=== PATIENT | female | born 1945 | race Caucasian/White ===

== ENCOUNTER → 2020-06-09 09:13 | Outpatient (BNVA) | payer MEDICARE, SELFPAY | PROVIDERS: PCP Internal Medicine; Visit Provider Surgery Vascular Surgery | DX: I83.893 Varicose veins of bilateral lower extremities with other complications (principal); I83.12 Varicose veins of left lower extremity with inflammation | CPT/HCPCS: 99213 ==

== ENCOUNTER 2020-06-22 10:55 | Outpatient (REF) | payer MEDICARE, SELFPAY | END 2020-06-22 10:56 | disposition home or self-care (01) | LOC: HO.LAB 10:55 | PROVIDERS: Visit Provider Nurse Practitioner Family | DX: N39.0 Urinary tract infection, site not specified (principal); R31.9 Hematuria, unspecified | CPT/HCPCS: 87086; 87088; 87186 ==

== ENCOUNTER → 2020-06-24 08:38 | Outpatient (BNVA) | payer MEDICARE, SELFPAY | PROVIDERS: PCP Internal Medicine; Referring Provider Internal Medicine; Visit Provider Surgery Vascular Surgery | DX: I83.12 Varicose veins of left lower extremity with inflammation (principal) | CPT/HCPCS: 36482 ==

== ENCOUNTER 2020-06-27 15:32 | Outpatient (REF) | payer MEDICARE, SELFPAY ==
--- NOTE | 2020-06-27 | US_ITS ---
EXAMINATION: TRIPLEX SCANNING OF LEFT LOWER EXTREMITY; SUPERFICIAL ULTRASOUND WITH DOPPLER OF LEFT LOWER EXTREMITY CLINICAL INFORMATION: Status post venous seal ablation of the left great saphenous vein. COMPARISON: 10/16/2019. TECHNIQUE: Color flow triplex imaging and compression Doppler were performed as well as superficial ultrasound with Doppler. FINDINGS: TRIPLEX SCANNING OF LEFT LOWER EXTREMITY: Respiratory variation, normal compression and augmented flow are noted throughout the lower extremity. The visualized common femoral vein, femoral vein, profunda femoral vein, popliteal vein and the calf veins show no evidence of deep venous thrombosis. There is no evidence of Bender's cyst. SUPERFICIAL ULTRASOUND WITH DOPPLER OF LEFT LOWER EXTREMITY: The left great saphenous vein is occluded with thrombus or occlusion extending in through the saphenofemoral junction for a length of 0.8 cm. There is no evidence of thrombus extending to the wall of the great saphenous vein and there is no impediment to flow. The deep venous system otherwise appears normal. US/US venous duplex LE IMPRESSION: Left great saphenous vein is occluded 0.8 cm with a small nubbin of thrombus/glue extending into the left common femoral vein.
== END 2020-06-27 15:33 | disposition home or self-care (01) ==
LOC: HO.US 15:32
PROVIDERS: PCP Internal Medicine; Visit Provider Surgery Vascular Surgery
DX: M79.605 Pain in left leg (principal)
CPT/HCPCS: 93971

== ENCOUNTER → 2020-07-07 09:04 | Outpatient (BNVA) | payer MEDICARE, SELFPAY | PROVIDERS: PCP Internal Medicine; Visit Provider Surgery Vascular Surgery | DX: I83.12 Varicose veins of left lower extremity with inflammation (principal); I83.11 Varicose veins of right lower extremity with inflammation; Z96.653 Presence of artificial knee joint, bilateral; Z88.8 Allergy status to other drugs, medicaments and biological substances; Z88.0 Allergy status to penicillin; Z91.013 Allergy to seafood | CPT/HCPCS: 99212 ==

== ENCOUNTER 2020-08-03 12:14 | Outpatient (REF) | payer MEDICARE, SELFPAY | END 2020-08-03 12:15 | disposition home or self-care (01) | LOC: HO.LAB 12:14 | PROVIDERS: Visit Provider Nurse Practitioner Family | DX: Z13.9 Encounter for screening, unspecified (principal) | CPT/HCPCS: 87086 ==

== ENCOUNTER → 2020-08-12 09:00 | Outpatient (BNVA) | payer MEDICARE, SELFPAY | PROVIDERS: PCP Internal Medicine; Referring Provider Internal Medicine; Visit Provider Surgery Vascular Surgery | DX: I83.11 Varicose veins of right lower extremity with inflammation (principal) | CPT/HCPCS: 36482 ==

== ENCOUNTER 2020-08-15 11:20 | Outpatient (REF) | payer MEDICARE, SELFPAY ==
--- NOTE | 2020-08-15 | US_ITS ---
EXAMINATION: US VENOUS ULTRASOUND WITH DOPPLER LOWER EXTREMITY, RIGHT CLINICAL INFORMATION: Status post right venaSeal COMPARISON: None TECHNIQUE: Ultrasound of the deep veins is performed from the hip to the calf with compression sonography and color and pulse Doppler assessment. Spectral analysis with color-flow imaging is performed. FINDINGS: There is normal venous compression and respiratory variation and augmented flow. The visualized common femoral vein, superficial femoral vein, profunda femoral vein, popliteal vein, and the trifurcation region shows no evidence of deep venous thrombosis. There is no significant popliteal fossa cyst. There is greater saphenous venous clot approximately 5 cm from common femoral venous junction. US/US venous duplex LE RT IMPRESSION: No DVT demonstrated in the right lower extremity. There is a clot in the greater saphenous vein approximate 5 cm from common femoral venous junction.
== END 2020-08-15 11:21 | disposition home or self-care (01) ==
LOC: HO.HMGCX 11:20
PROVIDERS: PCP Internal Medicine; Visit Provider Surgery Vascular Surgery
DX: M79.604 Pain in right leg (principal)
CPT/HCPCS: 93971

== ENCOUNTER → 2020-08-23 08:49 | Outpatient (BNVA) | payer MEDICARE, SELFPAY | PROVIDERS: PCP Internal Medicine; Visit Provider Surgery Vascular Surgery | DX: I83.11 Varicose veins of right lower extremity with inflammation (principal); I73.00 Raynaud's syndrome without gangrene | CPT/HCPCS: 99212 ==

== ENCOUNTER 2020-08-24 11:29 | Outpatient (REF) | payer MEDICARE, SELFPAY ==
[2020-08-24 14:06] LABS: MANUAL DIFF FLAG NO
[2020-08-24 14:17] LABS: Basophils Percent Auto 0.4 % (0-2); Eosinophils Absolute Auto 0.1 X10*3/uL (0.0-0.4); Eosinophils Percent Auto 1.7 % (0-4); Hematocrit 41.6 % (37-47); Hemoglobin 13.5 g/dl (12.0-16.0); Imm Gran Abs Auto 0.01 X10*3/uL (0.00-0.03); Imm Gran Pct Auto 0.1 % (0.0-0.4); Lymphocytes Absolute Auto 2.4 X10*3/uL (1.2-4.9); Lymphocytes Percent Auto 32.9 % (20-40); Mean Corpuscular HGB Conc 32.5 g/dl (31.0-35.0); Mean Corpuscular Hemoglobin 31.3 pg (27.0-33.0); Mean Corpuscular Volume 96.5 fL (80-98); Mean Platelet Volume 10.3 fL (9.4-12.3); Monocytes Absolute Auto 0.7 X10*3/uL (0.1-1.2); Monocytes Percent Auto 9.8 % (2-11); Neutrophils Percent Auto 55.1 % (45-73); Platelet Count 246 X10*3/uL (160-400); Red Blood Count 4.31 X10*6/uL (4.20-5.50); Red Cell Distribution Width 12.5 % (11.0-16.0); White Blood Count 7.2 X10*3/uL (4.8-10.8)
[2020-08-24 14:46] LABS: Alanine Aminotransferase 27 U/L (0-31); Albumin Level 4.5 g/dL (3.5-5.0); Alkaline Phosphatase 76 U/L (39-117); Anion Gap 13 (12-20); Aspartate Amino Transferase 23 U/L (5-31); Bilirubin Direct < 0.2 mg/dL (0.0-0.5); Bilirubin Total 0.3 mg/dL (0.0-1.0); Blood Urea Nitrogen 20 mg/dL (9-16); Calcium 9.4 mg/dL (8.4-10.2); Carbon Dioxide 30 mmol/L (22-29); Chloride 103 mmol/L (96-108); Estimated Glomerular Filt Rate > 60; Glucose Random 92 mg/dL (60-115); Potassium 4.6 mmol/l (3.3-5.1); Sodium 141 mmol/L (135-145); Total Protein 7.3 g/dL (6.5-8.0)
[2020-08-24 14:56] LABS: TSH reflex Free T4 2.35 mIU/mL (0.32-4.0)
[2020-08-25 08:57] LABS: LDL Cholesterol Direct 108 mg/dL (<100)
[2020-08-28 11:37] LABS: Vitamin D 25-OH, D2 <4 ng/mL; Vitamin D 25-OH, D3 22 ng/mL; Vitamin D 25-OH, Total 22 ng/mL (30-100)
== END 2020-08-24 11:30 | disposition home or self-care (01) ==
LOC: HO.HMGCLDS 11:29
PROVIDERS: PCP Internal Medicine; Visit Provider Internal Medicine
DX: R03.0 Elevated blood-pressure reading, without diagnosis of hypertension (principal); Z00.01 Encounter for general adult medical examination with abnormal findings; E66.9 Obesity, unspecified; M19.90 Unspecified osteoarthritis, unspecified site
CPT/HCPCS: 36415; 80048; 80076; 82306; 83721; 84443; 85025

== ENCOUNTER 2020-12-22 07:58 | Outpatient (REF) | payer MEDICARE, SELFPAY ==
[2020-12-22 11:39] LABS: Hemoglobin 13.3 g/dl (12.0-16.0)
[2020-12-22 11:51] LABS: Alanine Aminotransferase 24 U/L (0-31); Albumin Level 4.4 g/dL (3.5-5.0); Alkaline Phosphatase 73 U/L (39-117); Anion Gap 13 (12-20); Aspartate Amino Transferase 20 U/L (5-31); Bilirubin Direct 0.2 mg/dL (0.0-0.5); Bilirubin Total 0.4 mg/dL (0.0-1.0); Blood Urea Nitrogen 19 mg/dL (9-16); Calcium 9.3 mg/dL (8.4-10.2); Carbon Dioxide 29 mmol/L (22-29); Chloride 104 mmol/L (96-108); Estimated Glomerular Filt Rate > 60; Glucose Fasting 101 mg/dL (60-99); Potassium 4.7 mmol/L (3.3-5.1); Sodium 141 mmol/L (135-145)
== END 2020-12-22 07:59 | disposition home or self-care (01) ==
LOC: HO.HMGCLDS 07:58
PROVIDERS: PCP Internal Medicine; Visit Provider Internal Medicine
DX: I10 Essential (primary) hypertension (principal); E66.9 Obesity, unspecified; I83.12 Varicose veins of left lower extremity with inflammation; H57.9 Unspecified disorder of eye and adnexa
CPT/HCPCS: 36415; 80053; 80076; 82248; 85014; 85018

== ENCOUNTER → 2021-03-16 09:50 | Outpatient (BNVA) | payer MEDICARE, SELFPAY | PROVIDERS: PCP Internal Medicine; Visit Provider Surgery Vascular Surgery | DX: I83.12 Varicose veins of left lower extremity with inflammation (principal) | CPT/HCPCS: 99212 ==

== ENCOUNTER 2021-05-27 11:52 | Emergency (ER) | payer MEDICARE, SELFPAY ==
[2021-05-27 11:54] VITALS: BP 157/79; PULSE 73; RESP 18; TEMP 36.8; O2SAT 97; BMI 36.3
--- NOTE | 2021-05-27 13:32 | ECG_ITS ---
Test Reason : HYPERTENSSION Blood Pressure : / mmHG Vent. Rate : 061 BPM Atrial Rate : 061 BPM P-R Int : 246 ms QRS Dur : 094 ms QT Int : 416 ms P-R-T Axes : -11 -29 -01 degrees QTc Int : 418 ms Sinus rhythm with 1st degree A-V block Cannot rule out Anterior infarct , age undetermined Abnormal ECG When compared with ECG of 17-AUG-2019 20:28, SD interval has increased Referred By: Janey Camacho Electronically Signed By:ALPA MARTINEZ
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
[2021-05-27] MEDS: Acetaminophen 325 MG TABLET 650 MG PO (14:14)
[2021-05-27 14:15] VITALS: BP 133/79; PULSE 61; RESP 18; O2SAT 98
[2021-05-27 14:17] LABS: MANUAL DIFF FLAG NO
[2021-05-27 14:22] LABS: Basophils Percent Auto 0.3 % (0-2); Eosinophils Absolute Auto 0.1 X10*3/uL (0.0-0.4); Eosinophils Percent Auto 1.6 % (0-4); Hematocrit 41.7 % (37-47); Hemoglobin 13.7 g/dl (12.0-16.0); Imm Gran Abs Auto 0.03 X10*3/uL (0.00-0.03); Imm Gran Pct Auto 0.3 % (0.0-0.4); Lymphocytes Absolute Auto 1.8 X10*3/uL (1.2-4.9); Lymphocytes Percent Auto 19.8 % (20-40); Mean Corpuscular HGB Conc 32.9 g/dl (31.0-35.0); Mean Corpuscular Hemoglobin 31.1 pg (27.0-33.0); Mean Corpuscular Volume 94.8 fL (80-98); Mean Platelet Volume 10.5 fL (9.4-12.3); Monocytes Absolute Auto 0.7 X10*3/uL (0.1-1.2); Neutrophils Absolute Auto 6.3 X10*3/uL (2.0-8.3); Platelet Count 205 X10*3/uL (160-400); Red Cell Distribution Width 12.2 % (11.0-16.0)
[2021-05-27 14:29] LABS: Anion Gap 13 (12-20); Blood Urea Nitrogen 12 mg/dL (9-16); Calcium 9.3 mg/dL (8.4-10.2); Carbon Dioxide 26 mmol/L (22-29); Chloride 107 mmol/L (96-108); Creatinine Clr Calc Pharmacy 76.2; Estimated Glomerular Filt Rate > 60; Glucose Random 96 mg/dL (60-115); Potassium 4.9 mmol/L (3.3-5.1); Sodium 141 mmol/L (135-145)
== END 2021-05-27 16:08 | disposition home or self-care (01) ==
PROVIDERS: Nurse Practitioner Family; Emergency Provider Emergency Medicine Emergency Medical Services; PCP Internal Medicine
DX: R03.0 Elevated blood-pressure reading, without diagnosis of hypertension (principal); I10 Essential (primary) hypertension; R51.9 Headache, unspecified; I73.00 Raynaud's syndrome without gangrene; F41.9 Anxiety disorder, unspecified; Z79.82 Long term (current) use of aspirin; Z79.899 Other long term (current) drug therapy
CPT/HCPCS: 36415; 80048; 85025; 93005; 99283; 99284

== ENCOUNTER → 2021-06-07 09:35 | Outpatient (BNVA) | payer MEDICARE, SELFPAY | PROVIDERS: PCP Internal Medicine; Referring Provider Internal Medicine; Visit Provider Nurse Practitioner Family | DX: I10 Essential (primary) hypertension (principal) | CPT/HCPCS: 99202 ==

== ENCOUNTER 2021-06-12 08:00 | Outpatient (REF) | payer MEDICARE, SELFPAY ==
[2021-06-12 11:54] LABS: MANUAL DIFF FLAG NO
[2021-06-12 12:14] LABS: Basophils Percent Auto 0.5 % (0-2); Eosinophils Absolute Auto 0.2 X10*3/uL (0.0-0.4); Eosinophils Percent Auto 1.8 % (0-4); Hematocrit 41.2 % (37-47); Hemoglobin 13.4 g/dl (12.0-16.0); Imm Gran Abs Auto 0.03 X10*3/uL (0.00-0.03); Imm Gran Pct Auto 0.4 % (0.0-0.4); Lymphocytes Percent Auto 23.7 % (20-40); Mean Corpuscular HGB Conc 32.5 g/dl (31.0-35.0); Mean Corpuscular Volume 95.4 fL (80-98); Mean Platelet Volume 11.4 fL (9.4-12.3); Monocytes Absolute Auto 0.8 X10*3/uL (0.1-1.2); Monocytes Percent Auto 9.3 % (2-11); Neutrophils Absolute Auto 5.3 X10*3/uL (2.0-8.3); Neutrophils Percent Auto 64.3 % (45-73); Platelet Count 261 X10*3/uL (160-400); Red Blood Count 4.32 X10*6/uL (4.20-5.50); Red Cell Distribution Width 12.4 % (11.0-16.0); White Blood Count 8.3 X10*3/uL (4.8-10.8)
[2021-06-12 12:20] LABS: Alanine Aminotransferase 25 U/L (0-31); Albumin Level 4.4 g/dL (3.5-5.0); Alkaline Phosphatase 71 U/L (39-117); Anion Gap 12 (12-20); Aspartate Amino Transferase 20 U/L (5-31); Bilirubin Total 0.6 mg/dL (0.0-1.0); Blood Urea Nitrogen 20 mg/dL (9-16); Calcium 9.6 mg/dL (8.4-10.2); Carbon Dioxide 28 mmol/L (22-29); Chloride 106 mmol/L (96-108); Cholesterol 155 mg/dL; Estimated Glomerular Filt Rate > 60; Glucose Fasting 107 mg/dL (60-99); HDL Cholesterol 55 mg/dL; LDL Cholesterol Calculated 87 mg/dl; Potassium 5.4 mmol/L (3.3-5.1); Sodium 141 mmol/L (135-145); Total Protein 7.2 g/dL (6.5-8.0); Triglycerides 68 mg/dL
== END 2021-06-12 08:01 | disposition home or self-care (01) ==
LOC: HO.HMGCLDS 08:00
PROVIDERS: PCP Internal Medicine; Visit Provider Internal Medicine
DX: E66.9 Obesity, unspecified (principal); E78.9 Disorder of lipoprotein metabolism, unspecified; I10 Essential (primary) hypertension
CPT/HCPCS: 36415; 80053; 80061; 85025

== ENCOUNTER 2021-06-14 07:34 | Outpatient (REF) | payer MEDICARE, SELFPAY ==
--- NOTE | ~2021-06-14 | US_ITS ---
EXAMINATION: US VENOUS DOPPLER LOWER EXTREMITY, BILATERAL CLINICAL INDICATION: Lower extremity varicose veins. COMPARISON: 08/15/2020 and 06/27/2020. TECHNIQUE: Color-flow triplex imaging and compression Doppler were performed to evaluate both the deep and the superficial systems bilaterally. To evaluate the superficial system, the examination was performed in the upright position. Color-flow Doppler ultrasound and compression ultrasound were utilized. In addition, maneuvers were utilized to demonstrate reflux. FINDINGS: 1. DEEP VENOUS ULTRASOUND OF THE RIGHT LOWER EXTREMITY: Common Femoral Vein: Compressible, normal respiratory variation and augmented flow. Femoral Vein: Compressible, normal color flow and augmentation. Popliteal Vein: Compressible, normal augmentation. Deep Reflux: There is no evidence of reflux in the deep system in either the common femoral vein or the popliteal vein. There is no evidence of a Bender's cyst. 2. SUPERFICIAL ULTRASOUND WITH DOPPLER OF RIGHT LOWER EXTREMITY GREAT SAPHENOUS VEIN: Saphenofemoral Junction: 1.0 cm. Reflux: No evidence of reflux. Maximum diameter: 1.0 Minimum diameter: 0.3 Reflux: The great saphenous vein is occluded at the proximal thigh. There is venous insufficiency throughout the remaining great saphenous vein from the mid thigh to the ankle measuring up to 3.2 seconds. DUPLICATED MEDIAL GREAT SAPHENOUS VEIN: Maximum Diameter: 0.5 cm Reflux: No reflux. DUPLICATED LATERAL GREAT SAPHENOUS VEIN: Diameter: None imaged. Reflux: N/A SMALL SAPHENOUS VEIN: Saphenopopliteal Junction: 0.2 cm. Reflux: No evidence of reflux. Minimum Diameter: 0.2 Reflux: No evidence of reflux. VEIN OF GIACOMINI: None imaged. PERFORATORS: Location: None imaged. Reflux: N/A VARICOSITIES: Location: Mid thigh, distal thigh, at knee and proximal calf. All varicosities measure 3 mm in diameter. Reflux: Reflux is demonstrated in all varicosities measuring up to 2.3 seconds. 3. DEEP VENOUS ULTRASOUND OF THE LEFT LOWER EXTREMITY: Common Femoral Vein: Compressible, normal respiratory variation and augmented flow. Femoral Vein: Compressible, normal color flow and augmentation. Popliteal Vein: Compressible, normal augmentation. Deep Reflux: Popliteal vein, greater than 3.1 seconds. There is no evidence of a Bender's cyst. 4. SUPERFICIAL ULTRASOUND WITH DOPPLER OF LEFT LOWER EXTREMITY GREAT SAPHENOUS VEIN: Saphenopopliteal Junction: 0.6 cm. Reflux: No evidence of reflux. Maximum Diameter: 0.6 Minimum Diameter: 0.2 Reflux: There is 1.5 seconds of reflux at the proximal thigh. The saphenous vein is closed from the mid thigh to below the knee. The saphenous vein is patent at the mid calf and ankle demonstrating gross reflux up to 3.4 seconds. DUPLICATED MEDIAL GREAT SAPHENOUS VEIN: Maximum Diameter: None imaged. Reflux: N/A DUPLICATED LATERAL GREAT SAPHENOUS VEIN: Diameter: 0.3 cm Reflux: No reflux. SMALL SAPHENOUS VEIN: Saphenofemoral Junction: 0.2 cm. Reflux: No evidence of reflux. Minimum Diameter: 0.1 Reflux: No evidence of reflux. VEIN OF GIACOMINI: None imaged. PERFORATORS: Location: None imaged. Reflux: N/A VARICOSITIES: Location: Proximal calf, 0.3 cm. Reflux: Greater than 0.9 seconds of reflux. US/US venous duplex LE BI IMPRESSION: 1. The right great saphenous vein is occluded at the proximal thigh, however there is gross venous insufficiency from the mid thigh to the ankle below the site of occlusion. 2. The left great saphenous vein is occluded from the mid thigh to below the knee. There is reflux within the left great saphenous vein at the mid calf and ankle. 3. There are bilateral refluxing varicosities. 4. Deep venous insufficiency involving the left popliteal vein. 5. No evidence of DVT.
== END 2021-06-14 07:35 | disposition home or self-care (01) ==
LOC: HO.US 07:34
PROVIDERS: PCP Internal Medicine; Visit Provider Surgery Vascular Surgery
DX: I83.12 Varicose veins of left lower extremity with inflammation (principal)
CPT/HCPCS: 93970

== ENCOUNTER 2021-06-19 08:01 | Outpatient (REF) | payer MEDICARE, SELFPAY ==
[2021-06-19 12:07] LABS: Anion Gap 12 (12-20); Carbon Dioxide 25 mmol/L (22-29); Chloride 109 mmol/L (96-108); Potassium 4.9 mmol/L (3.3-5.1); Sodium 141 mmol/L (135-145)
== END 2021-06-19 08:02 | disposition home or self-care (01) ==
LOC: HO.HMGCLDS 08:01
PROVIDERS: PCP Internal Medicine; Visit Provider Internal Medicine
DX: E87.5 Hyperkalemia (principal)
CPT/HCPCS: 36415; 80051

== ENCOUNTER → 2021-06-27 09:01 | Outpatient (BNVA) | payer MEDICARE, SELFPAY | PROVIDERS: PCP Internal Medicine; Visit Provider Surgery Vascular Surgery | DX: I83.11 Varicose veins of right lower extremity with inflammation (principal); I10 Essential (primary) hypertension; E78.5 Hyperlipidemia, unspecified; Z87.891 Personal history of nicotine dependence; Z96.653 Presence of artificial knee joint, bilateral | CPT/HCPCS: 99212 ==

== ENCOUNTER → 2021-07-24 08:10 | Outpatient (REF) | payer MEDICARE, SELFPAY ==
--- NOTE | 2021-07-24 08:13 | CA_ITS ---
Transthoracic Echocardiogram Patient (Last, First, Middle): Eufemia Jimenez P Gender: Female Date of : 1945 Age: 75 Procedure Date: 07/24/2021 Procedure Type: Transthoracic Echocardiogram Location: OP Height: 160.02 cm Weight: 95.26 kg BSA: 1.97 m2 Heart Rate: bpm BP: 138 / 80 mmHg Railroad Surveyor: MINDY Izquierdo MD: Rachael Shah NP-[facility] Specialist: Delfin Porras MD Symptoms: I10 - Essential (primary) hypertension Study Quality: Fair ECG Rhythm: Sinus Conclusions: - 1. Normal LV systolic function with impaired relaxation filling pattern 2. Mild aortic stenosis 3. Normal RV systolic pressure 4. No gross pericardial effusion Findings Left Ventricle Normal left ventricular size, thickness, and systolic function. The visually estimated ejection fraction is between 55-60%. Spectral Doppler is indicative of an impaired relaxation filling pattern. E/E prime ratio is between 8 and 15 consistent with indeterminate filling pressures. Right Ventricle Normal right ventricular cavity size and systolic function. Atria The left atrium is likely dilated. Interatrial shunt cannot be excluded. The right atrium is normal in size. Aortic Valve There is mild calcification of the aortic valve. There is mild thickening of the aortic valve. There is mild aortic valve stenosis. The peak aortic gradient is 18 mmHg.The mean gradient is 9 mmHg. The aortic valve area is 1.72 cm2. There is no aortic valve regurgitation. Mitral Valve There is mild anterior and posterior mitral leaflet thickening. There is mild mitral annular calcification. There is trace mitral valve regurgitation. There is no mitral valve stenosis. Pulmonic Valve The pulmonic valve was not well visualized. Tricuspid Valve Likely normal tricuspid valve structure and function. There is mild tricuspid valve regurgitation. The right ventricular systolic pressure is normal. The right ventricular systolic pressure is 35 mmHg. Normal right atrial pressure. There is no evidence of pulmonary hypertension. Great Vessels All visible segments of the aorta are normal in size. The pulmonary artery was not well visualized. Venous The inferior vena cava is normal in size and collapses greater than 50% with inspiration. Pericardium/Pleural There is no evidence of pericardial effusion. Prior Study Comparison no previous study in the last 5 years for comparison Measurements 2D Linear Measurements IVSd: 0.96 0.6-0.9/0.6-1.0 cm LVIDd: 4.13 3.9-5.3/4.2-5.9 cm LVIDd Index: 2.10 2.4-3.2/2.2-3.1 cm/m2 LVIDs: 2.77 2.0-3.6 cm LVPWd: 0.97 0.7-1.1 cm Ao Root: 2.80 2.1-3.5 cm LA Diam: 3.90 2.7-3.8/3.0-4.0 cm LAIDs Index: 1.98 1.5-2.3 cm/m2 LV Mass: 158.07 67-162/88-224 g LV Mass Index: 80.24 43-95/49-115 g/m2 LVOT Diam: 2.00 3.0+(-)1.3 cm 2D Systolic Function EF 4C: 55.10 >55% EF 2C: 60.00 >55% EF BiP: 57.40 >55% Mitral Valve MV Pk E: 1.05 MV PK A: 1.09 MV Decel Time: 168.00 E/A: 1.00 E'Lateral: 9.68 E'Medial: 8.16 E/E' Med: 12.90 E/E' Lat: 10.80 PHT: 49.00 MVA PHT: 4.49 Decel Clark: 6.27 Aortic Valve AoV Pk Jose: 2.10 AoV Mn Jose: 1.41 AoV VTI: 0.49 AoV Pk Grad: 18.00 Aov Mn Grad: 9.00 KERI Cont.VTI: 1.72 LVOT LVOT Pk Jose: 1.11 LVOT Mn Jose: 0.71 LVOT VTI: 0.27 LVOT Pk Grad: 5.00 LVOT Mn Grad: 2.00 LVOT Diam: 2.00 LVOT Area: 3.14 Diastolic Function MV Pk E: 1.05 MV Pk A: 1.09 E/A: 1.00 E'Medial: 8.16 E/E' Med: 12.90 E' Laterial: 9.68 E/E' Lat: 10.80 Right Ventricle TAPSE (mm): 2.36 TVS' Jose: 11.40 Tricuspid Valve TR Pk Jose: 2.85 TR Pk Grad: 32.00 RA Press: 3.00 RVSP: 35.00 Great Vessels Aorta Ao Root-2D: 2.80 2.0-3.7 cm Ao Asc: 2.90 2.1-3.4 cm Ao Arch: 2.20 Updated in Other Vendor System with Status of Final Delfin Porras MD electronically signed on 07/24/2021 4:31:18 PM with status of Final
== END ==
LOC: HO.CARD 08:10
PROVIDERS: PCP Internal Medicine; Visit Provider Nurse Practitioner Family
DX: I10 Essential (primary) hypertension (principal)
CPT/HCPCS: 93306

== ENCOUNTER → 2021-08-01 12:48 | Outpatient (BNVA) | payer MEDICARE, SELFPAY | PROVIDERS: PCP Internal Medicine; Referring Provider Internal Medicine; Visit Provider Nurse Practitioner Family | DX: I10 Essential (primary) hypertension (principal); I35.0 Nonrheumatic aortic (valve) stenosis; E78.5 Hyperlipidemia, unspecified; E66.9 Obesity, unspecified; Z68.36 Body mass index [BMI] 36.0-36.9, adult; Z87.891 Personal history of nicotine dependence; Z96.653 Presence of artificial knee joint, bilateral; Z90.410 Acquired total absence of pancreas; Z80.42 Family history of malignant neoplasm of prostate; Z80.0 Family history of malignant neoplasm of digestive organs; Z91.013 Allergy to seafood; Z88.8 Allergy status to other drugs, medicaments and biological substances; Z79.82 Long term (current) use of aspirin; Z79.899 Other long term (current) drug therapy | CPT/HCPCS: 99212 ==

== ENCOUNTER 2021-08-18 07:30 | Outpatient (REF) | payer MEDICARE, SELFPAY ==
--- NOTE | ~2021-08-18 | US_ITS ---
EXAMINATION: ULTRASOUND OF KIDNEYS WITH RENAL ARTERY DOPPLER CLINICAL INFORMATION: Hypertension. COMPARISON: CT abdomen pelvis on 12/21/2017. TECHNIQUE: Ultrasound of the kidneys was performed along with color flow Doppler imaging and velocity measurements in the proximal mid and distal renal arteries. Aortic velocities were measured and renal/aortic ratios were calculated. FINDINGS: The kidneys appeared normal with the right kidney measuring 10.6 cm and the left kidney measuring 11.2 cm. No renal masses, renal stones or hydronephrosis is seen. Renal cortical thickness appears normal. Velocity measurements in the proximal mid and distal renal arteries are normal. Velocity in the aorta is normal and, therefore, the renal aortic ratios are normal.. The bladder appeared unremarkable. US/US renal doppler IMPRESSION: No evidence to suggest renal artery stenosis.
--- NOTE | ~2021-08-18 | US_ITS ---
EXAMINATION: ULTRASOUND OF KIDNEYS WITH RENAL ARTERY DOPPLER CLINICAL INFORMATION: Hypertension. COMPARISON: CT abdomen pelvis on 12/21/2017. TECHNIQUE: Ultrasound of the kidneys was performed along with color flow Doppler imaging and velocity measurements in the proximal mid and distal renal arteries. Aortic velocities were measured and renal/aortic ratios were calculated. FINDINGS: The kidneys appeared normal with the right kidney measuring 10.6 cm and the left kidney measuring 11.2 cm. No renal masses, renal stones or hydronephrosis is seen. Renal cortical thickness appears normal. Velocity measurements in the proximal mid and distal renal arteries are normal. Velocity in the aorta is normal and, therefore, the renal aortic ratios are normal.. The bladder appeared unremarkable. US/US renal BI IMPRESSION: No evidence to suggest renal artery stenosis.
== END 2021-08-18 07:31 | disposition home or self-care (01) ==
LOC: HO.US 07:30
PROVIDERS: PCP Internal Medicine; Visit Provider Nurse Practitioner Family
DX: I10 Essential (primary) hypertension (principal)
CPT/HCPCS: 76775; 93975

== ENCOUNTER → 2021-10-20 07:24 | Outpatient (BNVA) | payer MEDICARE, SELFPAY | PROVIDERS: PCP Internal Medicine; Visit Provider Surgery Vascular Surgery | DX: I83.11 Varicose veins of right lower extremity with inflammation (principal) | CPT/HCPCS: 36482 ==

== ENCOUNTER 2021-10-24 14:37 | Outpatient (REF) | payer MEDICARE, SELFPAY ==
--- NOTE | ~2021-10-24 | US_ITS ---
EXAMINATION: US VENOUS ULTRASOUND WITH DOPPLER LOWER EXTREMITY, RIGHT CLINICAL INFORMATION: Pain. Post vena seal procedure October 20 2021 COMPARISON: Previous exam June 2021 TECHNIQUE: Ultrasound of the deep veins is performed from the hip to the calf with compression sonography and color and pulse Doppler assessment. Spectral analysis with color-flow imaging is performed. FINDINGS: There is normal venous compression and respiratory variation and augmented flow. The visualized common femoral vein, superficial femoral vein, profunda femoral vein, popliteal vein, and the trifurcation region shows no evidence of deep venous thrombosis. There is echogenic material seen in the right greater saphenous vein post vena seal procedure. This is 2.7 cm from the saphenofemoral junction. The right greater saphenous vein appears closed. There is no significant popliteal fossa cyst. US/US venous duplex LE RT IMPRESSION: No DVT demonstrated in the right lower extremity.
== END 2021-10-24 14:38 | disposition home or self-care (01) ==
LOC: HO.US 14:37
PROVIDERS: PCP Internal Medicine; Visit Provider Surgery Vascular Surgery
DX: M79.604 Pain in right leg (principal)
CPT/HCPCS: 93971

== ENCOUNTER → 2021-11-02 08:44 | Outpatient (BNVA) | payer MEDICARE, SELFPAY | PROVIDERS: PCP Internal Medicine; Visit Provider Surgery Vascular Surgery | DX: I83.12 Varicose veins of left lower extremity with inflammation (principal) | CPT/HCPCS: 99212 ==

== ENCOUNTER 2022-01-24 15:36 | Outpatient (REF) | payer MEDICARE, SELFPAY ==
--- NOTE | ~2022-01-24 | XR_ITS ---
EXAMINATION: XR SHOULDER, RIGHT CLINICAL INFORMATION: Right shoulder pain and decreased range of motion. Injury. COMPARISON: None TECHNIQUE: Three views of the right shoulder. FINDINGS: Bone alignment is normal. No fracture or dislocation is seen. The glenohumeral joint is normal. There is arthritis at the acromioclavicular joint. Soft tissues are normal. XR/XR shoulder RT min 2V IMPRESSION: No fracture or dislocation. Arthritis at the acromioclavicular joint.
== END 2022-01-24 15:37 | disposition home or self-care (01) ==
LOC: HO.HMGCX 15:36
PROVIDERS: PCP Internal Medicine; Visit Provider Internal Medicine
DX: M25.511 Pain in right shoulder (principal)
CPT/HCPCS: 73030

== ENCOUNTER 2022-01-31 09:18 | Outpatient (REF) | payer MEDICARE, SELFPAY ==
[2022-01-31 11:11] LABS: MANUAL DIFF FLAG NO
[2022-01-31 11:34] LABS: Basophils Percent Auto 0.5 % (0-2); Eosinophils Absolute Auto 0.1 X10*3/uL (0.0-0.4); Eosinophils Percent Auto 1.5 % (0-4); Hematocrit 40.5 % (37.0-47.0); Hemoglobin 13.1 g/dl (12.0-16.0); Imm Gran Abs Auto 0.01 X10*3/uL (0.00-0.03); Imm Gran Pct Auto 0.1 % (0.0-0.4); Lymphocytes Percent Auto 27.2 % (20-40); Mean Corpuscular HGB Conc 32.3 g/dl (31.0-35.0); Mean Corpuscular Hemoglobin 30.5 pg (27.0-33.0); Mean Corpuscular Volume 94.4 fL (80.0-98.0); Monocytes Absolute Auto 0.7 X10*3/uL (0.1-1.2); Monocytes Percent Auto 9.9 % (2-11); Neutrophils Absolute Auto 4.5 x10*3/uL (2.0-8.3); Neutrophils Percent Auto 60.8 % (45-73); Platelet Count 204 X10*3/uL (160-400); Red Blood Count 4.29 X10*6/uL (4.20-5.50); Red Cell Distribution Width 12.5 % (11.0-16.0); White Blood Count 7.4 X10*3/uL (4.8-10.8)
[2022-01-31 12:16] LABS: Alanine Aminotransferase 22 U/L (0-31); Albumin Level 4.4 g/dL (3.5-5.0); Alkaline Phosphatase 65 U/L (39-117); Anion Gap 13 (12-20); Aspartate Amino Transferase 19 U/L (5-31); Bilirubin Direct 0.2 mg/dL (0.0-0.5); Bilirubin Total 0.4 mg/dL (0.0-1.0); Blood Urea Nitrogen 24 mg/dL (9-16); Carbon Dioxide 29 mmol/L (22-29); Chloride 104 mmol/L (96-108); Cholesterol 164 mg/dL; Estimated Glomerular Filt Rate > 60; Glucose Fasting 100 mg/dL (60-99); HDL Cholesterol 52 mg/dL; LDL Cholesterol Calculated 93 mg/dl; Sodium 141 mmol/L (135-145); Total Protein 7.2 g/dL (6.5-8.0); Triglycerides 95 mg/dL
== END 2022-01-31 09:19 | disposition home or self-care (01) ==
LOC: HO.HMGCLDS 09:18
PROVIDERS: PCP Internal Medicine; Visit Provider Internal Medicine
DX: R53.83 Other fatigue (principal); E78.5 Hyperlipidemia, unspecified
CPT/HCPCS: 36415; 80051; 80061; 80076; 82565; 82947; 84520; 85025

== ENCOUNTER → 2022-02-14 12:54 | Outpatient (BNVA) | payer MEDICARE, SELFPAY | PROVIDERS: PCP Internal Medicine; Referring Provider Internal Medicine; Visit Provider Nurse Practitioner Family | DX: I10 Essential (primary) hypertension (principal); I35.0 Nonrheumatic aortic (valve) stenosis | CPT/HCPCS: 99212 ==

== ENCOUNTER → 2023-01-30 07:37 | Outpatient (REF) | payer MEDICARE, SELFPAY ==
--- NOTE | 2023-01-30 07:39 | CA_ITS ---
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 Normal LV systolic function with impaired relaxation filling pattern 2. Mild aortic stenosis 3. Normal RV systolic pressure 4. Upper limits of normal ascending aortic size 5. No pericardial effusion Findings Left Ventricle Normal left ventricular size, thickness, and systolic function. The visually estimated ejection fraction is between 60-65%. Spectral Doppler is indicative of an impaired relaxation filling pattern. E/E prime ratio is between 8 and 15 consistent with indeterminate filling pressures. Very focal hypertrophy of the basal septum at 1.3 cm thickness. Peak GLS is -21.5%, within normal limits. Right Ventricle Normal right ventricular cavity size and systolic function. Atria The left atrium is normal in size. There is no evidence of interatrial shunt. The right atrium is normal in size. Aortic Valve There is mild calcification of the aortic valve. There is mild thickening of the aortic valve. There is mild aortic valve stenosis. The peak aortic gradient is 18 mmHg.The mean gradient is 8 mmHg. There is no aortic valve regurgitation. Mitral Valve There is mild anterior and posterior mitral leaflet thickening. There is trace mitral valve regurgitation. There is no mitral valve stenosis. Pulmonic Valve The pulmonic valve is likely normal. There is trace pulmonic valve regurgitation. Tricuspid Valve Normal tricuspid valve structure. There is mild tricuspid valve regurgitation. The right ventricular systolic pressure is normal. The right ventricular systolic pressure is 28 mmHg. Normal right atrial pressure. There is no evidence of pulmonary hypertension. Great Vessels The pulmonary artery was not well visualized. Venous The inferior vena cava is normal in size and collapses greater than 50% with inspiration. Pericardium/Pleural There is no evidence of pericardial effusion. Prior Study Comparison No significant change compared to prior study dated: 07/24/2021. Measurements 2D Linear Measurements IVSd: 1.31 0.6-0.9/0.6-1.0 cm LVIDd: 4.72 3.9-5.3/4.2-5.9 cm LVIDd Index: 2.42 2.4-3.2/2.2-3.1 cm/m2 LVIDs: 2.79 2.0-3.6 cm LVPWd: 0.74 0.7-1.1 cm LA Diam: 3.80 2.7-3.8/3.0-4.0 cm LAIDs Index: 1.95 1.5-2.3 cm/m2 LV Mass: 213.63 67-162/88-224 g LV Mass Index: 109.55 43-95/49-115 g/m2 LVOT Diam: 2.00 3.0+(-)1.3 cm 2D Systolic Function EF 4C: 66.70 >55% EF 2C: 64.10 >55% EF BiP: 64.40 >55% Mitral Valve MV VTI: 0.32 MV Pk Jose: 1.00 MV Mn Jose: 0.56 MV Pk Grad: 4.00 MV Mn Grad: 1.00 MV Pk E: 0.74 MV PK A: 0.96 MV Decel Time: 180.00 E/A: 0.80 E'Lateral: 8.59 E'Medial: 4.90 E/E' Med: 15.10 E/E' Lat: 8.60 PHT: 53.00 MVA PHT: 4.15 MVA Continuity: 2.04 Decel [place]: 4.11 Aortic Valve AoV Pk Jose: 2.10 AoV Mn Jose: 1.33 AoV VTI: 0.48 AoV Pk Grad: 18.00 Aov Mn Grad: 8.00 KERI Cont.VTI: 1.34 LVOT LVOT Pk Ojse: 0.80 LVOT Mn Jose: 0.57 LVOT VTI: 0.21 LVOT Pk Grad: 3.00 LVOT Mn Grad: 1.00 LVOT Diam: 2.00 LVOT Area: 3.14 Diastolic Function MV Pk E: 0.74 MV Pk A: 0.96 E/A: 0.80 E'Medial: 4.90 E/E' Med: 15.10 E' Laterial: 8.59 E/E' Lat: 8.60 Right Ventricle TAPSE (mm): 26.50 TVS' Jose: 11.10 Tricuspid Valve TR Pk Jose: 2.50 TR Pk Grad: 25.00 RA Press: 3.00 RVSP: 28.00 Great Vessels Aorta Sinus of Valsalva: 3.11 2.0-3.[address] [place]: 2.03 1.7-3.4 cm Ao Asc: 3.40 2.1-3.4 cm Updated in Other Vendor System with Status of Final Delfin Porras MD electronically signed on 02/01/2023 12:48:13 PM with status of Final
== END ==
LOC: HO.CARD 07:37
PROVIDERS: PCP Internal Medicine; Visit Provider Nurse Practitioner Family
DX: I35.0 Nonrheumatic aortic (valve) stenosis (principal)
CPT/HCPCS: 93306; 93356

== ENCOUNTER 2023-02-19 12:55 | Outpatient (REF) | payer MEDICARE, SELFPAY ==
[2023-02-19 13:52] LABS: MANUAL DIFF FLAG NO
[2023-02-19 14:32] LABS: Basophils Percent Auto 0.3 % (0-2); Eosinophils Absolute Auto 0.1 X10*3/uL (0.0-0.4); Eosinophils Percent Auto 0.8 % (0-4); Hematocrit 38.2 % (37.0-47.0); Hemoglobin 12.3 g/dl (12.0-16.0); Imm Gran Abs Auto 0.03 X10*3/uL (0.00-0.03); Imm Gran Pct Auto 0.3 % (0.0-0.4); Lymphocytes Absolute Auto 2.3 X10*3/uL (1.2-4.9); Lymphocytes Percent Auto 22.2 % (20-40); Mean Corpuscular HGB Conc 32.2 g/dl (31.0-35.0); Mean Corpuscular Hemoglobin 30.4 pg (27.0-33.0); Mean Corpuscular Volume 94.3 fL (80.0-98.0); Mean Platelet Volume 10.5 fL (9.4-12.3); Monocytes Percent Auto 9.5 % (2-11); Neutrophils Percent Auto 66.9 % (45-73); Platelet Count 258 X10*3/uL (160-400); Red Blood Count 4.05 X10*6/uL (4.20-5.50); White Blood Count 10.4 X10*3/uL (4.8-10.8)
[2023-02-19 15:26] LABS: Alanine Aminotransferase 23 U/L (0-31); Albumin Level 4.2 g/dL (3.5-5.0); Alkaline Phosphatase 71 U/L (39-117); Anion Gap 12 (12-20); Aspartate Amino Transferase 23 U/L (5-31); Bilirubin Total 0.4 mg/dL (0.0-1.0); Blood Urea Nitrogen 22 mg/dL (9-16); Calcium 9.7 mg/dL (8.4-10.2); Carbon Dioxide 26 mmol/L (22-29); Chloride 106 mmol/L (96-108); Cholesterol 140 mg/dL; Estimated Glomerular Filt Rate > 60; Glucose Random 117 mg/dL (60-115); HDL Cholesterol 51 mg/dL; LDL Cholesterol Calculated 72 mg/dl; Sodium 140 mmol/L (135-145); Total Protein 7.3 g/dL (6.5-8.0); Triglycerides 87 mg/dL
== END 2023-02-19 12:56 | disposition home or self-care (01) ==
LOC: HO.LAB 12:55
PROVIDERS: PCP Internal Medicine; Referring Provider Internal Medicine; Visit Provider Nurse Practitioner Family
DX: I10 Essential (primary) hypertension (principal); I35.0 Nonrheumatic aortic (valve) stenosis
CPT/HCPCS: 36415; 80053; 80061; 85025; 99212

== ENCOUNTER 2023-05-09 13:54 | Outpatient (AMB) | payer MEDICARE, SELFPAY ==
[2023-05-09 13:56] VITALS: BMI 36.8
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
== END 2023-05-09 14:16 | disposition home or self-care (01) ==
PROVIDERS: PCP Internal Medicine; Visit Provider Surgery Vascular Surgery
DX: I83.12 Varicose veins of left lower extremity with inflammation (principal); I83.11 Varicose veins of right lower extremity with inflammation
CPT/HCPCS: 99214

== ENCOUNTER → 2023-05-09 13:54 | Outpatient (BNVA) | payer MEDICARE, SELFPAY | PROVIDERS: PCP Internal Medicine; Visit Provider Surgery Vascular Surgery | DX: I83.12 Varicose veins of left lower extremity with inflammation (principal); I83.11 Varicose veins of right lower extremity with inflammation | CPT/HCPCS: 99212 ==

== ENCOUNTER 2023-05-22 08:06 | Outpatient (REF) | payer MEDICARE, SELFPAY ==
--- NOTE | ~2023-05-22 | US_ITS ---
EXAMINATION: US LOWER EXTREMITY VENOUS (REFLUX EXAM), BILATERAL CLINICAL INDICATION: Varicose veins, venous feel of the right GSV on 10/20/2021, left-sided ablation COMPARISON: Right lower extremity duplex on 10/24/2021 TECHNIQUE: Color flow triplex imaging and compression Doppler was performed to evaluate both the deep and the superficial systems bilaterally. To evaluate the superficial system, the examination was performed in the upright position. Color-flow Doppler ultrasound and compression ultrasound were utilized. In addition, maneuvers were utilized to demonstrate reflux. FINDINGS: 1. DEEP VENOUS ULTRASOUND OF THE RIGHT LOWER EXTREMITY: Common Femoral Vein: Compressible, normal respiratory variation and augmented flow. Femoral Vein: Compressible, normal color flow and augmentation. Popliteal Vein: Compressible, normal augmentation. Deep Reflux: There is no evidence of reflux in the deep system in either the common femoral vein or the popliteal vein. There is no evidence of a Bender's cyst. 2. SUPERFICIAL ULTRASOUND WITH DOPPLER OF RIGHT LOWER EXTREMITY: GREAT SAPHENOUS VEIN: Saphenofemoral Junction: 0.5 cm; Reflux: 0 ms Proximal Thigh: 0.3 cm; Reflux: 600 ms Mid Thigh: Occluded Above Knee: 0.3 cm; Reflux: 3116 ms At Knee: 0.4 cm; Reflux: 3512 ms Below Knee: 0.5 cm; Reflux: 3492 ms Mid Calf: 0.3 cm; Reflux: 2956 ms Ankle: 0.3 cm; Reflux: 3220 ms DUPLICATED MEDIAL GREAT SAPHENOUS VEIN: Proximal: 0.3 cm; Reflux: 308 ms Distal: 0.3 cm; Reflux: 0 ms DUPLICATED LATERAL GREAT SAPHENOUS VEIN: Diameter: None imaged Reflux: NA SMALL SAPHENOUS VEIN: Proximal: 0.2 cm; Reflux: 0 ms Distal: 0.2 cm; Reflux: 0 ms VEIN OF GIACOMINI: Size: NA Reflux: NA PERFORATORS: Location: GSV mid thigh Size: 0.3 Reflux: 3256 VARICOSITIES: Location: Multiple varicosities throughout the thigh and calf Size: 0.3 cm Reflux: 3168-3460ms 3. DEEP VENOUS ULTRASOUND OF THE LEFT LOWER EXTREMITY: Common Femoral Vein: Compressible, normal respiratory variation and augmented flow. Femoral Vein: Compressible, normal color flow and augmentation. Popliteal Vein: Compressible, normal augmentation. Deep Reflux: There is no evidence of reflux in the deep system in either the common femoral vein or the popliteal vein. There is no evidence of a Bender's cyst. 4. SUPERFICIAL ULTRASOUND WITH DOPPLER OF LEFT LOWER EXTREMITY: GREAT SAPHENOUS VEIN: Saphenofemoral Junction: 0.8 cm; Reflux: 0 ms Proximal Thigh: 0.4 cm; Reflux: 0 ms Mid Thigh: Occluded Above Knee: Occluded At Knee: Occluded Below Knee: 0.2 cm; Reflux: 0 ms Mid Calf: 0.2 cm; Reflux: 2058 ms Ankle: 0.2 cm; Reflux: 1528 ms DUPLICATED MEDIAL GREAT SAPHENOUS VEIN: Diameter: None imaged Reflux: NA DUPLICATED LATERAL GREAT SAPHENOUS VEIN: Diameter: None imaged Reflux: NA SMALL SAPHENOUS VEIN: Proximal: 0.2 cm; Reflux: 0 ms Distal: 0.1 cm; Reflux: 0 ms VEIN OF GIACOMINI: Size: NA Reflux: NA PERFORATORS: Location: None imaged Size: NA Reflux: NA VARICOSITIES: Location: None Imaged Size: NA Reflux: NA US/US venous duplex LE BI IMPRESSION: 1. Bilateral great saphenous venous insufficiency. There are portions of the GSV bilaterally that are occluded from prior treatment. 2. Multiple refluxing varicosities in the right leg. 3. No DVT or deep venous insufficiency bilaterally.
== END 2023-05-22 08:07 | disposition home or self-care (01) ==
LOC: HO.US 08:06
PROVIDERS: PCP Internal Medicine; Visit Provider Surgery Vascular Surgery
DX: I83.11 Varicose veins of right lower extremity with inflammation (principal)
CPT/HCPCS: 93970

== ENCOUNTER 2023-06-18 12:58 | Outpatient (AMB) | payer MEDICARE, SELFPAY ==
[2023-06-18 13:03] VITALS: BMI 36.8
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
== END 2023-06-18 13:33 | disposition home or self-care (01) ==
PROVIDERS: PCP Internal Medicine; Visit Provider Surgery Vascular Surgery
DX: I83.11 Varicose veins of right lower extremity with inflammation (principal); I83.12 Varicose veins of left lower extremity with inflammation
CPT/HCPCS: 99214

== ENCOUNTER → 2023-06-18 12:58 | Outpatient (BNVA) | payer MEDICARE, SELFPAY | PROVIDERS: PCP Internal Medicine; Visit Provider Surgery Vascular Surgery | DX: I83.11 Varicose veins of right lower extremity with inflammation (principal); I83.12 Varicose veins of left lower extremity with inflammation | CPT/HCPCS: 99212 ==

== ENCOUNTER 2023-08-02 07:24 | Outpatient (AMB) | payer MEDICARE, SELFPAY ==
[2023-08-02 07:40] VITALS: BMI 36.8
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
== END 2023-08-02 09:06 | disposition home or self-care (01) ==
PROVIDERS: PCP Internal Medicine; Visit Provider Surgery Vascular Surgery
DX: I83.11 Varicose veins of right lower extremity with inflammation (principal)
CPT/HCPCS: 36482

== ENCOUNTER → 2023-08-02 07:24 | Outpatient (BNVA) | payer MEDICARE, SELFPAY | PROVIDERS: PCP Internal Medicine; Visit Provider Surgery Vascular Surgery | DX: I83.11 Varicose veins of right lower extremity with inflammation (principal) | CPT/HCPCS: 36482 ==

== ENCOUNTER 2023-08-05 11:55 | Outpatient (REF) | payer MEDICARE, SELFPAY ==
--- NOTE | ~2023-08-05 | US_ITS ---
EXAMINATION: US VENOUS ULTRASOUND WITH DOPPLER LOWER EXTREMITY, RIGHT CLINICAL INFORMATION: Pain in right leg. COMPARISON: None available. TECHNIQUE: Ultrasound of the deep veins is performed from the hip to the calf with compression sonography and color and pulse Doppler assessment. Spectral analysis with color-flow imaging is performed. FINDINGS: There is a acute clot seen in the greater saphenous vein approximately 12 cm from the SFV DJ junction following venous the procedure. There is normal venous compression and respiratory variation and augmented flow. The visualized common femoral vein, superficial femoral vein, profunda femoral vein, popliteal vein, and the trifurcation region shows no evidence of deep venous thrombosis. There is no significant popliteal fossa cyst. US/US venous duplex LE RT IMPRESSION: There is clot visualized within the superficial greater saphenous vein approximately 12 cm from the SFV junction. Rest of the deep veins of right lower extremity are patent.
== END 2023-08-05 11:56 | disposition home or self-care (01) ==
LOC: HO.US 11:55
PROVIDERS: PCP Internal Medicine; Visit Provider Surgery Vascular Surgery
DX: M79.604 Pain in right leg (principal)
CPT/HCPCS: 93971

== ENCOUNTER 2023-08-15 08:40 | Outpatient (AMB) | payer MEDICARE, SELFPAY ==
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
[2023-08-15 08:50] VITALS: BMI 36.8
== END 2023-08-15 09:43 | disposition home or self-care (01) ==
PROVIDERS: PCP Internal Medicine; Visit Provider Surgery Vascular Surgery
DX: I83.12 Varicose veins of left lower extremity with inflammation (principal); I83.11 Varicose veins of right lower extremity with inflammation
CPT/HCPCS: 99213

== ENCOUNTER → 2023-08-15 08:40 | Outpatient (BNVA) | payer MEDICARE, SELFPAY | PROVIDERS: PCP Internal Medicine; Visit Provider Surgery Vascular Surgery | DX: I83.12 Varicose veins of left lower extremity with inflammation (principal); I83.11 Varicose veins of right lower extremity with inflammation | CPT/HCPCS: 99212 ==

== ENCOUNTER 2023-09-13 07:19 | Outpatient (AMB) | payer MEDICARE, SELFPAY ==
[2023-09-13 07:55] VITALS: BMI 36.8
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
== END 2023-09-13 11:20 | disposition home or self-care (01) ==
PROVIDERS: PCP Internal Medicine; Visit Provider Surgery Vascular Surgery
DX: I83.12 Varicose veins of left lower extremity with inflammation (principal)
CPT/HCPCS: 36482

== ENCOUNTER → 2023-09-13 07:19 | Outpatient (BNVA) | payer MEDICARE, SELFPAY | PROVIDERS: PCP Internal Medicine; Visit Provider Surgery Vascular Surgery | DX: I83.12 Varicose veins of left lower extremity with inflammation (principal) | CPT/HCPCS: 36482 ==

== ENCOUNTER 2023-09-16 15:06 | Outpatient (REF) | payer MEDICARE, SELFPAY ==
--- NOTE | ~2023-09-16 | US_ITS ---
EXAMINATION: US VENOUS ULTRASOUND WITH DOPPLER LOWER EXTREMITY, LEFT CLINICAL INFORMATION: Pain left leg. COMPARISON: Ultrasound 08/05/2023. TECHNIQUE: Ultrasound of the deep veins is performed from the hip to the calf with compression sonography and color and pulse Doppler assessment. Spectral analysis with color-flow imaging is performed. FINDINGS: There is normal venous compression and respiratory variation and augmented flow. The visualized common femoral vein, superficial femoral vein, profunda femoral vein, popliteal vein, and the trifurcation region shows no evidence of deep venous thrombosis. There is thrombus visualized in the superficial greater saphenous vein approximately 2.5 cm from the SVC junction. Previously it was [address] junction. However the today's measurement is not optimal due to suboptimal scan and the location. There is no significant popliteal fossa cyst. If the patient's symptoms persist, followup ultrasound in 5 days 7 days might be of value to exclude proximal propagation from a non-visualized calf vein. US/US venous duplex LE LT IMPRESSION: No DVT demonstrated in the left lower extremity. Thrombus within superficial great saphenous vein about 2.5 cm from the junction. Previously it was 12 cm from the junction.
== END 2023-09-16 15:07 | disposition home or self-care (01) ==
LOC: HO.US 15:06
PROVIDERS: PCP Internal Medicine; Visit Provider Surgery Vascular Surgery
DX: M79.605 Pain in left leg (principal)
CPT/HCPCS: 93971

== ENCOUNTER 2023-09-26 09:40 | Outpatient (AMB) | payer MEDICARE, SELFPAY ==
[2023-09-26 09:40] VITALS: BP 132/78; PULSE 70; O2SAT 96; BMI 36.8
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
== END 2023-09-26 10:11 | disposition home or self-care (01) ==
PROVIDERS: PCP Internal Medicine; Visit Provider Surgery Vascular Surgery
DX: I83.11 Varicose veins of right lower extremity with inflammation (principal); I83.12 Varicose veins of left lower extremity with inflammation
CPT/HCPCS: 99213

== ENCOUNTER → 2023-09-26 09:40 | Outpatient (BNVA) | payer MEDICARE, SELFPAY | PROVIDERS: PCP Internal Medicine; Visit Provider Surgery Vascular Surgery | DX: I83.11 Varicose veins of right lower extremity with inflammation (principal); I83.12 Varicose veins of left lower extremity with inflammation | CPT/HCPCS: 99212 ==

== ENCOUNTER 2024-12-07 08:59 | Outpatient (AMB) | payer MEDICARE, SELFPAY ==
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
[2024-12-07 09:10] VITALS: BP 130/82; PULSE 68; RESP 14; TEMP 36.2; O2SAT 98; BMI 37.2
--- OUTSIDE RECORDS SUMMARY | 2024-12-07 09:51 | XMS_ITS | Encounter Summary ---
Author Organization [facility], Address [address] [place] [address] Phone Care Team Providers Care Customs And Immigration Officer Name Role Phone Etta Sauer MD Primary Care Provider [phone] Encounter Details Date Type Department Care Team (Late st Contact Info) Description 10/11/2021 Documentation Only [facility], [address] [place] [address] Irene Dos Santos [address] [place] [id number] Social History Tobacco Use Types Packs/Day Years Used Date Smoking Tobacco: Never Comments Unknown Sex and Gender Information Value Date Recorded Sex Assigned at Not on file Legal Sex Female 1:56 PM EST Gender Identity Not on file Sexual Orientation Not on file documented as of this encounter Plan of Treatment Not on file documented as of this encounter Visit Diagnoses Not on filedocumented in this encounter Care Teams Customs And Immigration Officer Relationship Specialty Start Date End Date Etta Sauer MD [facility] [place] [address] PCP - General Internal Medicine 10/28/20 documented as of this encounter
--- OUTSIDE RECORDS SUMMARY | 2024-12-07 09:51 | XMS_ITS ---
Author Organization [facility] Address [address] [facility] [address] [place] [address] Care Team Providers Care Screening Technician Name Role Phone QUOC Lucero, KHLOE Primary Care Provider Unavail Janel Pina Unavailable [phone] REASON FOR VISIT INTERVAL LR [facility] Encounters Encounter Location Date Provider Diagnosis [facility] [address] [place] [address] 06/12/2024 Janel Bryant Plan Of Treatment Next Appt Details Provider Name:Janel maurice, 07/01/2025 11:00:00 AM, [address] [place] [address], [facility] [address], [place], [address], Progress Notes * FALLON COLÓNOB:1945 (7 0 yo F)Acc No.[id number]:06/12/2024 PROGRESS NOTES Patient:?MANDY COLÓN Appointment Provider:?Janel maurice M.D. :1945???Age:78 Y???Sex:Female D ate:06/12/2024 Address:[address] [place] [address] Pcp:KHLOE KUMARI M.D. Subjective: * Chief Complaints: * ???1. INTERVAL LR [facility]. * Medical History:? Objective: * Vitals:? Assessment: Plan: * Treatment: * Images: Billing Information: * Visit Code:? * Procedure Codes:? * Electronic signature of Binta Bryant MD on 12/07/2024 at 09:51 AM EDT Sign off status: Pending * Appointment Provider:?Janel Bryant M.D. Date:?06/12/2024 Generated for Pat high/Bora/Bonnie on:?12/07/2024 09:51 AM EDT
--- OUTSIDE RECORDS SUMMARY | 2024-12-07 09:52 | XMS_ITS | Clinical Summary ---
Author Organization [facility], Address [address] [place] [address] [place] [address] Phone Care Team Providers Care Storm Sash Maker Name Role Phone Etta Sauer MD Primary Care Provider [phone] Allergies Active Allergy Reactions Criticality Noted Date Comments Hydrochlorothiazide 11/23/2020 Penicillins 11/23/2020 Shellfish-Derived Products Medications aspirin (ST CHANTELLE) 81 MG EC tablet Take 81 mg by mouth 1 (one) time each day Active atenolol (TENORMIN) 50 MG tablet Take 50 mg by mouth 1 (one) time each day Active calcitriol (ROCALTROL) 0.25 MCG capsule Take 0.25 mcg by mouth 1 (one) time each day Active furosemide (LASIX) 40 MG tablet Take 40 mg by mouth 1 (one) time each day Active losartan (COZAAR) 100 MG tablet Take 100 mg by mouth 1 (one) time each day Active Multiple Vitamin (multivitamin) tablet Take 1 tablet by mouth 1 (one) time each day Active rosuvastatin (CRESTOR) 5 MG tablet Take 5 mg by mouth 1 (one) time each day Active Active Problems Problem Noted Date Diagnosed Date Arthritis Edema of lower extremity Hyperlipidemia Essential (primary) hypertension Family History Medical History Relation Comments Prostate cancer Father Pancreatic cancer Mother Breast cancer Sister Relation Status Comments Brother Father Mother Sister Social History Tobacco Use Types Packs/Day Years Used Date Smoking Tobacco: Never Comments Unknown Sex and Gender Information Value Date Recorded Sex Assigned at Not on file Legal Sex Female 1:56 PM EST Gender Identity Not on file Sexual Orientation Not on file Plan of Treatment Health Maintenance Due Date Last Done Comments Pneumococcal Vaccine: 65+ Ye ars (1 of 1 - PCV) 2009 Influenza Vaccine (Season Ended) 2025 Hepatitis B Vaccine Aged Out No longe r eligible based on patient's age to complete this topic Insurance MEDICARE [facility] Care Teams Storm Sash Maker Relationship Specialty Start Date End Date Etta Sauer MD [address] [place] [id number] PCP - General Internal Medicine 10/28/20
--- OUTSIDE RECORDS SUMMARY | 2024-12-07 09:52 | XMS_ITS | Patient Health Record ---
[facility] Organization [facility] Address [address] [facility] [place] [address] Care Team Providers Care Lockstitch Collar Setter Name Role Phone KHLOE KUMARI M.D. Primary Care Provider Unavail able Janel Bryant Unavailable [phone] Allergies Allergen (clinical drug ingredient) Drug/Non Drug Allergy documented on EMR Reaction Allergy Type Onset Date Status hydrochlorothiazide Hydrochlorothiazide Skin Rash D rug Allergy Active Penicillin Unknown Drug Allergy Active Shellfish (FN) Shellfish-derived Products Throat Swelling Drug Allergy Active Reason For Referral No Information Medications Medication SIG (Take, Route, Frequency, Duration) Notes Start Date End Date Status Atenolol 100 MG Oral for 90 Ac tive Multivitamins 1 tab Orally Daily Active Losartan Potassium 100 MG Oral for 30 Active Aspirin EC 81MG 1 ORAL daily for -3 02/04/2012 Active Rosuvastatin Calcium 5 MG Oral for 90 Active Vitamin D 2000 UNIT 1 tablet Orally Once a day Active Furosemide 40 MG 1 tablet Orally PRN Active Social History Tobacco Use: Social History Observation Description Date Details (start date - stop date) Former Smoker NA - NA AUDIT-C (Standard) Question Answer Notes Did you have a drink contain ing alcohol in the past year? Yes How often did you have six o r more drinks on one occasion in the past year? Never (0 point) How many drinks did you have on a typical day when you were drinking in the past year? 1 or 2 drinks (0 point) How often did you have a dri nk containing alcohol in the past year? Monthly or less (1 point) Points 1 Interpretation Negative Tobacco Control (Standard) Question Answer Notes Tobacco use: Former smoker How long has it been since you last smoked? Grea ter than 10 years Problems Problem Type SNOMED Code ICD Code Onset Dates Problem Status W/U Status Risk Notes Problem Frequency of micturition (646039506) Frequency of micturition (R35.0) Active confirmed Problem Postmenopausal atrophic vaginitis (38723890) Postmenopausal atrophic vaginitis (N95.2) Active confirmed Problem Incomplete uterovaginal prolapse (577285605) Incomplete uterovaginal prolapse (N81.2) Active confirmed Problem Herniation of rectum into vagina (275403848) Rectocele (N81.6) Active confirmed Problem Cystocele (758216597) Cystocele, unspecified (N81.10) Active confirmed Problem Screening for malignant neoplasm of breast (391178409) Encounter for screening mammogram for malignant neoplasm of breast (Z12.31) Active confirmed Problem SI - Stress incontinence (48341069) Stress incontinence (female) (male) (N39.3) Active confirmed Problem Malignant neoplasm of [place] (300020731) 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) Active confirmed Major Problem Hyperlipidemia (41338746) Other and unspecified hyperlipidemia (272.4) Active confirmed Major Problem Nonsenile cataract (245769096) Unspecified nonsenile cataract (366.00) Active confirmed Major Problem Benign essential hypertension (8172310) Essential hypertension, benign (401.1) Active confirmed Major Problem Menopausal symptom (55698576) Symptomatic menopausal or female climacteric states (627.2) Active confirmed Major Problem Osteoarthritis (977576263) Osteoarthrosis, unspecified whether generalized or localized, unspecified site (715.90) Active confirmed Major Problem Gynecological examination normal (343204010992773) Routine gynecological examination (V72.31) Active confirmed Problem Exercises teaching, guidance, and counseling (876800496) Exercise counseling (V65.41) Active confirmed Diag Problem Screening for malignant neoplasm of colon (989244082) Special screening for malignant neoplasms, colon (V76.51) Active confirmed Major Vital Signs Temperature 97.4 degrees Fahrenheit 06/26/2024 Blood pressure diastolic 86 mm Hg 06/26/2024 Height 62.5 in 06/26/2024 Blood pressure systolic 122 mm Hg 06/26/2024 Weight 213 lbs 06/26/2024 BMI 38.33 kg/m2 06/26/2024 Encounters Encounter Location Date Provider Diagnosis Total [address] [address] 06/26/2024 Janel Bryant Encounter for gynecological examination (general) (routine) with abnormal findings Z01.411 ; Encounter for screening mammogram for malignant neoplasm of breast Z12.31 and Postmenopausal atrophic vaginitis N95.2 Assessments Encounter Date Diagnosis (ICD Code) Assessment Notes Treatment Notes Treatment Clinical Notes Section Notes 06/26/2024 Encounter for gynecological examination (general) (routine) with abnormal findings (ICD-10 - Z01.411) NO MORE PAP TESTS. 06/26/2024 Encounter for screening mammogram for malignant neoplasm of breast (ICD-10 - Z12.31) REGULAR MAMMOGRAMS AND SBE'S WERE RECOMMENDED. 06/26/2024 Postmenopausal atrophic vaginitis (ICD-10 - N95.2) DISCUSSED FINDINGS, DX AND TX OPTIONS. PAT IS ASYMPTOMATIC. Plan Of Treatment Pending Test Test Name Order Date MAMMOGRAM, SCREENING 05/31/2021 MAMMOGRAM, SCREENING 06/01/2022 MAMMOGRAM, SCREENING 06/11/2023 Urinalysis 04/21/2018 THIN PREP,HPV,RENETTA IF HPV+ (>29YR)(DIAG) 04/27/2019 BONE DENSITY 04/06/2015 BONE DENSITY 06/01/2022 MM Digital Mammo Screening 06/01/2022 MM Digital Mammo Screening 04/29/2020 MM Digital Mammo Screening 05/31/2021 MM Digital Mammo Screening 06/26/2024 MM Digital Mammo Screening 06/11/2023 Next Appt Details Provider Name:Janel maurice, 07/01/2025 11:00:00 AM, [address] [facility] [facility], [address], [place], [address], Insurance Providers Payer Name Payer Address Payer Phone Subscriber Number Group Number Insured Name Patient Relationship to Insured Coverage Start Date Coverage End Date MEDICARE [address] [place] [id number] MANDY COLÓN Self - patient is the insured MEDEX [address] [place] [address] [id number] MANDY COLÓN Self - patient is the insured Medical (General) History Medical History History ICD Code Unspecified osteoarthritis, unspecified site M19.90 Hyperlipidemia, unspecified E78.5 Essential (primary) hypertension I10 Malignant neoplasm of endocrine pancreas C25.4 Menopausal and female climacteric states N95.1 Unspecified infantile and juvenile catar act, 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 3 Postmenopausal atrophic vaginitis N95.2 Incomplete uterovaginal prolapse N81.2 Cystocele, unspecified N81.10 Rectocele N81.6 Mammographic calcification found on diag nostic imaging of breast R92.1 Surgical History Surgery Date(Month/Year) [place] Tonsillectomy Whipple Surgery Left Knee Replacement Right Knee & Ankle Surgery Colonoscopy Right Cataracts Surgery Vascular Surgery Left Leg, Vein Strippin g Hospitalization History Reason Date(Month/Year) See Surgical Hx 2 Vaginal Deliveries
--- OUTSIDE RECORDS SUMMARY | 2024-12-07 09:52 | XMS_ITS | Patient Health Record ---
Author [facility] [place] Address [address] [place] [address] Care Team Providers Care Wind Turbine Erector Name Role Phone Camacho BELL, [facility] Primary Care Provider Anita Damon Unavailable [phone] Allergies Allergen (clinical drug ingredient) Drug/Non Drug Allergy documented on EMR Reaction Allergy Type Onset Date Status shrimp allergenic extract Shrimp (Diagnostic) swollen throat/itchy puffy eyes + ears Drug Allergy Active hydrochlorothiazide Hydrochlorothiazide itchy al l over Drug Allergy Active Penicillin rash Drug Allergy Active Shellfish (FN) Shellfish-derived Products swollen throat/itchy puffy eyes + ears Drug Allergy Active Reason For Referral No Information Medications Medication SIG (Take, Route, Frequency, Duration) Notes Start Date End Date Status Daily Vitamin - tablet Orally Once a day Active Clindamycin HCl 300 MG 2 capsules Orally PRN Dental apts Active Atenolol 100 MG 1 tablet Orally Once a day Active Aspirin 81 MG as directed Orally Once a day Active Rosuvastatin Calcium 5 MG 1 tablet Orally Once a day for 30 day(s) Active Losartan Potassium 100 MG 1 tablet Orally Once a day Active Furosemide PRN Active Vitamin D 50 MCG (1999 UT) as directed Orally Once a day Active Social History Tobacco Use: Social History Observation Description Date Details (start date - stop date) Former Smoker NA - NA Tobacco Use/Smoking Question Answer Notes Are you a: former smoker Additional Findings: Tobacco Non-User Current no n-smoker Alcohol Screen Question Answer Notes Did you have a drink containing alcohol in the p ast year? No Points 0 Interpretation Negative Tobacco use other than smoking: Question Answer Notes Are you an other tobacco user? No Plan Of Treatment No Information Insurance Providers Payer Name Payer Address Payer Phone Subscriber Number Group Number Insured Name Patient Relationship to Insured Coverage Start Date Coverage End Date Medicare National Govt [employer] [address] [place] [address] [id number] Eufemia Jimenez Self - patient is the insured [employer] Blue [employer] [address] [place] [address] [phone] [id number] Eufemia Jimenez Self - patient is the insured Medical (General) History Medical History History ICD Code Anxiety Arthritis Cataracts High blood pressure Poor circulation raynauds disease Measles Mumps Chicken pox Joint implants/screws Bone implants/screws Surgical History Surgery Date(Month/Year) whipple Surgery 09/05/2004 knee replacement 06/2014 vein surgery both legs 06/2020,08/2020
--- OUTSIDE RECORDS SUMMARY | 2024-12-07 09:52 | XMS_ITS ---
Author Organization [facility] Address [address] [address] Care Team Providers Care Victim Witness Administrator Name Role Phone KHLOE KUMARI M.D. Primary Care Provider Unavail able Janel Bryant Unavailable [phone] Allergies Allergen (clinical drug ingredient) Drug/Non Drug Allergy documented on EMR Reaction Allergy Type Onset Date Status hydrochlorothiazide Hydrochlorothiazide Skin Rash D rug Allergy Active Penicillin Unknown Drug Allergy Active Shellfish (FN) Shellfish-derived Products Throat Swelling Drug Allergy Active REASON FOR VISIT INTERVAL BREAST & PELVIC Medications Medication SIG (Take, Route, Frequency, Duration) [...] has it been since you last smoked? Grace ter than 10 years Vital Signs Height 62.5 in 06/26/2024 Weight 213 lbs 06/26/2024 BMI 38.33 kg/m2 06/26/2024 Blood pressure systolic 122 mm Hg 06/26/20 Blood pressure diastolic 86 mm Hg 024 Temperature 97.4 degrees Fahrenheit 06/26/20 Encounters Encounter Location Date Provider Diagnosis [facility] [address] [place] [address] 06/26/2024 Janel Bryant Encounter for gynecological examination [...] OPTIONS. PAT IS ASYMPTOMATIC. Plan Of Treatment Treatment Notes Assessment Notes Encounter for gynecological examination (general) (routine) with abnormal findings NO MORE PAP TESTS. Encounter for screening mamm ogram for malignant neoplasm of breast REGULAR MAMMOGRAMS AND SBE'S WERE RECOMMENDED. Postmenopausal atrophic vaginitis DISCUSSED FINDINGS, DX AND TX OPTIONS. PAT IS ASYMPTOMATIC. Pending Test Test Name Order Date MM Digital Mammo Screening 06/26/2024 Next Appt Details Follow Up: 1 Year, Reason: Provider Name:Janel maurice, 07/01/2025 11:00:00 AM, [address], [address], [place], [address], Progress Notes * FALLON COLÓNOB:1945 ([age] yo F)Acc No.[id number]:06/26/2024 PROGRESS NOTES Patient:?MANDY COLÓN Appointment Provider:?Janel maurice M.D. :1945???Age:78 Y???Sex:Female D ate:06/26/2024 [id number] Pcp:KHLOE KUMARI M.D. Subjective: * Chief Complaints: * ???INTERVAL BREAST & PELVIC * HPI: ???New/Follow-up Patient Consult:? PAT ENTERED MENOPAUSE IN 1995.? SHE IS , SELDOM SEXUALLY ACTIVE.?? 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 SHE HAD LEFT KNEE REPLACEMENT YEARS AGO AND HAD A BENIGN PANCREATIC TUMOR EXCISE IN 2004. HER LAST MAMMOGRAM DONE IN APR 2024 SHOWED BREASTS ARE NOT DENSE AND WAS NORMAL. HER LAST PAP TEST IN 2018 WAS NEGATIVE AND HPV NEGATIVE. HER LAST BMD IN 2022 WAS NORMAL. SHE HAD A COLONOSCOPY DONE IN 2013. PFIZER X 3. * ROS:?general:?no?chest pain.?no?palpitations.?no?headache.?no?cough.?no?shortness of breath.?no?fever.?no?unexplained weight loss.?no?nausea/vomiting.?no?change in bowel movements.?no blood in stool.?no?genitourinary complaints.?no?skin complaints.? * Medical History:? * Vinyl Hanger History:?/ Para?2/2.?Sexual activity?currently sexually active.?Last Pap Smear:?04/27/19 NIL neg, NEG HRHPV, 04/05/14, neg.?Mammogram:?05/02/24 < 50% density, 05/01/23 < 50% density, 04/30/22 < 50% density, 04/28/21 < 50% density, 11/17/20 Unilat Right Breast, 05/02/20 Diagnostic Right - 6 month f/u needed (order already faxed) 04/27/20 < 50% density, , 04/17/19 < 50% density, 04/16/2017 normal, 04/15/17 < 50% density, 04/13/16 < 50% density, 04/09/14, < 25% Glandular, Appointment on 04/11/15.?LMP and menses?1996, [place].? Control:?None.?Menopause: ?Began at age: ?52 ???Colonoscopy?2013.?Bone Density:?05/01/23, 04/16/2018.? * OB History:?Total pregnancies?2.?Total living children?2.?NVD?2.? * Surgical History:?[place] [facility] Tonsillectomy Whipple Surgery Left Knee Replacement Right Knee & Ankle Surgery Colonoscopy Right Cataracts Surgery Vascular Surgery Left Leg, Vein Stripping * Hospitalization/Major Diagno stic Procedure:?2 Vaginal Deliveries See Surgical Hx * Family History:?Mother: dece ased 43 yrs, pancreatic cancer.?Father: 79 yrs, lung cancer, smoker.? Sister: Breast Cancer. * Social History:?Tobacco Use:?Tobacco Control (Standard)?Tobacco use:?Former smoker ?How long has it been since you last smoked??Greater than 10 years ???Sexual History:?Sexual History?Had sex in the past 12 months (vaginal, oral, or anal)?: Yes, with: Men only, Prevention strategies discussed:: Other.?Details of Sexual History?Are you sexually active??Yes ???Drugs/Alcohol:?Drugs?Have you used drugs other than those for medical reasons in the past 12 months??No ???Miscellaneous:?Children: yes, 2. ?Domestic violence: no. ?Exercise: no. ?Home smoke detector use: yes. ?Living with: spouse. ?Marital status: . ?Natural support system: yes. ?Occupation: Retired. ?Sexual abuse: no. ?Sexually active: yes, monogamous relationship. ?Verbal abuse: no. ???Drug/Alcohol:?AUDIT-C (Standard)?Did you have a drink containing alcohol in the past year??Yes ?How often did you have six or more drinks on one occasion in the past year??Never (0 point) ?How many drinks did you have on a typical day when you were drinking in the past year??1 or 2 drinks (0 point) ?How often did you have a drink containing alcohol in the past year??Monthly or less (1 point) ?Points?1 ?Interpretation?Negative * Medications:?TakingAtenolol 100 MG Tablet Oral Losartan Potassium 100 MG Tablet Oral Multivitamins 1 tab Orally Daily Rosuvastatin Calcium 5 MG Tablet Oral Aspirin EC 81MG 30 1 ORAL daily Vitamin D 2000 UNIT Tablet 1 tablet Orally Once a day Furosemide 40 MG Tablet 1 tablet Orally PRN Medication List reviewed and reconciled with the patientTaking Atenolol 100 MG Tablet Oral Taking Losartan Potassium 100 MG Tablet Oral Taking Multivitamins 1 tab Orally Daily Taking Rosuvastatin Calcium 5 MG Tablet Oral Taking Aspirin EC 81MG 30 1 ORAL daily Taking Vitamin D 2000 UNIT Tablet 1 tablet Orally Once a day Taking Furosemide 40 MG Tablet 1 tablet Orally PRN Medication List reviewed and reconciled with the patient * Allergies:?Hydrochlorothiazi de: Skin Rash - AllergyPenicillin: AllergyShellfish-derived Products: Throat Swelling - Allergyno[Allergies Verified] Objective: * Vitals:?Ht: 62.5 in, Wt: 213 lbs, BMI:38.33Index, BP: 122/86 mm Hg, Temp: 97.4 F. * Examination: ???General Examination: ?GENERAL APPEARANCE:?in no acute distress, well developed, well nourished.?BREASTS:?normal, no dimpling, no discharge, no drainage, nontender.?HAND WOVEN CARPET AND RUG MENDER exam: ?EXTERNAL GENITALIA:?Normal female. No lesions, erythema or discharge.?VAGINA:?atrophic changes.?CERVIX:?No cervical motion tenderness, discharge or lesions.?UTERUS:?normal size, shape and consistency, normal mobility, nontender.?ADNEXA:?no masses or tenderness bilaterally.? Assessment: * Assessment: 1.?Encounter for gynecologic al examination (general) (routine) with abnormal findings - Z01.411???2.?Encounter for screening mammogram for malignant neoplasm of breast - Z12.31???3.?Postmenopausal atrophic vaginitis - N95.2??? Plan: * Treatment: 2.?Encounter for screening m ammogram for malignant neoplasm of breast?Imaging: MM Digital Mammo Screening Notes: REGULAR MAMMOGRAMS AND SBE'S WERE RECOMMENDED.?? 3.?Postmenopausal atrophic v aginitis? Notes: DISCUSSED FINDINGS, DX AND TX OPTIONS. PAT IS ASYMPTOMATIC.?? * Procedure Codes:? * Follow Up:?1 Year * Images: Billing Information: * Visit Code:? * Procedure Codes:? * Sign off status: Completed true * Appointment Provider:?Janel Bryant M.D. Date:?06/26/2024 Generated for Pat high/Bora/Rachaelitting on:?12/07/2024 09:51 AM EDT History and Physical Notes * HPI (History of Present Illness) Category Sub-Category Detail Notes Category Not es New/Follow-up Patient Consult PAT ENTERED MENOPAUSE IN 1995. SHE IS , SELDOM SEXUALLY ACTIVE. SHE IS VERY ACTIVE AND DOES LINE DANCING AND TAICHI. 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 SHE HAD LEFT KNEE REPLACEMENT YEARS AGO AND HAD A BENIGN PANCREATIC TUMOR EXCISE IN 2004. HER LAST MAMMOGRAM DONE IN APR 2024 SHOWED BREASTS ARE NOT DENSE AND WAS NORMAL. HER LAST PAP TEST IN 2018 WAS NEGATIVE AND HPV NEGATIVE. HER LAST BMD IN 2022 WAS NORMAL. SHE HAD A COLONOSCOPY DONE IN 2013. PFIZER X 3. Examination Category Sub-Category Detail Notes Category Not es General Examination GENERAL APPEARANCE: in no ac [place] distress, well developed, well nourished BREASTS: normal, no dimpling, no discharge, no drainage, nontender HAND WOVEN CARPET AND RUG MENDER exam CERVIX: No cervical motion tendernes s, discharge or lesions VAGINA: atrophic changes EXTERNAL GENITALIA: Normal female. No le sions, erythema or discharge UTERUS: normal size, shape a nd consistency, normal mobility, nontender ADNEXA: no masses or tendern ess bilaterally
--- OUTSIDE RECORDS SUMMARY | 2024-12-07 09:52 | XMS_ITS ---
Author Organization [facility] Address [address] [address] Care Team Providers Care Divisional Human Resources Director Name Role Phone KHLOE KUMARI M.D. Primary Care Provider Unavail able Janel Bryant Unavailable [phone] Allergies Allergen (clinical drug ingredient) Drug/Non Drug Allergy documented on EMR Reaction Allergy Type Onset Date Status hydrochlorothiazide Hydrochlorothiazide Skin Rash D rug Allergy Active Penicillin Unknown Drug Allergy Active Shellfish (FN) Shellfish-derived Products Throat Swelling Drug Allergy Active REASON FOR VISIT LR MEDICARE PE, Annual SENIOR LOSS CONTROL SPECIALIST Physical 60-85+ Medications Medication SIG (Take, Route, Frequency, Duration) Notes Start Date End Date Status Multivitamins 1 tab Orally Daily Active Rosuvastatin Calcium 5 MG Oral for 90 Active Aspirin EC 81MG 1 ORAL daily for -3 02/04/2012 Active Vitamin D 2000 UNIT 1 tablet Orally Once a day Active Furosemide 40 MG 1 tablet Orally PRN Active Atenolol 100 MG Oral for 90 Ac tive Losartan Potassium 100 MG Oral for 30 Active Social History Tobacco Use: Social History Observation Description Date Details (start date - stop date) Former Smoker NA - NA Tobacco Use/Smoking Question Answer Notes Are you a former smoker How long has it been since you last smoked? > 10 years Alcohol Screen (Audit-C) Question Answer Notes Did you have a drink contain ing alcohol in the past year? Yes How often did you have a dri nk containing alcohol in the past year? Monthly or less (1 point) How many drinks did you have on a typical day when you were drinking in the past year? 1 or 2 drinks (0 point) Points 1 Interpretation Negative Vital Signs Height 62.5 in 06/11/2023 Weight 219 lbs 06/11/2023 BMI 39.41 kg/m2 06/11/2023 Blood pressure systolic 122 mm Hg 06/11/20 Blood pressure diastolic 86 mm Hg 023 Temperature 97.5 degrees Fahrenheit 06/11/20 23 Encounters Encounter Location Date Provider Diagnosis [facility] [address] [place] [address] 06/11/2023 Janel Bryant Encounter for gynecological examination (general) (routine) without abnormal findings Z01.419 and Encounter for screening mammogram for malignant neoplasm of breast Z12.31 Assessments Encounter Date Diagnosis (ICD Code) Assessment Notes Treatment Notes Treatment Clinical Notes Section Notes 06/11/2023 Encounter for gynecological examination (general) (routine) without abnormal findings (ICD-10 - Z01.419) NO MORE PAP TESTS. RECOMMENDED EITHER ANOTHER COLONOSCOPY NEXT YEAR OR COLOGUARD TESTING. IF SHE CHOOSES COLONOSCOPY, SHE WILL SEE EITHER DR LINK OR DR BRIAN. DISCUSSED HER NORMAL BMD RESULTS AND CONGRATULATED THE PAT FOR HAVING STRONG BONES. SHE SAYS SHE DRINKS A LOT OF LOW FAT MILK DAILY AND REMAINS ACTIVE. 06/11/2023 Encounter for screening mammogram for malignant neoplasm of breast (ICD-10 - Z12.31) REGULAR MAMMOGRAMS AND SBE'S WERE RECOMMENDED. Plan Of Treatment Treatment Notes Assessment Notes Encounter for gynecological examination (general) (routine) without abnormal findings NO MORE PAP TESTS. RECOMMENDED EITHER ANOTHER COLONOSCOPY NEXT YEAR OR COLOGUARD TESTING. IF SHE CHOOSES COLONOSCOPY, SHE WILL SEE EITHER DR LINK OR DR BRIAN. DISCUSSED HER NORMAL BMD RESULTS AND CONGRATULATED THE PAT FOR HAVING STRONG BONES. SHE SAYS SHE DRINKS A LOT OF LOW FAT MILK DAILY AND REMAINS ACTIVE. Encounter for screening mamm ogram for malignant neoplasm of breast REGULAR MAMMOGRAMS AND SBE'S WERE RECOMMENDED. Pending Test Test Name Order Date MAMMOGRAM, SCREENING 06/11/2023 MM Digital Mammo Screening 06/11/2023 Next Appt Details Follow Up: 1 Year, Reason: Provider Name:Janel Ramoskeshawn josafat, 07/01/2025 11:00:00 AM, [address], [place], [address], Progress Notes * FALLON COLÓNOB:1945 ([age] yo F)Acc No.[id number]:06/11/2023 PROGRESS NOTES Patient:?MANDY COLÓN Appointment Provider:?Janel maurice M.D. :1945???Age:77 Y???Sex:Female D ate:06/11/2023 [address] [facility] Pcp:KHLOE KUMARI M.D. Subjective: * Chief Complaints: * ???LR MEDICARE PEAnnual SENIOR LOSS CONTROL SPECIALIST Physical 60-85+ * HPI: ???New/Follow-up Patient Consult:? PAT ENTERED MENOPAUSE IN 1995. HER HAD CANCER OF THE VOCAL CORDS AND CONTINUES TO BE FOLLOWED AT [facility]. THEY ARE NOT SEXUALLY ACTIVE. 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 SHE HAD VEIN STRIPPING DONE IN 2019. ?SHE IS ACTIVE AND DOES LINE DANCING, MACEY-CHI AND BALANCE EXERCISES REGULARLY. ?HER LAST MAMMOGRAM DONE IN APR 2023 SHOWED BREASTS ARE NOT DENSE AND WAS NORMAL. ?HER LAST PAP TEST IN 2018 WAS NEGATIVE AND HPV NEGATIVE. ?HER LAST BMD IN 2022 WAS NORMAL. ?SHE HAD A COLONOSCOPY DONE IN 2013. ?PFIZER X 3. ???Annual:? Patient presents for annual exam, ages 60-85, postmenopausal. ?General Health Maintenance:?Current breast complaints:?no breast pain, mass, discharge, or skin changes ?Urinary problems:?patient reports no urinary health problems or bowel health problems ?Calcium intake:?takes adequate calcium via diet and supplementation ?Significant SENIOR LOSS CONTROL SPECIALIST problems:?no significant catering convention services manager symptoms or problems * ROS:?general:?no?chest pain.?no?palpitations.?no?headache.?no?cough.?no?shortness of breath.?no?fever.?no?unexplained weight loss.?no?nausea/vomiting.?no?change in bowel movements.?no blood in stool.?no?genitourinary complaints.?no?skin complaints.? * Medical History:? 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 Control:?None.?Menopause: ?Began at age: ?52 ???Colonoscopy?2013.?Bone Density:?05/01/23, 04/16/2018.? * OB History:?Total pregnancies?2.?Total living children?2.?NVD?2.? * Surgical History:?[place] Abdiel th Tonsillectomy Whipple Surgery Left Knee Replacement Right Knee & Ankle Surgery Colonoscopy Right Cataracts Surgery Vascular Surgery Left Leg, Vein Stripping * Hospitalization/Major Diagno stic Procedure:?2 Vaginal Deliveries See Surgical Hx * Family History:?Mother: dece ased 43 yrs, pancreatic cancer.?Father: 79 yrs, lung cancer, smoker.? Sister: Breast Cancer. * Social History:?Tobacco Use:?Tobacco Use/Smoking?Are you a?former smoker ?How long has it been since you last smoked??> 10 years ???Sexual History:?Sexual History?Had sex in the past 12 months (vaginal, oral, or anal)?: Yes, with: Men only, Prevention strategies discussed:: Other.?Details of Sexual History?Are you sexually active??Yes ???Drugs/Alcohol:?Drugs?Have you used drugs other than those for medical reasons in the past 12 months??No ?Alcohol Screen (Audit-C)?Did you have a drink containing alcohol in the past year??Yes ?How often did you have a drink containing alcohol in the past year??Monthly or less (1 point) ?How many drinks did you have on a typical day when you were drinking in the past year??1 or 2 drinks (0 point) ?Points?1 ?Interpretation?Negative ???Miscellaneous:?Children: yes, 2. ?no Domestic violence. ?no Exercise. ?Home smoke detector use: yes. ?Living with: spouse. ?Marital status: . ?Natural support system: yes. ?Occupation: Works full-time. ?no Sexual abuse. ?Sexually active: yes, monogamous relationship. ?no Verbal abuse. * Medications:?TakingAtenolol 100 MG Tablet Oral Losartan Potassium 100 MG Tablet Oral Multivitamins 1 tab Orally DailyRosuvastatin Calcium 5 MG Tablet Oral Aspirin EC 81MG 30 1 ORAL dailyVitamin D 2000 UNIT Tablet 1 tablet Orally Once a dayFurosemide 40 MG Tablet 1 tablet Orally PRNMedication List reviewed and reconciled with the patientTaking Atenolol 100 MG Tablet Oral Taking Losartan Potassium 100 MG Tablet Oral Taking Multivitamins 1 tab Orally DailyTaking Rosuvastatin Calcium 5 MG Tablet Oral Taking Aspirin EC 81MG 30 1 ORAL dailyTaking Vitamin D 2000 UNIT Tablet 1 tablet Orally Once a dayTaking Furosemide 40 MG Tablet 1 tablet Orally PRNMedication List reviewed and reconciled with the patient * Allergies:?Hydrochlorothiazi de: Skin Rash - AllergyPenicillin: AllergyShellfish-derived Products: Throat Swelling - Allergyno[Allergies Verified] Objective: * Vitals:?Ht: 62.5 in, Wt:219 lbs, BMI:39.41 Index, BP:122/86 mm Hg, Temp:97.5 F. * Examination: ???General Exam: ?CONSTITUTIONAL:?General Appearance:?alert, in no acute distress, normal, well nourished ?NECK/THYROID:?Inspection/Palpation:?normal ?Thyroid:?normal size and shape ?RESPIRATORY:?Auscultation: clear to auscultation bilaterally, Respiratory Effort: normal.?CARDIOVASCULAR:?Auscultation: regular rate and rhythm.?BREAST, Right:?Inspection/Palpation:?no discharge, no masses present, no nipple retraction, no skin changes, no skin dimpling, no tenderness, no lymphadenopathy, no axillary mass, no axillary tenderness ?BREAST, Left:?Inspection/Palpation:?no discharge, no masses present, no nipple retraction, no skin changes, no skin dimpling, no tenderness, no lymphadenopathy, no axillary mass, no axillary tenderness ?GASTROINTESTINAL:?Abdomen:?no masses, nontender, nondistended ?Liver and Spleen:?normal ?Hernias:?no hernias present, no inguinal adenopathy ?MUSCULOSKELETAL:?Inspection/Palpation:?no clubbing, cyanosis, or edema ?SKIN:?Skin:?normal ?NEURO/PSYCH:?Orientation:?time , place, person ?Mood/Affect:?normal?Genitourinary: ?EXTERNAL GENITALIA:?External Genitalia:?normal, no lesions ?VAGINA:?Vagina:?normal appearance, no abnormal discharge, no lesions ?BLADDER:?Bladder:?no mass, nontender ?URETHRA:?Urethra:?no erythema or lesions present ?CERVIX:?Cervix:?no lesions, nontender ?UTERUS:?Uterus:?nontender, normal contour, normal mobility, normal size ?ADNEXA:?Adnexa:?no masses, no tenderness ?ANUS AND PERINEUM:?Anus/Perineum:?visually normal??? Assessment: * Assessment: 1.?Encounter for gynecologic al examination (general) (routine) without abnormal findings - Z01.419 (Primary)?2.?Encounter for screening mammogram for malignant neoplasm of breast - Z12.31? Plan: * Treatment: 2.?Encounter for screening m ammogram for malignant neoplasm of breast?Imaging: MM Digital Mammo Screening Notes: REGULAR MAMMOGRAMS AND SBE'S WERE RECOMMENDED.?? * Imaging:? * ?Imaging: MAMMOGRAM, SCR EENING * Procedure Codes:? * Preventive Medicine:? ??YOUR PREVENTIVE WELLNESS PLAN:?Osteoporosis prevention?Calcium, D, strength training.?Breast Cancer Screening (Mammogram):?annually.?Cervical Cancer Screening (Pap Smear):?q 3 years with HPV screen.?Colorectal Cancer Screening:?q 10 years.? * Follow Up:?1 Year * Images: Billing Information: * Visit Code:? 00897 Preventive Care Est Pt. Age 65 and over. * Procedure Codes:? * Sign off status: Completed true * Appointment Provider:?Janel Bryant M.D. Date:?06/11/2023 Generated for aPt high/Bora/eTransmitting on:?12/07/2024 09:52 AM EDT History and Physical Notes * HPI (History of Present Illness) Category Sub-Category Detail Notes Category Not es New/Follow-up Patient Consult PAT ENTERED MENOPAUSE IN 1995. HER HAD CANCER OF THE VOCAL CORDS AND CONTINUES TO BE FOLLOWED AT [facility]. THEY ARE NOT SEXUALLY ACTIVE. 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 SHE HAD VEIN STRIPPING DONE IN 2019. SHE IS ACTIVE AND DOES LINE DANCING, MACEY-CHI AND BALANCE EXERCISES REGULARLY. HER LAST MAMMOGRAM DONE IN APR 2023 SHOWED BREASTS ARE NOT DENSE AND WAS NORMAL. HER LAST PAP TEST IN 2018 WAS NEGATIVE AND HPV NEGATIVE. HER LAST BMD IN 2022 WAS NORMAL. SHE HAD A COLONOSCOPY DONE IN 2013. [place] X 3. Annual General Health Maintenance: Current breast complaints:: no breast pain, mass, discharge, or skin changes Urinary problems:: patient r eports no urinary health problems or bowel health problems Calcium intake:: takes adequ ate calcium via diet and supplementation Significant SENIOR LOSS CONTROL SPECIALIST problems:: n o significant catering convention services manager symptoms or problems Examination Category Sub-Category Detail Notes Category Not es General Exam CONSTITUTIONAL: General Appearan ce:: alert, in no acute distress, normal, well nourished NECK/THYROID: Inspection/Palpation:: normal Thyroid:: normal size and shape RESPIRATORY: Auscultation: clear to auscultation bilaterally, Respiratory Effort: normal CARDIOVASCULAR: Auscultation: regula r rate and rhythm GASTROINTESTINAL: Abdomen:: no masses, nontender , nondistended Liver and Spleen:: normal Hernias:: no hernias present, no inguina l adenopathy MUSCULOSKELETAL: Inspection/Palpation:: no clubb ing, cyanosis, or edema SKIN: Skin:: normal NEURO/PSYCH: Orientation:: time , place, pers on Mood/Affect:: normal BREAST, Right: Inspection/Palpation :: no discharge, no masses present, no nipple retraction, no skin changes, no skin dimpling, no tenderness, no lymphadenopathy, no axillary mass, no axillary tenderness BREAST, Left: Inspection/Palpation :: no discharge, no masses present, no nipple retraction, no skin changes, no skin dimpling, no tenderness, no lymphadenopathy, no axillary mass, no axillary tenderness Genitourinary EXTERNAL GENITALIA: External Genitalia:: nor mal, no lesions VAGINA: Vagina:: normal appearance, no a bnormal discharge, no lesions BLADDER: Bladder:: no mass, nontender URETHRA: Urethra:: no erythema or lesions present CERVIX: Cervix:: no lesions, nontender UTERUS: Uterus:: nontender, normal conto ur, normal mobility, normal size ADNEXA: Adnexa:: no masses, no tendernes s ANUS AND PERINEUM: Anus/Perineum:: visually norm al
== END 2024-12-07 09:39 | disposition home or self-care (01) ==
LOC: HO.HMCSH 08:59
PROVIDERS: PCP Internal Medicine; Visit Provider Physician Assistant Medical
DX: I10 Essential (primary) hypertension (principal); E78.5 Hyperlipidemia, unspecified; I87.2 Venous insufficiency (chronic) (peripheral)

== ENCOUNTER → 2024-12-07 08:59 | Outpatient (BNVA) | payer MEDICARE, SELFPAY | PROVIDERS: PCP Internal Medicine; Visit Provider Physician Assistant Medical | DX: I10 Essential (primary) hypertension (principal); E78.5 Hyperlipidemia, unspecified; I87.2 Venous insufficiency (chronic) (peripheral); R60.0 Localized edema | CPT/HCPCS: 96127; 99212 ==

== ENCOUNTER 2024-12-14 07:59 | Outpatient (REF) | payer MEDICARE, SELFPAY ==
--- OUTSIDE RECORDS SUMMARY | 2024-12-14 08:05 | XMS_ITS | Clinical Summary ---
Author Organization [facility], Address [address] [place] [address] [place] [address] Phone Care Team Providers Care Pharmacy Consultant Name Role Phone Etta Sauer MD Primary Care Provider [phone] Allergies Active Allergy Reactions Criticality Noted Date [...] Due Date Last Done Comments Pneumococcal Vaccine: 50+ Ye ars (1 of 1 - PCV) 1994 Influenza Vaccine (Season Ended) 2025 Hepatitis B Vaccine Aged Out No longe r eligible based on patient's age to complete this topic Insurance Medicare [facility] Care Teams Pharmacy Consultant Relationship Specialty Start Date End Date Etta Sauer MD [address] [place] [id number] PCP - General Internal Medicine 10/28/20
--- OUTSIDE RECORDS SUMMARY | 2024-12-14 08:05 | XMS_ITS | Encounter Summary ---
Author Organization [facility], Address [address] [place] [address] Phone Care Team Providers Care Grain Elevator Clerk Name Role Phone Etta Sauer MD Primary Care Provider Encounter Details Date Type Department Care Team (Late st Contact Info) Description 10/11/2021 Documentation Only [facility], [address] [place] [address] Irene Dos Santos [address] [place] [phone] Social History Tobacco Use Types Packs/Day Years [...] on filedocumented in this encounter Care Teams Grain Elevator Clerk Relationship Specialty Start Date End Date Etta Sauer MD [facility] [place] [address] PCP - General Internal Medicine 10/28/20 documented as of this encounter
--- OUTSIDE RECORDS SUMMARY | 2024-12-14 08:05 | XMS_ITS | Patient Health Record ---
Author Organization [facility] [place] Address [address] [facility] [place] [address] Care Team Providers Care Press Officer Name Role Phone Camacho BELL, [facility] Primary Care Provider Anita Damon Unavailable [phone] Allergies Allergen (clinical drug ingredient) Drug/Non Drug [...] Date Coverage End Date Medicare National Govt [employer] [address] [place] [address] [id number] Eufemia Jimenez Self - patient is the insured [employer] [address] [place] [address] [id number] Eufemia Jimenez Self - patient is the insured Medical (General) History Medical History History ICD Code Anxiety Arthritis Cataracts High blood pressure Poor circulation raynauds disease Measles Mumps Chicken pox Joint implants/screws Bone implants/screws Surgical History Surgery Date(Month/Year) whipple Surgery 09/05/2004 knee replacement 06/2014 vein surgery both legs 06/2020,08/2020
--- OUTSIDE RECORDS SUMMARY | 2024-12-14 08:05 | XMS_ITS ---
Author Organization [facility] Address [address] [facility] [address] [place] [address] Care Team Providers Care Pairer Inspector Name Role Phone QUOC [place], KHLOE Primary Care Provider Unavail Janel Pina Unavailable [phone] REASON FOR VISIT INTERVAL LR MC Encounters Encounter Location Date Provider Diagnosis [facility] [address] [place] [address] 06/12/2024 Janel Bryant Plan Of Treatment Next Appt Details Provider Name:Janel maurice, 07/01/2025 11:00:00 AM, [address] [place] [address], [facility] [address], [place], [address], Progress Notes * FALLON COLÓNOB:1945 (7 0 yo F)Acc No.[id number]:06/12/2024 PROGRESS NOTES Patient:?MANDY COLÓN Appointment Provider:?Janel maurice M.D. :1945???Age:78 Y???Sex:Female D ate:06/12/2024 Address:[address] [place] [address] Pcp:KHLOE KUMARI M.D. Subjective: * Chief Complaints: * ???1. INTERVAL LR MC. * Medical History:? Objective: * Vitals:? Assessment: Plan: * Treatment: * Images: Billing Information: * Visit Code:? * Procedure Codes:? * Electronic signature of Binta Bryant MD on 12/14/2024 at 08:04 AM EDT Sign off status: Pending * Appointment Provider:?Janel Bryant M.D. Date:?06/12/2024 Generated for Pat high/Bora/Bonnie on:?12/14/2024 08:04 AM EDT
--- OUTSIDE RECORDS SUMMARY | 2024-12-14 08:05 | XMS_ITS ---
Author Organization [facility] Address [address] [address] Care Team Providers Care Development Expert Name Role Phone KHLOE KUMARI M.D. Primary Care Provider Unavail able Janel Bryant Unavailable [phone] Allergies Allergen (clinical drug ingredient) Drug/Non Drug [...] Grace ter than 10 years Vital Signs Temperature 97.4 degrees Fahrenheit 10/25/20 24 Blood pressure systolic 122 mm Hg 06/26/20 24 Blood pressure diastolic 86 mm Hg 024 Height 62.5 in 06/26/2024 Weight 213 lbs 06/26/2024 BMI 38.33 kg/m2 06/26/2024 Encounters Encounter Location Date Provider Diagnosis [facility] [address] [place] [address] 06/26/2024 Janel Bryant Encounter for gynecological examination [...] Provider Name:Janel maurice, 07/01/2025 11:00:00 AM, [address], [place], [address], Progress Notes * FALLON COLÓNOB:1945 ([age] yo F)Acc No.[id number]:06/26/2024 PROGRESS NOTES Patient:?MANDY COLÓN Appointment Provider:?Janel maurice M.D. :1945???Age:78 Y???Sex:Female D ate:06/26/2024 [address] [facility] Pcp:KHLOE KUMARI M.D. Subjective: * Chief Complaints: [...] stool.?no?genitourinary complaints.?no?skin complaints.? * Medical History:? * Him Clerk History:?/ Para?2/2.?Sexual activity?currently sexually active.?Last Pap Smear:?04/27/19 [...] 25% Glandular, Appointment on 04/11/15.?LMP and menses?1996, [place].? Control:?None.?Menopause: ?Began at age: ?52 ???Colonoscopy?2013.?Bone Density:?05/01/23, 04/16/2018.? * OB History:?Total pregnancies?2.?Total living children?2.?NVD?2.? * Surgical History:?[place] Abdiel th Tonsillectomy Whipple Surgery Left Knee [...] nourished.?BREASTS:?normal, no dimpling, no discharge, no drainage, nontender.?DATA CAPTURE CLERK exam: ?EXTERNAL GENITALIA:?Normal female. No lesions, erythema [...] Bryant M.D. Date:?06/26/2024 Generated for Pat high/Bora/Rachaelitting on:?12/14/2024 08:04 AM EDT History and Physical Notes * [...] General Examination GENERAL APPEARANCE: in no ac louie distress, well developed, well nourished BREASTS: normal, no dimpling, no discharge, no drainage, nontender DATA CAPTURE CLERK exam CERVIX: No cervical motion tendernes s, discharge or lesions VAGINA: atrophic changes EXTERNAL GENITALIA: Normal female. No le sions, erythema or discharge UTERUS: normal size, shape a nd consistency, normal mobility, nontender ADNEXA: no masses or tendern ess bilaterally
--- OUTSIDE RECORDS SUMMARY | 2024-12-14 08:05 | XMS_ITS | Patient Health Record ---
Author Organization [facility] Address [address] [place] [address] Care Team Providers Care Insurance Job Titles Name Role Phone KHLOE KUMARI M.D. Primary Care Provider Unavail able Janel Bryant Unavailable [phone] Allergies Allergen (clinical drug ingredient) Drug/Non Drug [...] Status Risk Notes Problem Frequency of micturition (975460461) Frequency of micturition (R35.0) Active confirmed Problem Postmenopausal atrophic vaginitis (82268628) Postmenopausal atrophic vaginitis (N95.2) Active confirmed Problem Incomplete uterovaginal prolapse (995956981) Incomplete uterovaginal prolapse (N81.2) Active confirmed Problem Herniation of rectum into vagina (120352650) Rectocele (N81.6) Active confirmed Problem Cystocele (600662683) Cystocele, unspecified (N81.10) Active confirmed Problem Screening for malignant neoplasm of breast (482043704) Encounter for screening mammogram for malignant neoplasm of breast (Z12.31) Active confirmed Problem SI - Stress incontinence (31385686) Stress incontinence (female) (male) (N39.3) Active confirmed Problem Malignant neoplasm of [place] (113464084) 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) Active confirmed Major Problem Hyperlipidemia (74863909) Other and unspecified hyperlipidemia (272.4) Active confirmed Major Problem Nonsenile cataract (618893783) Unspecified nonsenile cataract (366.00) Active confirmed Major Problem Benign essential hypertension (1930024) Essential hypertension, benign (401.1) Active confirmed Major Problem Menopausal symptom (15958741) Symptomatic menopausal or female climacteric states (627.2) Active confirmed Major Problem Osteoarthritis (806192724) Osteoarthrosis, unspecified whether generalized or localized, unspecified site (715.90) Active confirmed Major Problem Gynecological examination normal (137148930086396) Routine gynecological examination (V72.31) Active confirmed Problem Exercises teaching, guidance, and counseling (324099183) Exercise counseling (V65.41) Active confirmed Diag Problem Screening for malignant neoplasm of colon (970297834) Special screening for malignant neoplasms, colon (V76.51) Active confirmed Major Vital Signs Temperature 97.4 degrees Fahrenheit 06/26/2024 Blood pressure diastolic 86 mm Hg 06/26/2024 Height 62.5 in 06/26/2024 Blood pressure systolic 122 mm Hg 06/26/2024 Weight 213 lbs 06/26/2024 BMI 38.33 kg/m2 06/26/2024 Encounters Encounter Location Date Provider Diagnosis Total [address] [address] 06/26/2024 Janel Bryant Encounter for gynecological examination [...] Provider Name:Janel maurice, 07/01/2025 11:00:00 AM, [address], [address], [place], [address], Insurance Providers Payer Name Payer Address Payer Phone Subscriber Number Group Number Insured Name Patient Relationship to Insured Coverage Start Date Coverage End Date MEDICARE [address] [place] [id number] MANDY COLÓN Self - patient is the insured MEDEX [address] [place] [address] [id number] MANDY COLÓN Self - patient [...] of breast R92.1 Surgical History Surgery Date(Month/Year) Kiln Teeth Tonsillectomy Whipple Surgery Left Knee Replacement Right Knee & Ankle Surgery Colonoscopy Right Cataracts Surgery Vascular Surgery Left Leg, Vein Strippin g Hospitalization History Reason Date(Month/Year) See Surgical Hx 2 Vaginal Deliveries
[2024-12-14 10:50] LABS: MANUAL DIFF FLAG NO
[2024-12-14 10:54] LABS: Basophils Percent Auto 0.4 % (0-2); Eosinophils Absolute Auto 0.1 X10*3/uL (0.0-0.4); Eosinophils Percent Auto 1.3 % (0-4); Imm Gran Abs Auto 0.02 X10*3/uL (0.00-0.03); Imm Gran Pct Auto 0.3 % (0.0-0.4); Lymphocytes Absolute Auto 1.8 X10*3/uL (1.2-4.9); Lymphocytes Percent Auto 26.8 % (20-40); Mean Corpuscular HGB Conc 32.5 g/dl (31.0-35.0); Mean Corpuscular Volume 95.2 fL (80.0-98.0); Mean Platelet Volume 11.3 fL (9.4-12.3); Monocytes Absolute Auto 0.6 X10*3/uL (0.1-1.2); Monocytes Percent Auto 9.6 % (2-11); NRBC Pct Auto 0.3 /100WBC (0.0-0.2); Neutrophils Absolute Auto 4.1 x10*3/uL (2.0-8.3); Neutrophils Percent Auto 61.6 % (45-73); Platelet Count 196 X10*3/uL (160-400); Red Cell Distribution Width 12.7 % (11.0-16.0); White Blood Count 6.7 X10*3/uL (4.8-10.8)
[2024-12-14 11:04] LABS: Estimated Average Glucose 114 mg/dL; Hemoglobin A1C 131.6253 umol/L; Hemoglobin A1c % 5.6 % (<6.0); Total Hemoglobin (HGBA1C) 3448.9375 umol/L
[2024-12-14 11:33] LABS: Erythrocyte Sedimentation Rate 34 MM/HR (0-20)
[2024-12-14 11:47] LABS: Alanine Aminotransferase 37 U/L (0-31); Albumin Level 4.2 g/dL (3.5-5.0); Alkaline Phosphatase 82 U/L (39-117); Anion Gap 11 (12-20); Aspartate Amino Transferase 29 U/L (5-31); Bilirubin Direct 0.1 mg/dL (0.0-0.5); Bilirubin Total 0.3 mg/dL (0.0-1.0); Blood Urea Nitrogen 14 mg/dL (9-16); C Reactive Protein 0.16 mg/dL (< or = 0.50); Calcium 9.5 mg/dL (8.4-10.2); Carbon Dioxide 28 mmol/L (22-29); Chloride 108 mmol/L (96-108); Cholesterol 138 mg/dL (<200); Estimated Glomerular Filt Rate > 60; Glucose Fasting 104 mg/dL (60-99); HDL Cholesterol 48 mg/dL (>40); LDL Cholesterol Calculated 71 mg/dL (<100); Magnesium 2.1 mg/dL (1.6-2.6); Potassium 4.8 mmol/L (3.3-5.1); Sodium 142 mmol/L (135-145); Total Protein 7.1 g/dL (6.5-8.0); Triglycerides 99 mg/dL (<150)
[2024-12-14 11:50] LABS: TSH reflex Free T4 5.06 uIU/mL (0.32-4.0); Vitamin D 25-OH Total 16.1 ng/mL (>30)
[2024-12-14 11:56] LABS: Folate 15.9 ng/mL (> or = 4.0); Vitamin B12 391 pg/mL (200-900)
[2024-12-14 12:46] LABS: Free T4 (Free Thyroxine) 0.86 ng/dL (0.71-1.85)
== END 2024-12-14 08:00 | disposition home or self-care (01) ==
LOC: HO.HMGCLDS 07:59
PROVIDERS: Visit Provider Physician Assistant Medical
DX: Z00.00 Encounter for general adult medical examination without abnormal findings (principal); Z13.1 Encounter for screening for diabetes mellitus; Z13.0 Encounter for screening for diseases of the blood and blood-forming organs and certain disorders involving the immune mechanism; Z13.29 Encounter for screening for other suspected endocrine disorder; Z13.220 Encounter for screening for lipoid disorders
CPT/HCPCS: 36415; 80053; 80061; 80076; 82248; 82306; 82607; 82746; 83036; 83735; 84439; 84443; 85025; 85652; 86140

== ENCOUNTER 2024-12-21 09:53 | Outpatient (AMB) | payer MEDICARE, SELFPAY ==
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
[2024-12-21 10:05] VITALS: BP 130/76; PULSE 60; RESP 14; TEMP 36.6; O2SAT 98; BMI 36.7
== END 2024-12-21 10:58 | disposition home or self-care (01) ==
LOC: HO.HMCSH 09:53
PROVIDERS: PCP Internal Medicine; Visit Provider Physician Assistant Medical
DX: E03.9 Hypothyroidism, unspecified (principal); R73.03 Prediabetes; E55.9 Vitamin D deficiency, unspecified; R74.01 Elevation of levels of liver transaminase levels; E73.9 Lactose intolerance, unspecified; R70.0 Elevated erythrocyte sedimentation rate

== ENCOUNTER → 2024-12-21 09:53 | Outpatient (BNVA) | payer MEDICARE, SELFPAY | PROVIDERS: PCP Internal Medicine; Visit Provider Physician Assistant Medical | DX: E03.9 Hypothyroidism, unspecified (principal); R73.03 Prediabetes; E55.9 Vitamin D deficiency, unspecified; R74.01 Elevation of levels of liver transaminase levels; E73.9 Lactose intolerance, unspecified | CPT/HCPCS: 96127; 99212 ==

== ENCOUNTER 2025-01-28 07:03 | Outpatient (REF) | payer MEDICARE, SELFPAY ==
[2025-01-28 11:26] LABS: TSH reflex Free T4 6.68 uIU/mL (0.32-4.0)
[2025-01-28 12:04] LABS: Free T4 (Free Thyroxine) 0.85 ng/dL (0.71-1.85)
== END 2025-01-28 07:04 | disposition home or self-care (01) ==
LOC: HO.HMGCLDS 07:03
PROVIDERS: Visit Provider Physician Assistant Medical
DX: E03.9 Hypothyroidism, unspecified (principal)
CPT/HCPCS: 36415; 84439; 84443

== ENCOUNTER 2025-02-03 09:33 | Outpatient (AMB) | payer MEDICARE, SELFPAY ==
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
[2025-02-03 09:47] VITALS: BP 148/61; PULSE 60; RESP 16; TEMP 36.4; O2SAT 99; BMI 37.0
--- OUTSIDE RECORDS SUMMARY | 2025-02-03 09:57 | XMS_ITS ---
Author Organization [employer] [facility] Address [address] [place] [address] Care Team Providers Care Lead Web Developer Name Role Phone QUOC Lucero, KHLOE Primary Care Provider Unavail Janel Pina Unavailable [phone] REASON FOR VISIT INTERVAL LR [facility] Encounters Encounter Location Date Provider Diagnosis [facility] [employer] [address] [place] [address] 06/12/2024 Janel Bryant Plan Of Treatment Next Appt Details Provider Name:Janel maurice, 07/01/2025 11:00:00 AM, [address] [place] [address], [facility] [address], [place], [address], Progress Notes * FALLON COLÓNOB:1945 ([age] yo F)Acc No.[id number]:06/12/2024 PROGRESS NOTES Patient:?MANDY COLÓN Appointment Provider:?Janel maurice M.D. :1945???Age:78 Y???Sex:Female D ate:06/12/2024 Address:[address] [place] [address] Pcp:KHLOE KUMARI M.D. Subjective: * Chief Complaints: * ???1. INTERVAL [facility]. * Medical History:? Objective: * Vitals:? Assessment: Plan: * Treatment: * Images: Billing Information: * Visit Code:? * Procedure Codes:? * Electronic signature of Binta Bryant MD on 02/03/2025 at 09:57 AM EDT Sign off status: Pending * Appointment Provider:?Janel Bryant M.D. Date:?06/12/2024 Generated for Pat high/Bora/Bonnie on:?02/03/2025 09:57 AM EDT
== END 2025-02-03 10:18 | disposition home or self-care (01) ==
LOC: HO.HMCSH 09:33
PROVIDERS: PCP Internal Medicine; Visit Provider Physician Assistant Medical
DX: I10 Essential (primary) hypertension (principal); I87.2 Venous insufficiency (chronic) (peripheral); E03.9 Hypothyroidism, unspecified; I25.10 Atherosclerotic heart disease of native coronary artery without angina pectoris; I83.11 Varicose veins of right lower extremity with inflammation; R73.03 Prediabetes; E55.9 Vitamin D deficiency, unspecified

== ENCOUNTER → 2025-02-03 09:33 | Outpatient (BNVA) | payer MEDICARE, SELFPAY | PROVIDERS: PCP Internal Medicine; Visit Provider Physician Assistant Medical | DX: I10 Essential (primary) hypertension (principal); E03.8 Other specified hypothyroidism; F41.9 Anxiety disorder, unspecified; L65.9 Nonscarring hair loss, unspecified; I25.10 Atherosclerotic heart disease of native coronary artery without angina pectoris; I83.11 Varicose veins of right lower extremity with inflammation; R73.03 Prediabetes; E55.9 Vitamin D deficiency, unspecified; I65.29 Occlusion and stenosis of unspecified carotid artery; I71.40 Abdominal aortic aneurysm, without rupture, unspecified | CPT/HCPCS: 96127; 99212 ==

== ENCOUNTER 2025-02-19 07:48 | Outpatient (AMB) | payer MEDICARE, SELFPAY ==
--- OUTSIDE RECORDS SUMMARY | 2024-06-12 05:10 | XMS_ITS ---
Author Organization Total [email or web address] Address [address] [facility] [address] [place] [address] Care Team Providers Care Automobile Rental Clerk Name Role Phone QUOC Lucero, KHLOE Primary Care Provider Unavail Janel Pina Unavailable [phone] REASON FOR VISIT INTERVAL LR MC Encounters Encounter Location Date Provider Diagnosis [email or web address] [address] [address] 06/12/2024 Janel Bryant Plan Of Treatment Next Appt Details Provider Name:Janel maurice, 07/01/2025 11:00:00 AM, [address] [place] [address], [facility] [address], [place], [address], Progress Notes * FALLON COLÓNOB:1945 ([age] yo F)Acc No.[id number]:06/12/2024 PROGRESS NOTES Patient: MANDY LAROSE Appointment Provider: Omkar Bryant M.D. :1945 A ge:78 Y S ex:Female Date:06/12/2024 Address:[address] [place], [place] [phone] Pcp:KHLOE KUMARI M.D. Subjective: * Chief Complaints: * 1 . INTERVAL LR MC. * Medical History: Objective: * Vitals: Assessment: Plan: * Treatment: * Images: Billing Information: * Visit Code: * Procedure Codes: * Electronic signature of Binta Bryant MD on 02/19/2025 at 07:51 AM EDT Sign off status: Pending * Appointment Provider: Omkar MarionD. Date: 1 Generated for Pat high/Bora/Bonnie on: 0 02/19/2025 07:51 AM EDT
[2025-02-19 08:15] VITALS: BP 120/76; PULSE 59; BMI 36.3
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
== END 2025-02-19 09:04 | disposition home or self-care (01) ==
LOC: HO.HCS 07:49
PROVIDERS: PCP Internal Medicine; Visit Provider Nurse Practitioner Family
DX: I35.0 Nonrheumatic aortic (valve) stenosis (principal); I10 Essential (primary) hypertension; I44.0 Atrioventricular block, first degree
CPT/HCPCS: 93010; 99214; G2211

== ENCOUNTER → 2025-02-19 07:48 | Outpatient (BNVA) | payer MEDICARE, SELFPAY | PROVIDERS: PCP Internal Medicine; Visit Provider Nurse Practitioner Family | DX: I35.0 Nonrheumatic aortic (valve) stenosis (principal); I10 Essential (primary) hypertension; I44.0 Atrioventricular block, first degree; R00.1 Bradycardia, unspecified | CPT/HCPCS: 93005; 99212 ==

== ENCOUNTER 2025-03-04 09:21 | Outpatient (REF) | payer MEDICARE, SELFPAY ==
--- OUTSIDE RECORDS SUMMARY | 2024-06-12 05:10 | XMS_ITS ---
Author Organization [facility] [employer] [facility] Address [address] [place] [address] Care Team Providers Care Trial Mgr Name Role Phone QUOC Lucero, KHLOE Primary Care Provider Unavail Janel Pina Unavailable [phone] REASON FOR VISIT INTERVAL LR MC Encounters Encounter Location Date Provider Diagnosis [facility] [employer] [address] [address] 06/12/2024 Janel Bryant Plan Of Treatment Next Appt Details Provider Name:Janel maurice, 07/01/2025 11:00:00 AM, [address] [place] [address], [facility] [address], [place], [address], Progress Notes * FALLON COLÓNOB:1945 ([age] yo F)Acc No.[id number]:06/12/2024 PROGRESS NOTES Patient: MANDY LAROSE Appointment Provider: Omkar Bryant M.D. :1945 A ge:78 Y S ex:Female Date:06/12/2024 Address:[address] [place], [place] [id number] Pcp:KHLOE KUMARI M.D. Subjective: * Chief Complaints: * 1 . INTERVAL LR MC. * Medical History: Objective: * Vitals: Assessment: Plan: * Treatment: * Images: Billing Information: * Visit Code: * Procedure Codes: * Electronic signature of Binta Bryant MD on 03/04/2025 at 09:37 AM EDT Sign off status: Pending * Appointment Provider: Omkar MarionD. Date: 1 Generated for Pat high/Bora/Bonnie on: 0 03/04/2025 09:37 AM EDT
--- NOTE | ~2025-03-04 | US_ITS ---
EXAMINATION: US EXTRACRANIAL CAROTID DUPLEX, BILATERAL CLINICAL INFORMATION: Diabetes. Hypertension. Hyperlipidemia. COMPARISON: None available. TECHNIQUE: Real-time ultrasound and Doppler techniques (integrating B-mode 2-D vascular images, Doppler spectral analysis and color-flow Doppler imaging) were utilized to interrogate the extracranial carotid arteries, the vertebral arteries and proximal subclavian arteries bilaterally. The degree of stenosis is determined by criteria similar to NASCET. FINDINGS: Arrhythmia episodes. Right Side: 1. There is small calcified atherosclerotic plaque seen in the bifurcation/proximal ICA region. 2. The common carotid artery PSV proximally is 150 cm/s and distally 74 cm/s. 3. The proximal internal carotid artery velocities are 100 cm/s systolic and 20 cm/s diastolic. 4. The proximal external carotid artery PSV is 83 cm/s. 5. The vertebral artery shows antegrade flow. 6. The subclavian artery waveforms are triphasic.. Left Side: 1. There is small calcified atherosclerotic plaque seen in the bifurcation/proximal ICA region. 2. The common carotid artery PSV proximally is 138 cm/s and distally 84 cm/s. 3. The proximal internal carotid artery velocities are 80 cm/s systolic and 24 cm/s diastolic. 4. The proximal external carotid artery PSV is 85 cm/s. 5. The vertebral artery shows antegrade flow. 6. The subclavian artery waveforms are triphasic.. Incidentally, 2.6 cm heterogeneous dominant nodule, lower pole left thyroid lobe and prominent 1.5 cm lymph node. US/US carotid duplex BI IMPRESSION: 1. RIGHT: 0-49% stenosis by ultrasound criteria. 2. LEFT: 0-49% stenosis by ultrasound criteria. 2.6 cm heterogeneous dominant nodule left thyroid lobe with associated 1.5 cm lymph node. Electronically signed by: Dharmesh Silveira MD 03/04/2025 10:51 AM EDT
--- OUTSIDE RECORDS SUMMARY | 2025-03-04 09:37 | XMS_ITS | Patient Health Record ---
[facility] [place] Address [address] [place] [address] Care Team Providers Care Buyer Assistant Name Role Phone Camacho [facility]LL, [facility] Primary Care Provider Anita Damon Unavailable [phone] Allergies Allergen (clinical drug ingredient) Drug/Non Drug Allergy documented on EMR Reaction Allergy Type Onset Date Status Shrimp (Diagnostic) swollen throat/itchy puffy eyes + [...] 5 MG 1 tablet Orally Once a day; Duration: 30 day(s) Active Losartan Potassium 100 MG [...] Date Coverage End Date Medicare National Govt Svcs Inc [address] [place] [address] [id number] Eufemia Jimenez Self - patient is the insured [employer] [address] [place] [address] [id number] Eufemia Jimenez Self - patient is the insured Medical (General) History Medical History History ICD Code Anxiety Arthritis Cataracts High blood pressure Poor circulation raynauds disease Measles Mumps Chicken pox Joint implants/screws Bone implants/screws Surgical History Surgery Date(Month/Year) whipple Surgery 09/05/2004 knee replacement 06/2014 vein surgery both legs 06/2020,08/2020
--- OUTSIDE RECORDS SUMMARY | 2025-03-04 09:37 | XMS_ITS | Encounter Summary ---
Author Organization [facility], Address [address] [place] [address] Phone Care Team Providers Care Pigment Furnace Tender Name Role Phone Etta Sauer MD Primary Care Provider [phone] Encounter Details Date Type Department Care Team (Late st Contact Info) Description 10/11/2021 Documentation Only [facility], [address] [place] [address] Irene Dos Santos [address] [place] [phone] Social History Tobacco Use Types Packs/Day Years [...] on filedocumented in this encounter Care Teams Pigment Furnace Tender Relationship Specialty Start Date End Date Etta Sauer MD [place] [address] PCP - General Internal Medicine 10/28/20 documented as of this encounter
--- OUTSIDE RECORDS SUMMARY | 2025-03-04 09:37 | XMS_ITS | Patient Health Record ---
Author Organization [facility] Address [address] [place] [address] Care Team Providers Care Import Specialist Name Role Phone Princess (RETIRED) Moncho LAGUERRE Primary Care Provid er Unavailable Kevin Francis Jr Unavailable Allergies Allergen (clinical drug ingredient) Drug/Non Drug Allergy documented on EMR Reaction Allergy Type Onset Date Status Penicillin Unknown Drug Allergy Active hydrochlorothiazide Hydrochlorothiazide Unknown Drug Aller gy Active Shellfish (FN) SHELLFISH (uncoded) Unknown Allergy Active Reason For Referral No Information Medications Medication SIG (Take, Route, Fr equency, Duration) Notes Start Date End Date Status Daily Vitamin Active Aspirin Active Vitamin D Active Furosemide Active MoviPrep 100 GM as directed before c olonoscopy Orally for 1 dose 06/17/2013 09/02/2024 Active Problems Problem Type SNOMED Code ICD Code Onset Dates Problem Status W/U Status Risk Notes Problem Colon cancer screening (906367416) Colon cancer screening (V76.51) Active confirmed Problem Already on aspirin (249563420) roasterman current use of aspirin (V58.66) Active confirmed Plan Of Treatment Future Test Test Name Order Date COLONOSCOPY 06/17/2013 Insurance Providers Payer Name Payer Address Payer Phone Subscriber Number Group Number Insured Name Patient Relationship to Insured Coverage Start Date Coverage End Date [facility] [place] [employer] [address] [place] [address] [id number] MANDY COLÓN Self - patient is the insured Medical (General) History Medical History History ICD Code hypertension Denies [place],DM,CVA,Lung disease,renal dise ase Surgical History Surgery Date(Month/Year) whipple surgery knee repalcement x2
== END 2025-03-04 09:22 | disposition home or self-care (01) ==
LOC: HO.HMGCX 09:21
PROVIDERS: Absent Provider Surgery Vascular Surgery; PCP Physician Assistant Medical; Visit Provider Physician Assistant Medical
DX: I65.23 Occlusion and stenosis of bilateral carotid arteries (principal); I10 Essential (primary) hypertension; I71.40 Abdominal aortic aneurysm, without rupture, unspecified
CPT/HCPCS: 93880

== ENCOUNTER → 2025-03-04 09:47 | Outpatient (BNV) | payer MEDICARE, SELFPAY | PROVIDERS: Absent Provider Surgery Vascular Surgery; PCP Physician Assistant Medical; Visit Provider Radiology Diagnostic Radiology | DX: E04.1 Nontoxic single thyroid nodule (principal) | CPT/HCPCS: 93880 ==

== ENCOUNTER 2025-03-11 07:17 | Outpatient (REF) | payer MEDICARE, SELFPAY ==
--- OUTSIDE RECORDS SUMMARY | 2024-06-12 05:10 | XMS_ITS ---
Author Organization Total [employer] [facility] Address [address] [facility] [address] [place] [address] Care Team Providers Care Rotary Driller Prospecting Name Role Phone QUOC Lucero, KHLOE Primary Care Provider Unavail Janel Pina Unavailable [phone] REASON FOR VISIT INTERVAL LR MC Encounters Encounter Location Date Provider Diagnosis [facility] [employer] [address] [place] [address] 06/12/2024 Janel Bryant Plan Of Treatment Next Appt Details Provider Name:Janel maurice, 07/01/2025 11:00:00 AM, [address] [place] [address], [facility] [address], [place], [address], Progress Notes * FALLON COLÓNOB:1945 ([age] yo F)Acc No.[id number]:06/12/2024 PROGRESS NOTES Patient: MANDY LAROSE Appointment Provider: Omkar Bryant M.D. :1945 A ge:78 Y S ex:Female Date:06/12/2024 Address:[address] [place], [place] [phone] Pcp:KHLOE KUMARI M.D. Subjective: * Chief Complaints: * 1 . INTERVAL LR MC. * Medical History: Objective: * Vitals: Assessment: Plan: * Treatment: * Images: Billing Information: * Visit Code: * Procedure Codes: * Electronic signature of Binta Bryant MD on 03/11/2025 at 07:20 AM EDT Sign off status: Pending * Appointment Provider: Omkar MarionD. Date: 1 Generated for Pat high/Bora/Bonnie on: 0 03/11/2025 07:20 AM EDT
--- OUTSIDE RECORDS SUMMARY | 2025-03-11 07:20 | XMS_ITS | Encounter Summary ---
Author Organization [facility], Address [address] [place] [address] Phone Care Team Providers Care Staple Laster Name Role Phone Etta Sauer MD Primary Care Provider [phone] Encounter Details Date Type Department Care Team (Late st Contact Info) Description 10/11/2021 Documentation Only [facility], [address] [place] [address] Irene Dos Santos [address] [place] [phone] Social History Tobacco Use Types Packs/Day Years [...] on filedocumented in this encounter Care Teams Staple Laster Relationship Specialty Start Date End Date Etta Sauer MD [facility] [place] [address] PCP - General Internal Medicine 10/28/20 documented as of this encounter
--- OUTSIDE RECORDS SUMMARY | 2025-03-11 07:21 | XMS_ITS | Patient Health Record ---
Author [facility] Address [address] [address] Care Team Providers Care Maternity Floor Supervisor Name Role Phone Camacho BELL, [facility] Primary Care Provider Anita Damon Unavailable [phone] Allergies Allergen (clinical drug ingredient) Drug/Non Drug [...] Medicare National Govt Svcs Inc [address] [place] [address] [id number] Eufemia Jimenez Self - patient is the insured [employer] [address] [place] [address] [id number] Eufemia Jimenez Self - patient is the insured Medical (General) History Medical History History ICD Code Anxiety Arthritis Cataracts High blood pressure Poor circulation raynauds disease Measles Mumps Chicken pox Joint implants/screws Bone implants/screws Surgical History Surgery Date(Month/Year) whipple Surgery 09/05/2004 knee replacement 06/2014 vein surgery both legs 06/2020,08/2020
--- OUTSIDE RECORDS SUMMARY | 2025-03-11 07:21 | XMS_ITS | Patient Health Record ---
Author Organization [facility] Address [address] [place] [address] Care Team Providers Care Slide Attendant Name Role Phone Princess (RETIRED) Moncho LAGUERRE [...] Status Risk Notes Problem Colon cancer screening (096709619) Colon cancer screening (V76.51) Active confirmed Problem Already on aspirin (795409093) skilled nursing current use of aspirin (V58.66) Active confirmed Plan Of Treatment Future Test Test Name Order Date COLONOSCOPY 06/17/2013 Insurance Providers Payer Name Payer Address Payer Phone Subscriber Number Group Number Insured Name Patient Relationship to Insured Coverage Start Date Coverage End Date [facility] [place] [employer] [place] [address] [place] [address] [id number] MANDY COLÓN Self - patient is the insured Medical (General) History Medical History History ICD Code hypertension Denies [place],DM,CVA,Lung disease,renal dise ase Surgical History Surgery Date(Month/Year) whipple surgery knee repalcement x2
== END 2025-03-11 07:18 | disposition home or self-care (01) ==
LOC: HO.LAB 07:17
PROVIDERS: PCP Physician Assistant Medical; Visit Provider Physician Assistant Medical
DX: E03.9 Hypothyroidism, unspecified (principal)
CPT/HCPCS: 36415; 84443

== ENCOUNTER 2025-03-17 09:11 | Outpatient (AMB) | payer MEDICARE, SELFPAY ==
--- OUTSIDE RECORDS SUMMARY | 2024-06-12 05:10 | XMS_ITS ---
Author Organization [facility] Address [address] [place] [address] Care Team Providers Care Network Control Supervisor Name Role Phone QUOC Lucero, KHLOE Primary Care Provider Unavail Janel Pina Unavailable [phone] REASON FOR VISIT INTERVAL LR MC Encounters Encounter Location Date Provider Diagnosis [facility] [address] [address] 06/12/2024 Janel Bryant Plan Of Treatment Next Appt Details Provider Name:Janel maurice, 07/01/2025 11:00:00 AM, [address] [place] [address], [facility] [address], [place], [address], Progress Notes * FALLON COLÓNOB:1945 ([age] yo F)Acc No.[id number]:06/12/2024 PROGRESS NOTES Patient: MANDY LAROSE Appointment Provider: Omkar Bryant M.D. :1945 A ge:78 Y S ex:Female Date:06/12/2024 Address:[address] [place], [place] [id number] Pcp:KHLOE KUMARI M.D. Subjective: * Chief Complaints: * 1 . INTERVAL LR MC. * Medical History: Objective: * Vitals: Assessment: Plan: * Treatment: * Images: Billing Information: * Visit Code: * Procedure Codes: * Electronic signature of Binta Bryant MD on 03/17/2025 at 09:28 AM EDT Sign off status: Pending * Appointment Provider: Omkar MarionD. Date: 1 Generated for Pat high/Bora/Bonnie on: 0 03/17/2025 09:28 AM EDT
[2025-03-17 09:16] VITALS: BP 140/72; PULSE 65; RESP 20; TEMP 37; O2SAT 99; BMI 35.8
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
--- OUTSIDE RECORDS SUMMARY | 2025-03-17 09:28 | XMS_ITS | Patient Health Record ---
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 current use of aspirin (V58.66) Active confirmed Plan Of Treatment Future Test Test Name Order Date COLONOSCOPY 06/17/2013 Insurance Providers Payer Name Payer Address Payer Phone Subscriber Number Group Number Insured Name Patient Relationship to Insured Coverage Start Date Coverage End Date [facility] [employer] PROFESSIONAL CLAIMS [address] [place] [address] [phone] [id number] MANDY COLÓN Self - patient is the insured Medical (General) History Medical History History ICD Code hypertension Denies [place],DM,CVA,Lung disease,renal dise ase Surgical History Surgery Date(Month/Year) whipple surgery knee repalcement x2
--- OUTSIDE RECORDS SUMMARY | 2025-03-17 09:28 | XMS_ITS | Encounter Summary ---
Author Organization [facility], Address [address] [place] [address] Phone Care Team Providers Care Lead Sewage Plant Operator Name Role Phone Etta Sauer MD Primary Care Provider [phone] Encounter Details Date Type Department Care Team (Late st Contact Info) Description 10/11/2021 Documentation Only [facility], [address] [place] [address] Irene Dos Santos [address] [place] [phone] Social History Tobacco Use Types Packs/Day Years [...] on filedocumented in this encounter Care Teams Lead Sewage Plant Operator Relationship Specialty Start Date End Date Etta Sauer MD [facility] [place] [address] PCP - General Internal Medicine 10/28/20 documented as of this encounter
--- OUTSIDE RECORDS SUMMARY | 2025-03-17 09:28 | XMS_ITS | Patient Health Record ---
Author [facility] Address [address] [place] [address] Care Team Providers Care Consolidation Accountant Name Role Phone [facility], [facility] Primary Care Provider Anita Damon Unavailable [phone] Allergies Allergen (clinical drug ingredient) Drug/Non Drug [...] Inc [address] [place] [address] [id number] Eufemia Jimenez Self - patient is the insured [employer] [address] [place] [address] [id number] Eufemia Jimenez Self - patient is the insured Medical (General) History Medical History History ICD Code Anxiety Arthritis Cataracts High blood pressure Poor circulation raynauds disease Measles Mumps Chicken pox Joint implants/screws Bone implants/screws Surgical History Surgery Date(Month/Year) whipple Surgery 09/05/2004 knee replacement 06/2014 vein surgery both legs 06/2020,08/2020
== END 2025-03-17 09:55 | disposition home or self-care (01) ==
LOC: HO.HMCSH 09:11
PROVIDERS: PCP Physician Assistant Medical; Visit Provider Physician Assistant Medical
DX: E04.1 Nontoxic single thyroid nodule (principal); I65.29 Occlusion and stenosis of unspecified carotid artery; Z00.00 Encounter for general adult medical examination without abnormal findings

== ENCOUNTER → 2025-03-17 09:11 | Outpatient (BNVA) | payer MEDICARE, SELFPAY | PROVIDERS: PCP Physician Assistant Medical; Visit Provider Physician Assistant Medical | DX: Z00.00 Encounter for general adult medical examination without abnormal findings (principal); E04.1 Nontoxic single thyroid nodule; I65.29 Occlusion and stenosis of unspecified carotid artery; E03.9 Hypothyroidism, unspecified | CPT/HCPCS: 96127; 99212 ==

== ENCOUNTER 2025-03-25 08:35 | Outpatient (AMB) | payer MEDICARE, SELFPAY ==
--- OUTSIDE RECORDS SUMMARY | 2024-06-12 05:10 | XMS_ITS ---
Author Organization Total [facility] Address [address] [facility] [address] [place] [address] Care Team Providers Care Utility Teller Name Role Phone QUOC Lucero, KHLOE Primary Care Provider Unavail Janel Pina Unavailable [phone] REASON FOR VISIT INTERVAL LR MC Encounters Encounter Location Date Provider Diagnosis [facility] [employer] [address] [address] 06/12/2024 Janel Bryant Plan Of Treatment Next Appt Details Provider Name:Janel maurice, 07/01/2025 11:00:00 AM, [address] [place] [address], [facility] [address], [place], [address], Progress Notes * FALLON COLÓNOB:1945 ([age] yo F)Acc No.[id number]:06/12/2024 PROGRESS NOTES Patient: MANDY LAROSE Appointment Provider: Omkar Bryant M.D. :1945 A ge:78 Y S ex:Female Date:06/12/2024 Address:[address] [place], [place] [phone] Pcp:KHLOE KUMARI M.D. Subjective: * Chief Complaints: * 1 . INTERVAL LR MC. * Medical History: Objective: * Vitals: Assessment: Plan: * Treatment: * Images: Billing Information: * Visit Code: * Procedure Codes: * Electronic signature of Binta Bryant MD on 03/25/2025 at 08:55 AM EDT Sign off status: Pending * Appointment Provider: Omkar MarionD. Date: 1 Generated for Pat high/Bora/Bonnie on: 0 03/25/2025 08:55 AM EDT
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
--- OUTSIDE RECORDS SUMMARY | 2025-03-25 08:55 | XMS_ITS | Encounter Summary ---
Author Organization [facility], Address [address] [place] [address] Phone Care Team Providers Care Collection Team Lead Name Role Phone Etta Sauer MD Primary Care Provider [phone] Encounter Details Date Type Department Care Team (Late st Contact Info) Description 10/11/2021 Documentation Only [facility], [address] [place] [address] Irene Dos Santos [address] [place] [phone] Social History Tobacco Use Types Packs/Day Years [...] on filedocumented in this encounter Care Teams Collection Team Lead Relationship Specialty Start Date End Date Etta Sauer MD [facility] [place] [address] PCP - General Internal Medicine 10/28/20 documented as of this encounter
--- OUTSIDE RECORDS SUMMARY | 2025-03-25 08:56 | XMS_ITS | Patient Health Record ---
Author Organization [facility] Address [address] [place] [address] Care Team Providers Care Gage Maker Name Role Phone Princess (RETIRED) Moncho LAGUERRE Primary Care Provid er Unavailable Kevin Francis Jr Unavailable [phone] Allergies Allergen (clinical drug ingredient) Drug/Non Drug [...] Status Risk Notes Problem Colon cancer screening (588958374) Colon cancer screening (V76.51) Active confirmed Problem Already on aspirin ([id number]) shelter current use of aspirin (V58.66) Active confirmed Plan Of Treatment Future Test Test Name Order Date COLONOSCOPY 06/17/2013 Insurance Providers Payer Name Payer Address Payer Phone Subscriber Number Group Number Insured Name Patient Relationship to Insured Coverage Start Date Coverage End Date [facility] [employer] PROFESSIONAL CLAIMS [address] [place] [address] [id number] MANDY COLÓN Self - patient is the insured Medical (General) History Medical History History ICD Code hypertension Denies [place],DM,CVA,Lung disease,renal dise ase Surgical History Surgery Date(Month/Year) whipple surgery knee repalcement x2
--- OUTSIDE RECORDS SUMMARY | 2025-03-25 08:56 | XMS_ITS | Patient Health Record ---
Author Organization [facility] lud[place]ina [place] Address [address] [facility] [place] [address] Care Team Providers Care Captain Waiter/Waitress Name Role Phone Camacho BELL, [facility] Primary Care Provider Anita Damon Unavailable [phone] Allergies Allergen (clinical drug ingredient) Drug/Non Drug [...] Inc [address] [place] [address] [id number] Eufemia Jimenez Self - patient is the insured [employer] [address] [place] [address] [phone] [id number] Eufemia Jimenez Self - patient is the insured Medical (General) History Medical History History ICD Code Anxiety Arthritis Cataracts High blood pressure Poor circulation raynauds disease Measles Mumps Chicken pox Joint implants/screws Bone implants/screws Surgical History Surgery Date(Month/Year) whipple Surgery 09/05/2004 knee replacement 06/2014 vein surgery both legs 06/2020,08/2020
== END 2025-03-25 09:12 | disposition home or self-care (01) ==
LOC: HO.HVS 08:35
PROVIDERS: PCP Physician Assistant Medical; Visit Provider Surgery Vascular Surgery
DX: I83.12 Varicose veins of left lower extremity with inflammation (principal); I83.11 Varicose veins of right lower extremity with inflammation; I89.0 Lymphedema, not elsewhere classified
CPT/HCPCS: 99214

== ENCOUNTER → 2025-03-25 08:35 | Outpatient (BNVA) | payer MEDICARE, SELFPAY | PROVIDERS: PCP Physician Assistant Medical; Visit Provider Surgery Vascular Surgery | DX: I83.12 Varicose veins of left lower extremity with inflammation (principal); I83.11 Varicose veins of right lower extremity with inflammation; I89.0 Lymphedema, not elsewhere classified | CPT/HCPCS: 99212 ==

== ENCOUNTER → 2025-03-30 07:38 | Outpatient (REF) | payer MEDICARE, SELFPAY ==
--- OUTSIDE RECORDS SUMMARY | 2024-06-12 05:10 | XMS_ITS ---
Author Organization Total [facility] Address [address] [facility] [address] [place] [address] Care Team Providers Care Maintenance Department Technician Name Role Phone QUOC Lucero, KHLOE Primary Care Provider Unavail Janel Pina Unavailable [phone] REASON FOR VISIT INTERVAL LR MC Encounters Encounter Location Date Provider Diagnosis [facility] [address] [address] 06/12/2024 Janel Bryant Plan Of Treatment Next Appt Details Provider Name:Janel maurice, 07/01/2025 11:00:00 AM, [address] [place] [address], [facility] [address], [place], [address], Progress Notes * FALLON COLÓNOB:1945 ([age] yo F)Acc No.[id number]:06/12/2024 PROGRESS NOTES Patient: MANDY LAROSE Appointment Provider: Omkar Bryant M.D. :1945 A ge:78 Y S ex:Female Date:06/12/2024 Address:[address] [place], [place] [id number] Pcp:KHLOE KUMARI M.D. Subjective: * Chief Complaints: * 1 . INTERVAL LR MC. * Medical History: Objective: * Vitals: Assessment: Plan: * Treatment: * Images: Billing Information: * Visit Code: * Procedure Codes: * Electronic signature of Binta Bryant MD on 03/30/2025 at 07:41 AM EDT Sign off status: Pending * Appointment Provider: Omkar MarionD. Date: 1 Generated for Pat high/Bora/Bonnie on: 0 03/30/2025 07:41 AM EDT
--- NOTE | 2025-03-30 07:40 | CA_ITS ---
Transthoracic Echocardiogram Patient (Last, First, Middle): Eufemia Jimenez P Gender: Female Date of : 1945 Age: 79 Procedure Date: 03/30/2025 Procedure Type: Transthoracic Echocardiogram Location: OP Height: 160. cm Weight: 86.18 kg BSA: 1.89 m2 Heart Rate: 62 bpm BP: 146 / 70 mmHg Grill Associate: SERENITY Referring MD: Rachael Shah VENEER REDRIER-C Symptoms: I35.0 - Nonrheumatic aortic (valve) stenosis Study Quality: Adequate ECG Rhythm: Sinus Conclusions: - 1. Normal LV ejection fraction of 60 65% with impaired relaxation filling pattern 2. Mild aortic stenosis 3. Normal measured RV systolic pressure 4. No gross pericardial effusion Findings Left Ventricle Normal left ventricular size, thickness, and systolic function. The visually estimated ejection fraction is between 60-65%. Spectral Doppler is indicative of an impaired relaxation filling pattern. E/E prime ratio is between 8 and 15 consistent with indeterminate filling pressures. Right Ventricle Normal right ventricular cavity size and systolic function. Atria The left atrium is likely dilated. There is no evidence of interatrial shunt. The right atrium is normal in size. Aortic Valve There is mild calcification of the aortic valve. There is mild thickening of the aortic valve. There is mild aortic valve stenosis. The peak aortic gradient is 21 mmHg.The mean gradient is 11 mmHg. There is no aortic valve regurgitation. Mitral Valve There is mild posterior mitral leaflet thickening. There is mild mitral annular calcification. There is trace mitral valve regurgitation. There is no mitral valve stenosis. Pulmonic Valve The pulmonic valve was not well visualized. Tricuspid Valve Likely normal tricuspid valve structure and function. There is mild tricuspid valve regurgitation. The right ventricular systolic pressure is normal. The right ventricular systolic pressure is 27 mmHg. Normal right atrial pressure. There is no evidence of pulmonary hypertension. Great Vessels The pulmonary artery was not well visualized. There is no dilatation of the ascending aorta measuring 3.40 cm. Small plaque is seen in the sino tubular ridge. Venous The inferior vena cava is normal in size and collapses greater than 50% with inspiration. Pericardium/Pleural There is no evidence of pericardial effusion. Prior Study Comparison No significant change compared to prior study dated: 01/30/2023. Measurements 2D Linear Measurements IVSd: 1.05 0.6-0.9/0.6-1.0 cm LVIDd: 4.41 3.9-5.3/4.2-5.9 cm LVIDd Index: 2.33 2.4-3.2/2.2-3.1 cm/m2 LVIDs: 2.83 2.0-3.6 cm LVPWd: 0.93 0.7-1.1 cm LA Diam: 4.20 2.7-3.8/3.0-4.0 cm LAIDs Index: 2.22 1.5-2.3 cm/m2 LV Mass: 181.90 67-162/88-224 g LV Mass Index: 96.24 43-95/49-115 g/m2 LVOT Diam: 2.00 3.0+(-)1.3 cm 2D Systolic Function EF 4C: 63.20 >55% EF 2C: 65.30 >55% EF BiP: 64.10 >55% Mitral Valve MV Pk E: 0.95 MV PK A: 1.02 MV Decel Time: 215.00 E/A: 0.90 E'Lateral: 11.60 E'Medial: 6.53 E/E' Med: 14.50 E/E' Lat: 8.20 PHT: 63.00 MVA PHT: 3.49 Decel Rapides: 4.41 Aortic Valve AoV Pk Jose: 2.28 AoV Mn Jose: 1.54 AoV VTI: 0.57 AoV Pk Grad: 21.00 Aov Mn Grad: 11.00 KERI Cont.VTI: 1.48 LVOT LVOT Pk Jose: 0.97 LVOT Mn Jose: 0.74 LVOT VTI: 0.27 LVOT Pk Grad: 4.00 LVOT Mn Grad: 2.00 LVOT Diam: 2.00 LVOT Area: 3.14 Diastolic Function MV Pk E: 0.95 MV Pk A: 1.02 E/A: 0.90 E'Medial: 6.53 E/E' Med: 14.50 E' Laterial: 11.60 E/E' Lat: 8.20 Right Ventricle TAPSE (mm): 32.30 TVS' Jose: 11.90 Tricuspid Valve TR Pk Jose: 2.46 TR Pk Grad: 24.00 RA Press: 3.00 RVSP: 27.00 Great Vessels Aorta Sinus of Valsalva: 3.00 2.0-3.5 cm Ao Asc: 3.40 2.1-3.4 cm Ao Arch: 3.20 Pulmonary Valve PV Pk Jose: 1.17 Peak PV Grad: 5.00 Updated in Other Vendor System with Status of Final Delfin Porras MD electronically signed on 03/30/2025 12:00:26 PM with status of Final
--- OUTSIDE RECORDS SUMMARY | 2025-03-30 07:42 | XMS_ITS | Patient Health Record ---
Author Organization [facility] ludivina [place] Address [address] [facility] [address] Care Team Providers Care Special Distribution Clerk Name Role Phone Camacho BELL, [facility] Primary Care Provider Anita Damon Unavailable [phone] Allergies Allergen (clinical drug ingredient) Drug/Non Drug [...] Inc [address] [place] [address] [id number] Eufemia Jimenez Self - patient is the insured [employer] [address] [place] [address] [id number] Eufemia Jimenez Self - patient is the insured Medical (General) History Medical History History ICD Code Anxiety Arthritis Cataracts High blood pressure Poor circulation raynauds disease Measles Mumps Chicken pox Joint implants/screws Bone implants/screws Surgical History Surgery Date(Month/Year) whipple Surgery 09/05/2004 knee replacement 06/2014 vein surgery both legs 06/2020,08/2020
--- OUTSIDE RECORDS SUMMARY | 2025-03-30 07:42 | XMS_ITS | Patient Health Record ---
Author Organization [facility] Address [address] [place] [address] Care Team Providers Care Talent Specialist Name Role Phone Princess (RETIRED) Moncho [...] Status Risk Notes Problem Colon cancer screening (392826652) Colon cancer screening (V76.51) Active confirmed Problem Already on aspirin (644370512) retirement current use of aspirin (V58.66) Active confirmed Plan Of Treatment Future Test Test Name Order Date COLONOSCOPY 06/17/2013 Insurance Providers Payer Name Payer Address Payer Phone Subscriber Number Group Number Insured Name Patient Relationship to Insured Coverage Start Date Coverage End Date [facility] [employer] [address] [place] [address] [id number] MANDY COLÓN Self - patient is the insured Medical (General) History Medical History History ICD Code hypertension Denies [place],DM,CVA,Lung disease,renal dise ase Surgical History Surgery Date(Month/Year) whipple surgery knee repalcement x2
--- OUTSIDE RECORDS SUMMARY | 2025-03-30 07:42 | XMS_ITS | Encounter Summary ---
Author Organization [facility], Address [address] [place] [address] Phone Care Team Providers Care Childhood Teacher Name Role Phone Etta Sauer MD Primary Care Provider [phone] Encounter Details Date Type Department Care Team (Late st Contact Info) Description 10/11/2021 Documentation Only [facility], [address] [place] [address] Irene Dos [address] [place] [phone] Social History Tobacco Use Types Packs/Day Years [...] on filedocumented in this encounter Care Teams Childhood Teacher Relationship Specialty Start Date End Date Etta Sauer MD [facility] [place] [address] PCP - General Internal Medicine 10/28/20 documented as of this encounter
== END ==
LOC: HO.CARD 07:38
PROVIDERS: PCP Physician Assistant Medical; Visit Provider Nurse Practitioner Family
DX: I35.0 Nonrheumatic aortic (valve) stenosis (principal); I10 Essential (primary) hypertension
CPT/HCPCS: 93306

== ENCOUNTER → 2025-03-30 07:40 | Outpatient (BNV) | payer MEDICARE, SELFPAY | PROVIDERS: PCP Physician Assistant Medical; Visit Provider Internal Medicine Cardiovascular Disease | DX: I35.0 Nonrheumatic aortic (valve) stenosis (principal) | CPT/HCPCS: 93306 ==

== ENCOUNTER 2025-04-06 08:53 | Outpatient (AMB) | payer MEDICARE, SELFPAY ==
--- OUTSIDE RECORDS SUMMARY | 2024-06-12 05:10 | XMS_ITS ---
Author Organization Total [employer] [facility] Address [address] [facility] [address] [place] [address] Care Team Providers Care Medical Concierge Name Role Phone QUOC Lucero, KHLOE Primary Care Provider Unavail Janel Pina Unavailable [phone] REASON FOR VISIT INTERVAL LR MC Encounters Encounter Location Date Provider Diagnosis [facility] [employer] [address] [place] [address] 06/12/2024 Janel Bryatn Plan Of Treatment Next Appt Details Provider Name:Janel maurice, 07/01/2025 11:00:00 AM, [address] [place] [address], [address], [place], [address], Progress Notes * FALL[place] COLÓNOB:1945 (7 0 yo F)Acc No.[id number]:06/12/2024 PROGRESS NOTES Patient: MANDY LAROSE Appointment Provider: Omkar Bryant M.D. :1945 A ge:78 Y S ex:Female Date:06/12/2024 Address:[address] [place], [place] [phone] Pcp:KHLOE KUMARI M.D. Subjective: * Chief Complaints: * 1 . INTERVAL LR MC. * Medical History: Objective: * Vitals: Assessment: Plan: * Treatment: * Images: Billing Information: * Visit Code: * Procedure Codes: * Electronic signature of Binta Bryant MD on 04/06/2025 at 09:10 AM EDT Sign off status: Pending * Appointment Provider: Omkar MarionD. Date: 1 Generated for Pat high/Bora/Bonnie on: 0 04/06/2025 09:10 AM EDT
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
[2025-04-06 08:56] VITALS: BP 134/80; PULSE 70; RESP 16; TEMP 36.4; O2SAT 97; BMI 35.2
--- OUTSIDE RECORDS SUMMARY | 2025-04-06 09:10 | XMS_ITS | Patient Health Record ---
Author Organization [facility] ludivina [place] Address [address] [facility] [place] [address] Care Team Providers Care Cart Driver Name Role Phone Camacho BELL, [facility] Primary Care Provider Anita Damon Unavailable [phone] Allergies Allergen (clinical drug ingredient) Drug/Non Drug [...] Inc [address] [place] [address] [id number] Eufemia Jimenez Self - patient is the insured [employer] [address] [place] [address] [id number] Eufemia Jimenez Self - patient is the insured Medical (General) History Medical History History ICD Code Anxiety Arthritis Cataracts High blood pressure Poor circulation raynauds disease Measles Mumps Chicken pox Joint implants/screws Bone implants/screws Surgical History Surgery Date(Month/Year) whipple Surgery 09/05/2004 knee replacement 06/2014 vein surgery both legs 06/2020,08/2020
--- OUTSIDE RECORDS SUMMARY | 2025-04-06 09:10 | XMS_ITS | Encounter Summary ---
Author Organization [facility], Address [address] [place] [address] Phone Care Team Providers Care Aluminum Sheet Cutter Name Role Phone Etta Sauer MD Primary Care Provider [phone] Encounter Details Date Type Department Care Team (Late st Contact Info) Description 10/11/2021 Documentation Only [facility], [address] [place] [address] Irene Dos Santos [address] [place] [phone] Social History Tobacco Use Types Packs/Day Years [...] on filedocumented in this encounter Care Teams Aluminum Sheet Cutter Relationship Specialty Start Date End Date Etta Sauer MD [place] [address] PCP - General Internal Medicine 10/28/20 documented as of this encounter
--- OUTSIDE RECORDS SUMMARY | 2025-04-06 09:11 | XMS_ITS | Patient Health Record ---
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 current use of aspirin (V58.66) Active confirmed Plan Of Treatment Future Test Test Name Order Date COLONOSCOPY 06/17/2013 Insurance Providers Payer Name Payer Address Payer Phone Subscriber Number Group Number Insured Name Patient Relationship to Insured Coverage Start Date Coverage End Date [facility] [employer] [address] [place] [address] [id number] MANDY COLÓN Self - patient is the insured Medical (General) History Medical History History ICD Code hypertension Denies [place],DM,CVA,Lung disease,renal dise ase Surgical History Surgery Date(Month/Year) whipple surgery knee repalcement x2
== END 2025-04-06 09:34 | disposition home or self-care (01) ==
LOC: HO.HMCSH 08:53
PROVIDERS: PCP Physician Assistant Medical; Visit Provider Physician Assistant Medical
DX: Z00.00 Encounter for general adult medical examination without abnormal findings (principal); I10 Essential (primary) hypertension; I35.0 Nonrheumatic aortic (valve) stenosis; E04.1 Nontoxic single thyroid nodule; E73.9 Lactose intolerance, unspecified; L65.9 Nonscarring hair loss, unspecified; R60.0 Localized edema; E66.9 Obesity, unspecified

== ENCOUNTER → 2025-04-06 08:53 | Outpatient (BNVA) | payer MEDICARE, SELFPAY | PROVIDERS: PCP Physician Assistant Medical; Visit Provider Physician Assistant Medical | DX: Z00.00 Encounter for general adult medical examination without abnormal findings (principal); I10 Essential (primary) hypertension; I35.0 Nonrheumatic aortic (valve) stenosis; E04.1 Nontoxic single thyroid nodule; E73.9 Lactose intolerance, unspecified; L65.9 Nonscarring hair loss, unspecified; R60.0 Localized edema; E66.9 Obesity, unspecified; Z68.35 Body mass index [BMI] 35.0-35.9, adult; Z79.899 Other long term (current) drug therapy | CPT/HCPCS: 96127; 99397 ==

== ENCOUNTER 2025-04-08 09:25 | Outpatient (REF) | payer MEDICARE, SELFPAY ==
--- OUTSIDE RECORDS SUMMARY | 2024-06-12 05:10 | XMS_ITS ---
Author Organization [facility] [employer] [facility] Address [address] [facility] [address] [place] [address] Care Team Providers Care Hot Braider Name Role Phone QUOC Lucero, KHLOE Primary Care Provider Unavail Janel Pina Unavailable [phone] REASON FOR VISIT INTERVAL LR MC Encounters Encounter Location Date Provider Diagnosis [facility] [address] [place] [address] 06/12/2024 Janel Bryant Plan Of Treatment Next Appt Details Provider Name:Janel maurice, 07/01/2025 11:00:00 AM, [address] [place] [address], [facility] [address], [place], [address], Progress Notes * FALLON COLÓNOB:1945 ([age] yo F)Acc No.[id number]:06/12/2024 PROGRESS NOTES Patient: MANDY LAROSE Appointment Provider: Omkar Bryant M.D. :1945 A ge:78 Y S ex:Female Date:06/12/2024 Address:[address] [place], [place] [id number] Pcp:KHLOE KUMARI M.D. Subjective: * Chief Complaints: * 1 . INTERVAL LR MC. * Medical History: Objective: * Vitals: Assessment: Plan: * Treatment: * Images: Billing Information: * Visit Code: * Procedure Codes: * Electronic signature of Binta Bryant MD on 04/08/2025 at 09:49 AM EDT Sign off status: Pending * Appointment Provider: Omkar MarionD. Date: 1 Generated for Pat high/Bora/Bonnie on: 0 04/08/2025 09:49 AM EDT
--- NOTE | ~2025-04-08 | US_ITS ---
EXAMINATION: US THYROID HISTORY: E04.1 - Nontoxic single thyroid nodule TECHNIQUE: Real-time grayscale ultrasound imaging was performed and images were reviewed. COMPARISON: Correlation is made with a carotid ultrasound dated 03/04/2025. FINDINGS: SIZE: The right thyroid lobe measures 3.5 x 1.1 x 1.3 cm. The left thyroid lobe measures 4.5 x 2.5 x 1.3 cm. The isthmus measures 7 mm. FLOW: Flow to the gland is increased. ECHOGENICITY: The echotexture of the gland is heterogeneous on the left. NODULES: Nodules are seen in both thyroid lobes as described below: Nodule #: 1 Location: Upper pole of the right thyroid lobe measuring 9 x 6 x 7 mm. Shape: Wider than tall (0 points) Margins: Smooth (0 points) Echotexture: Isoechoic (1 point) Composition: Solid (2 points) Calcifications: None (0 points) Total points: 3 TIRADS: TR3: Mildly suspicious. Nodule #: 2 Location: Mid to lower pole of the left thyroid lobe measuring 2.6 x 1.8 x 1.9 cm. Shape: Wider than tall (0 points) Margins: Irregular (2 points) Echotexture: Very hypoechoic (3 points) Composition: Solid (2 points) Calcifications: Punctate calcifications (3 points) Total points: 10 TIRADS: TR5: Highly suspicious. Nodule #: 3 Location: Lower pole of the left thyroid lobe measuring 7 x 8 x 7 mm. Shape: Taller than wide (3 points) Margins: Smooth (0 points) Echotexture: Very hypoechoic (3 points) Composition: Solid (2 points) Calcifications: None (0 points) Total points: 8 TIRADS: TR5: Highly suspicious. US/US thyroid IMPRESSION: Two highly suspicious nodules are seen in the left thyroid lobe as described above. According to ACR TI-RADS guidelines below, ultrasound-guided fine-needle aspiration of the larger nodule in the mid to lower pole (nodule #2) is recommended. The smaller left-sided nodule can be followed. ACR TI-RADS Guidelines TR1 (0 points): Benign. No follow-up or biopsy required TR2 (2 points): Not Suspicious. No biopsy or follow up indicated TR3 (3 points): Mildly Suspicious. FNA if >= 2.5 cm, Follow if >= 1.5 cm TR4 (4-6 points): Moderately Suspicious. FNA if >= 1.5 cm, Follow if >= 1.0 cm TR5 (>=7 points): Highly Suspicious. FNA if >= 1.0 cm, Follow if >= 0.5 cm Electronically signed by: Moncho Junior MD 04/08/2025 10:46 AM EDT
--- OUTSIDE RECORDS SUMMARY | 2025-04-08 09:50 | XMS_ITS | Patient Health Record ---
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 (V58.66) Active confirmed Plan Of Treatment Future Test Test Name Order Date COLONOSCOPY 06/17/2013 Insurance Providers Payer Name Payer Address Payer Phone Subscriber Number Group Number Insured Name Patient Relationship to Insured Coverage Start Date Coverage End Date [facility] BLUE BS PROFESSIONAL CLAIMS [address] [place] [address] [id number] MANDY COLÓN Self - patient is the insured Medical (General) History Medical History History ICD Code hypertension Denies [place],DM,CVA,Lung disease,renal dise ase Surgical History Surgery Date(Month/Year) whipple surgery knee repalcement x2
--- OUTSIDE RECORDS SUMMARY | 2025-04-08 09:50 | XMS_ITS | Encounter Summary ---
Author Organization [facility], Address [address] [place] [address] Phone Care Team Providers Care Tailor Men'S Ready To Wear Name Role Phone Etta Sauer MD Primary Care Provider [phone] Encounter Details Date Type Department Care Team (Late st Contact Info) Description 10/11/2021 Documentation Only [facility], [address] [place] [address] Irene Dos Santos [address] [place] [phone] Social History Tobacco Use Types Packs/Day Years [...] on filedocumented in this encounter Care Teams Tailor Men'S Ready To Wear Relationship Specialty Start Date End Date Etta Sauer MD [facility] [place] [address] PCP - General Internal Medicine 10/28/20 documented as of this encounter
--- OUTSIDE RECORDS SUMMARY | 2025-04-08 09:50 | XMS_ITS | Patient Health Record ---
Author Organization [facility] [place] Address [address] [place] [address] Care Team Providers Care Dental Hygiene Teacher Name Role Phone Camacho BELL, [facility] Primary Care Provider Anita Damon Unavailable [phone] Allergies Allergen (clinical drug ingredient) Drug/Non Drug [...] Inc [address] [place] [address] [id number] Eufemia Jimenez Self - patient is the insured [employer] [address] [place] [address] [phone] [id number] Eufemia Jimenez Self - patient is the insured Medical (General) History Medical History History ICD Code Anxiety Arthritis Cataracts High blood pressure Poor circulation raynauds disease Measles Mumps Chicken pox Joint implants/screws Bone implants/screws Surgical History Surgery Date(Month/Year) whipple Surgery 09/05/2004 knee replacement 06/2014 vein surgery both legs 06/2020,08/2020
== END 2025-04-08 09:26 | disposition home or self-care (01) ==
LOC: HO.HMGCX 09:25
PROVIDERS: Visit Provider Physician Assistant Medical
DX: E04.1 Nontoxic single thyroid nodule (principal)
CPT/HCPCS: 76536

== ENCOUNTER → 2025-04-08 09:27 | Outpatient (BNV) | payer MEDICARE, SELFPAY | PROVIDERS: Visit Provider Radiology Diagnostic Radiology | DX: E04.2 Nontoxic multinodular goiter (principal) | CPT/HCPCS: 76536 ==

== ENCOUNTER 2025-04-20 11:21 | Outpatient (REF) | payer MEDICARE, SELFPAY ==
--- OUTSIDE RECORDS SUMMARY | 2024-06-12 05:10 | XMS_ITS ---
Author Organization Total [facility] Address [address] [facility] [address] [place] [address] Care Team Providers Care Fusion Juncture Grinder Name Role Phone QUOC Lucero, KHLOE Primary Care Provider Unavail Janel Pina Unavailable [phone] REASON FOR VISIT INTERVAL LR MC Encounters Encounter Location Date Provider Diagnosis [facility] [address] [place] [address] 06/12/2024 Janel Bryant Plan Of Treatment Next Appt Details Provider Name:Janel maurice, 07/01/2025 11:00:00 AM, [address] [place] [address], [address], [place], [address], Progress Notes * FALLON COLÓNOB:1945 ([age] yo F)Acc No.[id number]:06/12/2024 PROGRESS NOTES Patient: MANDY LAROSE Appointment Provider: Omkar Bryant M.D. :1945 A ge:78 Y S ex:Female Date:06/12/2024 Address:[address] [place], [place] [phone] Pcp:KHLOE KUMARI M.D. Subjective: * Chief Complaints: * 1 . INTERVAL LR MC. * Medical History: Objective: * Vitals: Assessment: Plan: * Treatment: * Images: Billing Information: * Visit Code: * Procedure Codes: * Electronic signature of Binta Bryant MD on 04/20/2025 at 12:53 PM EDT Sign off status: Pending * Appointment Provider: Omkar MarionD. Date: 1 Generated for Pat high/Bora/Bonnie on: 0 04/20/2025 12:53 PM EDT
--- OUTSIDE RECORDS SUMMARY | 2025-04-15 10:55 | XMS_ITS ---
Author Organization [facility] Address [address] [place] [address] Care Team Providers Care Yard Inspector Name Role Phone TESHA TORRES PA-C Primary Care Provider Kevin Matamoros Jr Unavailable [phone] Allergies Allergen (clinical drug ingredient) Drug/Non Drug Allergy documented on EMR Reaction Allergy Type Onset Date Status Penicillin Unknown Drug Allergy Active hydrochlorothiazide Hydrochlorothiazide Unknown Drug Aller gy Active Shellfish (FN) SHELLFISH (uncoded) Unknown Allergy Active REASON FOR VISIT PATIENT PRESENTS TODAY FOR POSITIVE COLOGUARD Medications Medication SIG (Take, Route, Frequency, Duration) Notes Start Date End Date Status Losartan Potassium 100 MG Oral for 90 Days Active Levothyroxine Sodium 25 MCG Oral for 42 Days Active Aspirin Active Clindamycin HCl 300 MG Oral for 6 Days Active Rosuvastatin Calcium 5 MG Oral for 90 Days Active Atenolol 100 MG Oral for 90 Days Active Daily Vitamin Active Furosemide 40 MG 1 tablet Orally Once a day Active Vitamin D Active Enzyme Active Social History Alcohol Screen Question Answer Notes Did you have a drink contain ing alcohol in the past year? Yes Points 1 Interpretation Negative How often did you have 6 or more drinks on one occasion in the past year? Never (0 point) How many drinks did you have on a typical day when you were drinking in the past year? 1 or 2 drinks (0 point) How often did you have a dri nk containing alcohol in the past year? Monthly or less (1 point) AUDIT-C (Standard) Question Answer Notes Did you have a drink containing alcohol in the p ast year? No Points 0 Interpretation Negative Vital Signs Blood pressure systolic 111 mm Hg 04/15/20 25 Blood pressure diastolic 77 mm Hg 025 Height 63 in 04/15/2025 Weight 198 lbs 04/15/2025 BMI 35.07 kg/m2 04/15/2025 Encounters Encounter Location Date Provider Diagnosis [facility] [address] [facility] [address] [place] [address] 04/15/2025 Kevin Francis Jr Abnormal findings in stool R19.5 Assessments Encounter Date Diagnosis (ICD Code) Assessment Notes Treatment Notes Treatment Clinical Notes Section Notes 04/15/2025 Abnormal findings in stool (ICD-10 - R19.5) Plan Of Treatment Future Test Test Name Order Date COLONOSCOPY 04/15/2025 Next Appt Details Provider Name:Kevin Zach stark Jr, 05/14/2025 10:00:00 AM, [address] [place] [address] , [place], [place], [phone], Progress Notes * ELDONMANDY PDOB:1945 (79 yo F)Acc No.[id number]:04/15/2025 Progress Notes Patient: MANDY LAROSE Provider: Ken Francis MD :1945 A ge:79 Y S ex:Female Date:04/15/2025 Address:[address] [place] [id number] Pcp:TESHA TORRES PA-C Subjective: * Chief Complaints: * 1 . PATIENT PRESENTS TODAY FOR POSITIVE COLOGUARD. * Medical History: H ypertension, Denies ID,DM,CVA,Lung disease,renal disease, Thyroid. * Surgical History: w hipple surgery [facility] , knee repalcement x2 . * Family History: F ather: . M other: . denies any history of any colorectal cancer and or polyps. * Social History: T obacco Use: T obacco Use/Smoking A re you a: nonsmoker. D rugs/Alcohol: A lcohol Screen D id you have a drink containing alcohol in the past year? Y es, H ow often did you have 6 or more drinks on one occasion in the past year? N ever (0 point), H ow many drinks did you have on a typical day when you were drinking in the past year? 1 or 2 drinks (0 point), H ow often did you have a drink containing alcohol in the past year? M onthly or less (1 point), P oints 1 , I nterpretation N egative. M iscellaneous: M arital status: . 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 D rug/Alcohol: A EMILY-C (Standard) D id you have a drink containing alcohol in the past year? N o,?Points 0 , I nterpretation N egative. * Medications: T aking Enzyme , Taking Daily Vitamin , Taking Vitamin D , Taking Furosemide 40 MG Tablet 1 tablet Orally Once a day , Taking Atenolol 100 MG Tablet Oral , Taking Rosuvastatin Calcium 5 MG Tablet Oral , Taking Levothyroxine Sodium 25 MCG Tablet Oral , Taking Losartan Potassium 100 MG Tablet Oral , Taking Clindamycin HCl 300 MG Capsule Oral , Taking Aspirin , Discontinued MoviPrep 100 GM Solution Reconstituted as directed before colonoscopy Orally , Medication List reviewed and reconciled with the patient * Allergies: S HELLFISH, Penicillin, Hydrochlorothiazide. Objective: * Vitals: W t:198lbs, Ht: 63 in, BMI: 35.07 Index, BP:111/77mm Hg, Wt-k.81. Assessment: * Assessment: 1. A bnormal findings in stool - R19.5 (Primary) Plan: * Treatment: * Preventive Medicine: Counseling: C are goal follow-up plan: A tj Normal BMI Follow-up G iving encouragement to exercise, B ID management provided Y es. Urinary Incontinence: U rinary Incontinence A ssessment: A bsent, P fatoumata of care documented: N o, reason not specified. Screenings: F all Risk Screening F all Risk Assessment: N o falls in the past year, S creening: N o falls in the past year, A ssessment: N ot performed, no reason specified, P fatoumata of Care: N ot documented, no reason specified. * * The named appointment provid er may or may not be the originator of this progress note, and it is not deemed complete until electronically signed by the appointment provider. Sign off status: Pending * Provider: Ken Francis MD Date: 0 04/15/2025 Generated for Pat high/Bora/Rachaelitting on: 04/20/2025 12:54 PM EDT
--- OUTSIDE RECORDS SUMMARY | 2025-04-20 12:53 | XMS_ITS | Encounter Summary ---
Author Organization [facility], Address [address] [place] [address] Phone Care Team Providers Care Customer Management Specialist Name Role Phone Etta Sauer MD Primary Care Provider [phone] Encounter Details Date Type Department Care Team (Late st Contact Info) Description 10/11/2021 Documentation Only [facility], [address] [place] [address] Irene Dos Santos [address] [place] [phone] Social History Tobacco Use Types Packs/Day Years [...] on filedocumented in this encounter Care Teams Customer Management Specialist Relationship Specialty Start Date End Date Etta Sauer MD [facility] [place] [address] PCP - General Internal Medicine 10/28/20 documented as of this encounter
--- OUTSIDE RECORDS SUMMARY | 2025-04-20 12:54 | XMS_ITS | Patient Health Record ---
Author [facility] [place] Address [address] [place] [address] Care Team Providers Care Care Program Resident Name Role Phone Camacho BELL, [facility] Primary Care Provider Anita Damon Unavailable [phone] Allergies Allergen (clinical drug ingredient) Drug/Non Drug [...] Inc [address] [place] [address] [id number] Eufemia Jimenez Self - patient is the insured [employer] [address] [place] [address] [id number] Eufemia Jimenez Self - patient is the insured Medical (General) History Medical History History ICD Code Anxiety Arthritis Cataracts High blood pressure Poor circulation raynauds disease Measles Mumps Chicken pox Joint implants/screws Bone implants/screws Surgical History Surgery Date(Month/Year) whipple Surgery 09/05/2004 knee replacement 06/2014 vein surgery both legs 06/2020,08/2020
== END 2025-04-20 11:22 | disposition home or self-care (01) ==
LOC: HO.HMGCLDS 11:21
PROVIDERS: PCP Physician Assistant Medical; Visit Provider Physician Assistant Medical
DX: Z00.00 Encounter for general adult medical examination without abnormal findings (principal)
CPT/HCPCS: 36415; 84443

== ENCOUNTER 2025-05-05 15:04 | Outpatient (AMB) | payer MEDICARE, SELFPAY ==
--- OUTSIDE RECORDS SUMMARY | 2024-06-12 05:10 | XMS_ITS ---
Author Organization Total [employer] [facility] Address [address] [facility] [address] [place] [address] Care Team Providers Care Cyber Security Name Role Phone QUOC Lucero, KHLOE Primary Care Provider Unavail Janel Pina Unavailable [phone] REASON FOR VISIT INTERVAL LR MC Encounters Encounter Location Date Provider Diagnosis [facility] [employer] [address] [place] [address] 06/12/2024 Janel Bryant Plan Of Treatment Next Appt Details Provider Name:Janel maurice, 07/01/2025 11:00:00 AM, [address] [place] [address], [address], [place], [address], Progress Notes * FALLON COLÓNOB:1945 (7 0 yo F)Acc No.[id number]:06/12/2024 PROGRESS NOTES Patient: MANDY LAROSE Appointment Provider: Omkar Bryant M.D. :1945 A ge:78 Y S ex:Female Date:06/12/2024 Address:[address] [place], [place] [phone] Pcp:KHLOE KUMARI M.D. Subjective: * Chief Complaints: * 1 . INTERVAL LR MC. * Medical History: Objective: * Vitals: Assessment: Plan: * Treatment: * Images: Billing Information: * Visit Code: * Procedure Codes: * Electronic signature of Binta Bryant MD on 05/05/2025 at 05:11 PM EDT Sign off status: Pending * Appointment Provider: Omkar MarionD. Date: 1 Generated for Pat high/Bora/Bonnie on: 0 05/05/2025 05:11 PM EDT
--- OUTSIDE RECORDS SUMMARY | 2025-04-15 10:55 | XMS_ITS ---
Author Organization [facility] Address [address] [place] [address] Care Team Providers Care A And P Technician Name Role Phone TESHA TORRES PA-C Primary [...] 04/15/2025 Encounters Encounter Location Date Provider Diagnosis [facility] [address] [facility] [address] [place] [address] 04/15/2025 Kevin Francis Jr Abnormal findings in stool R19.5 Assessments Encounter Date Diagnosis (ICD Code) Assessment Notes Treatment Notes Treatment Clinical Notes Section Notes 04/15/2025 Abnormal findings in stool (ICD-10 - R19.5) Plan Of Treatment Future Test Test Name Order Date COLONOSCOPY 04/15/2025 Next Appt Details Provider Name:Kevin Zach stark Jr, 05/14/2025 09:10:00 AM, [address] [place] [address] , [place], [place], [phone], Progress Notes * ELDONMANDY PDOB:1945 (79 yo F)Acc No.[id number]:04/15/2025 Progress Notes Patient: MANDY LAROSE Provider: Ken Francis MD :1945 A ge:79 Y S ex:Female Date:04/15/2025 Address:[address] [place], [place] [id number] Pcp:TESHA TORRES PA-C Subjective: * Chief Complaints: [...] M iscellaneous: M arital status: . 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 D rug/Alcohol: A EMILY-C (Standard) [...] 0 04/15/2025 Generated for Pat high/Bora/Rachaelitting on: 0 05/05/2025 05:12 PM EDT
[2025-05-05 15:05] VITALS: BP 138/74; PULSE 73; O2SAT 96; BMI 35.3
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
--- OUTSIDE RECORDS SUMMARY | 2025-05-05 17:12 | XMS_ITS | Clinical Summary ---
Author Organization [facility], Address [address] [place] [address] [place] [address] Phone Care Team Providers Care Website Programmer Name Role Phone Etta Sauer MD Primary Care Provider [phone] Allergies Active Allergy Reactions Criticality Noted Date [...] of 1 - PCV) 1994 Influenza Vaccine (#1) 2025 Hepatitis B Vaccine Aged Out No longe r eligible based on patient's age to complete this topic Insurance Medicare [facility] Care Teams Website Programmer Relationship Specialty Start Date End Date Etta Sauer MD [facility] [place] [address] PCP - General Internal Medicine 10/28/20
--- OUTSIDE RECORDS SUMMARY | 2025-05-05 17:12 | XMS_ITS | Patient Health Record ---
Author [facility] ludivina [place] Address [address] [address] Care Team Providers Care Compliance Vice President Name Role Phone Camacho BELL, [facility] Primary Care Provider Anita Damon Unavailable [phone] Allergies Allergen (clinical drug ingredient) Drug/Non Drug [...] Inc [address] [place] [address] [id number] Eufemia Jimenez Self - patient is the insured [employer] [address] [place] [address] [id number] Efuemia Jimenez Self - patient is the insured Medical (General) History Medical History History ICD Code Anxiety Arthritis Cataracts High blood pressure Poor circulation raynauds disease Measles Mumps Chicken pox Joint implants/screws Bone implants/screws Surgical History Surgery Date(Month/Year) whipple Surgery 09/05/2004 knee replacement 06/2014 vein surgery both legs 06/2020,08/2020
--- OUTSIDE RECORDS SUMMARY | 2025-05-05 17:12 | XMS_ITS | Patient Health Record ---
Author Organization [facility] Address [address] [place] [address] Care Team Providers Care Tufting Creeler Name Role Phone TESHA TORRES PA-C Primary [...] Duration) Notes Start Date End Date Status Rosuvastatin Calcium 5 MG Oral for 90 Days Active Atenolol 100 MG Oral for 90 Days Active Losartan Potassium 100 MG Oral for 90 Days Active Levothyroxine Sodium 25 MCG Oral for 42 Days Active Aspirin Active Clindamycin HCl 300 MG Oral for 6 Days Active Enzyme Active Daily Vitamin Active Furosemide 40 MG 1 tablet Orally Once a day Active Vitamin D Active Social History AUDIT-C (Standard) Question Answer Notes Did you have a drink containing alcohol in the p ast year? No Points 0 Interpretation Negative Problems Problem Type SNOMED Code ICD Code Onset Dates Problem Status W/U Status Risk Notes Problem Colon cancer screening (800077340) Colon cancer screening (V76.51) Active confirmed Problem Already on aspirin (654298161) senior care current use of aspirin (V58.66) Active confirmed Vital Signs Blood pressure diastolic 77 mm Hg 04/15/2025 Height 63 in 04/15/2025 Blood pressure systolic 111 mm Hg 04/15/2025 Weight 198 lbs 04/15/2025 BMI 35.07 kg/m2 04/15/2025 Encounters Encounter Location Date Provider Diagnosis [facility] [address] [place] [address] 04/15/2025 Kevin Francis Jr Abnormal findings in stool R19.5 Assessments Encounter Date Diagnosis (ICD Code) Assessment Notes Treatment Notes Treatment Clinical Notes Section Notes 04/15/2025 Abnormal findings in stool (ICD-10 - R19.5) Plan Of Treatment Future Test Test Name Order Date COLONOSCOPY 06/17/2013 COLONOSCOPY 04/15/2025 Next Appt Details Provider Name:Kevin stark Jr, 05/14/2025 09:10:00 AM, [address] [place] [address] , [place], [place], [phone], Insurance Providers Payer Name Payer Address Payer Phone Subscriber Number Group Number Insured Name Patient Relationship to Insured Coverage Start Date Coverage End Date [facility] [address] [place] [address] [phone] [id number] MANDY COLÓN Self - patient is the insured Medical (General) History Medical History History ICD Code hypertension Denies IA,DM,CVA,Lung disease,renal dise ase thyroid Surgical History Surgery Date(Month/Year) knee repalcement x2 whipple surgery [facility]
--- OUTSIDE RECORDS SUMMARY | 2025-05-05 17:12 | XMS_ITS | Patient Health Record ---
Author Organization [facility] Address [address] [place] [address] Care Team Providers Care Sales Order Administrator Name Role Phone KHLOE KUMARI M.D. Primary Care Provider Unavail able Janel Bryant Unavailable [phone] Allergies Allergen (clinical drug ingredient) Drug/Non Drug Allergy documented on EMR Reaction Allergy Type Onset Date Status hydrochlorothiazide Hydrochlorothiazide Skin Rash D rug Allergy Active Penicillin Unknown Drug Allergy Active Shellfish (FN) Shellfish-derived Products Throat Swelling Drug Allergy Active Reason For Referral No Information Medications Medication SIG (Take, Route, Frequency, Duration) Notes Start Date End Date Status Atenolol 100 MG Oral; Duration: 90 Active Multivitamins 1 tab Orally Daily Active Losartan Potassium 100 MG Oral; Duration: 30 Active Aspirin EC 81MG 1 ORAL daily; Duration: -3 012 Active Rosuvastatin Calcium 5 MG Oral; Duration: 90 Active Vitamin D 2000 UNIT 1 [...] Status Risk Notes Problem Frequency of micturition (615409933) Frequency of micturition (R35.0) Active confirmed Problem Postmenopausal atrophic vaginitis (55347836) Postmenopausal atrophic vaginitis (N95.2) Active confirmed Problem Incomplete uterovaginal prolapse (464702604) Incomplete uterovaginal prolapse (N81.2) Active confirmed Problem Herniation of rectum into vagina (585771180) Rectocele (N81.6) Active confirmed Problem Cystocele (946160129) Cystocele, unspecified (N81.10) Active confirmed Problem Screening for malignant neoplasm of breast (720832042) Encounter for screening mammogram for malignant neoplasm of breast (Z12.31) Active confirmed Problem SI - Stress incontinence (12905182) Stress incontinence (female) (male) (N39.3) Active confirmed Problem Malignant neoplasm of [place] (255749712) 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) Active confirmed Major Problem Hyperlipidemia (25246212) Other and unspecified hyperlipidemia (272.4) Active confirmed Major Problem Nonsenile cataract (480825285) Unspecified nonsenile cataract (366.00) Active confirmed Major Problem Benign essential hypertension (9813883) Essential hypertension, benign (401.1) Active confirmed Major Problem Menopausal symptom (01118625) Symptomatic menopausal or female climacteric states (627.2) Active confirmed Major Problem Osteoarthritis (791747929) Osteoarthrosis, unspecified whether generalized or localized, unspecified site (715.90) Active confirmed Major Problem Gynecological examination normal (518199515118893) Routine gynecological examination (V72.31) Active confirmed Problem Exercises teaching, guidance, and counseling (131871494) Exercise counseling (V65.41) Active confirmed Diag Problem Screening for malignant neoplasm of colon (580967263) Special screening for malignant neoplasms, colon (V76.51) Active confirmed Major Vital Signs Temperature 97.4 degrees Fahrenheit 06/26/2024 Blood pressure diastolic 86 mm Hg 06/26/2024 Height 62.5 in 06/26/2024 Blood pressure systolic 122 mm Hg 06/26/2024 Weight 213 lbs 06/26/2024 BMI 38.33 kg/m2 06/26/2024 Encounters Encounter Location Date Provider Diagnosis Total [address] [address] 06/26/2024 Janel Bryant Encounter for gynecological examination [...] Screening 06/11/2023 Next Appt Details Provider Name:Janel Francois johnalesia, 07/01/2025 11:00:00 AM, [address], [address], [place], [address], Insurance Providers Payer Name Payer Address Payer Phone Subscriber Number Group Number Insured Name Patient Relationship to Insured Coverage Start Date Coverage End Date MEDICARE [address] [place] [id number] MANDY COLÓN Self - patient is the insured MED[employer] [address] [place] [address] [id number] [phone] MANDY COLÓN Self - patient [...] of breast R92.1 Surgical History Surgery Date(Month/Year) [place] Teeth Tonsillectomy Whipple Surgery Left Knee Replacement Right Knee & Ankle Surgery Colonoscopy Right Cataracts Surgery Vascular Surgery Left Leg, Vein Strippin g Hospitalization History Reason Date(Month/Year) See Surgical Hx 2 Vaginal Deliveries
--- OUTSIDE RECORDS SUMMARY | 2025-05-05 17:12 | XMS_ITS | Encounter Summary ---
Author Organization [facility], Address [address] [place] [address] Phone Care Team Providers Care Safe And Vault Service Mechanic Name Role Phone Etta Sauer MD Primary Care Provider [phone] Encounter Details Date Type Department Care Team (Late st Contact Info) Description 10/11/2021 Documentation Only [facility], [address] [place] [address] Irene Dos [address] [place] [phone] Social History Tobacco Use Types Packs/Day Years [...] on filedocumented in this encounter Care Teams Safe And Vault Service Mechanic Relationship Specialty Start Date End Date Etta Sauer MD [facility] [place] [address] PCP - General Internal Medicine 10/28/20 documented as of this encounter
== END 2025-05-05 16:18 | disposition home or self-care (01) ==
LOC: HO.ENCR 15:04
PROVIDERS: Visit Provider Student in an Organized Health Care Education/Training Program
DX: E03.8 Other specified hypothyroidism (principal); E04.2 Nontoxic multinodular goiter
CPT/HCPCS: 99204

== ENCOUNTER → 2025-05-05 15:04 | Outpatient (BNVA) | payer MEDICARE, SELFPAY | PROVIDERS: Visit Provider Student in an Organized Health Care Education/Training Program | DX: E04.2 Nontoxic multinodular goiter (principal); E03.8 Other specified hypothyroidism | CPT/HCPCS: 99202 ==

== ENCOUNTER 2025-05-07 09:59 | Outpatient (REF) | payer MEDICARE, SELFPAY ==
--- OUTSIDE RECORDS SUMMARY | 2024-06-12 05:10 | XMS_ITS ---
Author Organization Total [facility] Address [address] [facility] [address] [place] [address] Care Team Providers Care Precinct Commanding Officer Name Role Phone QUOC Lucero, KHLOE Primary Care Provider Unavail Janel Pina Unavailable [phone] REASON FOR VISIT INTERVAL LR MC Encounters Encounter Location Date Provider Diagnosis [facility] [address] [place] [address] 06/12/2024 Janel Bryant Plan Of Treatment Next Appt Details Provider Name:Janel maurice, 07/01/2025 11:00:00 AM, [address] [place] [address], [facility] [address], [place], [address], Progress Notes * FALLON COLÓNOB:1945 ([age] yo F)Acc No.[id number]:06/12/2024 PROGRESS NOTES Patient: MANDY LAROSE Appointment Provider: Omkar Bryant M.D. :1945 A ge:78 Y S ex:Female Date:06/12/2024 Address:[address] [place], [place] [id number] Pcp:KHLOE KUMARI M.D. Subjective: * Chief Complaints: * 1 . INTERVAL LR MC. * Medical History: Objective: * Vitals: Assessment: Plan: * Treatment: * Images: Billing Information: * Visit Code: * Procedure Codes: * Electronic signature of Binta Bryant MD on 05/07/2025 at 10:53 AM EDT Sign off status: Pending * Appointment Provider: Omkar MarionD. Date: 1 Generated for Pat high/Bora/Bonnie on: 0 05/07/2025 10:53 AM EDT
--- NOTE | ~2025-05-07 | US_ITS ---
EXAMINATION: US TRIPLEX LOWER EXTREMITY, LEFT CLINICAL INFORMATION: I83.12 - Varicose veins of left lower extremity with inflammation COMPARISON: May 25, 2020 TECHNIQUE: Color flow triplex imaging and compression Doppler was performed to evaluate the left deep and the superficial systems bilaterally. To evaluate the superficial system, the examination was performed in the upright position. Color-flow Doppler ultrasound and compression ultrasound were utilized. In addition, maneuvers were utilized to demonstrate reflux. FINDINGS: 1. DEEP VENOUS ULTRASOUND OF THE LEFT LOWER EXTREMITY: Common Femoral Vein: Compressible, normal respiratory variation and augmented flow. Femoral Vein: Compressible, normal color flow and augmentation. Popliteal Vein: Compressible, normal augmentation. Deep Reflux: There is no evidence of reflux in the deep system in either the common femoral vein, superficial femoral or the popliteal vein. DEEP VENOUS ULTRASOUND OF THE LEFT LOWER EXTREMITY: Common Femoral Vein: Compressible, normal respiratory variation and augmented flow. Femoral Vein: Compressible, normal color flow and augmentation. Popliteal Vein: Compressible, normal augmentation. Deep Reflux: There is no evidence of reflux in the deep system in either the common femoral vein, superficial femoral or the popliteal vein. SUPERFICIAL ULTRASOUND WITH DOPPLER OF LEFT LOWER EXTREMITY: GREAT SAPHENOUS VEIN: Saphenofemoral Junction: 1.0 cm; Reflux: 0 ms Proximal Thigh: 0.5 cm; Reflux: 0 ms Mid Thigh: Post venoseal Distal Thigh: Post venoseal At Knee:Post venoseal Below Knee/Proximl calf: 0.1 cm; Reflux: 0 ms Mid Calf: 0.2 cm; Reflux: > 3200 ms Distal Calf/Ankle: 0.2 cm; Reflux: 2200 ms Lateral / Medial accessory GREAT SAPHENOUS VEIN: None demonstrated SMALL SAPHENOUS VEIN: Saphenopopliteal Junction: 0.2 cm; Reflux: 0 ms Mid calf: 0.1 cm; Reflux: 0 ms Distal calf: 0.1 cm; Reflux: 0 ms VEIN OF GIACOMINI: Size: NA Reflux: NA PERFORATORS: Location: Small saphenous vein, mid calf Size: 0.3 cm Reflux: 0 ms Location: Greater saphenous vein into varicosity, mid calf Size: 0.2 cm Reflux: 0 ms Location: Greater saphenous vein, distal calf Size: 0.2 cm Reflux: 0 ms VARICOSITIES > 3mm: Location: Greater saphenous vein, mid thigh Size: 0.4 cm Reflux: 1750 ms US/US venous duplex LE LT IMPRESSION: Left: There is venous incompetence in the greater saphenous vein in the mid calf and ankle and reflux involving a varicosity of the greater saphenous vein, midthigh. Post VenoSeal of the left greater saphenous vein between the mid thigh and knee. Electronically signed by: Michael Valdivia MD 05/07/2025 12:43 PM EDT
--- OUTSIDE RECORDS SUMMARY | 2025-05-07 10:53 | XMS_ITS | Patient Health Record ---
Author Organization [facility] [place]ivina [place] Address [address] [place] [address] Care Team Providers Care Mental Health Nurse Practitioner Name Role Phone Camacho BELL, [facility] Primary Care Provider Anita Damon Unavailable [phone] Allergies Allergen (clinical drug ingredient) Drug/Non Drug [...] Inc [address] [place] [address] [id number] Eufemia Jimenez Self - patient is the insured [employer] [address] [place] [address] [phone] [id number] Eufemia Jimenez Self - patient is the insured Medical (General) History Medical History History ICD Code Anxiety Arthritis Cataracts High blood pressure Poor circulation raynauds disease Measles Mumps Chicken pox Joint implants/screws Bone implants/screws Surgical History Surgery Date(Month/Year) whipple Surgery 09/05/2004 knee replacement 06/2014 vein surgery both legs 06/2020,08/2020
--- OUTSIDE RECORDS SUMMARY | 2025-05-07 10:53 | XMS_ITS | Clinical Summary ---
Author Organization [facility], Address [address] [place] [address] [place] [address] Phone Care Team Providers Care Hydroelectric Plant Electrician Name Role Phone Etta Sauer MD Primary Care Provider [phone] Allergies Active Allergy Reactions Criticality Noted Date [...] age to complete this topic Insurance Medicare [facility] Care Teams Hydroelectric Plant Electrician Relationship Specialty Start Date End Date Etta Sauer MD [facility] [place] [address] PCP - General Internal Medicine 10/28/20
--- OUTSIDE RECORDS SUMMARY | 2025-05-07 10:53 | XMS_ITS | Encounter Summary ---
Author Organization [facility], Address [address] [place] [address] Phone Care Team Providers Care Money Room Supervisor Name Role Phone Etta Sauer MD Primary Care Provider Encounter Details Date Type Department Care Team (Late st Contact Info) Description 10/11/2021 Documentation Only [facility], [address] [place] [address] Irene Dos Santos [address] [place] [phone] Social History Tobacco Use Types Packs/Day Years [...] on filedocumented in this encounter Care Teams Money Room Supervisor Relationship Specialty Start Date End Date Etta Sauer MD [facility] [place] [address] PCP - General Internal Medicine 10/28/20 documented as of this encounter
--- OUTSIDE RECORDS SUMMARY | 2025-05-07 10:53 | XMS_ITS | Patient Health Record ---
Author Organization [facility] Address [address] [place] [address] Care Team Providers Care Animal Control Specialist Name Role Phone KHLOE KUMARI M.D. Primary Care Provider Unavail able Janel Bryant Unavailable [phone] Allergies Allergen (clinical drug ingredient) Drug/Non Drug [...] Status Risk Notes Problem Frequency of micturition (065761611) Frequency of micturition (R35.0) Active confirmed Problem Postmenopausal atrophic vaginitis (05556325) Postmenopausal atrophic vaginitis (N95.2) Active confirmed Problem Incomplete uterovaginal prolapse (148421394) Incomplete uterovaginal prolapse (N81.2) Active confirmed Problem Herniation of rectum into vagina (298339520) Rectocele (N81.6) Active confirmed Problem Cystocele (398732223) Cystocele, unspecified (N81.10) Active confirmed Problem Screening for malignant neoplasm of breast (124412270) Encounter for screening mammogram for malignant neoplasm of breast (Z12.31) Active confirmed Problem SI - Stress incontinence (26136387) Stress incontinence (female) (male) (N39.3) Active confirmed Problem Malignant neoplasm of Islets of [place]anger[place] (319737441) 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) Active confirmed Major Problem Hyperlipidemia (18830542) Other and unspecified hyperlipidemia (272.4) Active confirmed Major Problem Nonsenile cataract (951858186) Unspecified nonsenile cataract (366.00) Active confirmed Major Problem Benign essential hypertension (1985124) Essential hypertension, benign (401.1) Active confirmed Major Problem Menopausal symptom (44799494) Symptomatic menopausal or female climacteric states (627.2) Active confirmed Major Problem Osteoarthritis (853006681) Osteoarthrosis, unspecified whether generalized or localized, unspecified site (715.90) Active confirmed Major Problem Gynecological examination normal (962132294413108) Routine gynecological examination (V72.31) Active confirmed Problem Exercises teaching, guidance, and counseling (894866581) Exercise counseling (V65.41) Active confirmed Diag Problem Screening for malignant neoplasm of colon (674650953) Special screening for malignant neoplasms, colon (V76.51) Active confirmed Major Vital Signs Temperature 97.4 degrees Fahrenheit 06/26/2024 Blood pressure diastolic 86 mm Hg 06/26/2024 Height 62.5 in 06/26/2024 Blood pressure systolic 122 mm Hg 06/26/2024 Weight 213 lbs 06/26/2024 BMI 38.33 kg/m2 06/26/2024 Encounters Encounter Location Date Provider Diagnosis Total [address] [address] 06/26/2024 Janel Bryant Encounter for gynecological examination [...] Name:Janel Francois johnalesia, 07/01/2025 11:00:00 AM, [address], [address], [place], [address], Insurance Providers Payer Name Payer Address Payer Phone Subscriber Number Group Number Insured Name Patient Relationship to Insured Coverage Start Date Coverage End Date MEDICARE [address] [place] [id number] MANDY COLÓN Self - patient is the insured MEDEX [address] [place] [address] [id number] MANDY COLÓN Self - patient [...] of breast R92.1 Surgical History Surgery Date(Month/Year) [place] Teeth Tonsillectomy Whipple Surgery Left Knee Replacement Right Knee & Ankle Surgery Colonoscopy Right Cataracts Surgery Vascular Surgery Left Leg, Vein Strippin g Hospitalization History Reason Date(Month/Year) See Surgical Hx 2 Vaginal Deliveries
--- OUTSIDE RECORDS SUMMARY | 2025-05-07 10:54 | XMS_ITS | Patient Health Record ---
Author Organization [facility] Address [address] [place] [address] Care Team Providers Care Nuclear Chemistry Technician Name Role Phone TESHA TORRES PA-C [...] Status Risk Notes Problem Colon cancer screening (366522028) Colon cancer screening (V76.51) Active confirmed Problem Already on aspirin (920333309) long-term current use of aspirin (V58.66) Active confirmed Vital Signs Blood pressure diastolic 77 mm Hg 04/15/2025 Height 63 in 04/15/2025 Blood pressure systolic 111 mm Hg 04/15/2025 Weight 198 lbs 04/15/2025 BMI 35.07 kg/m2 04/15/2025 Encounters Encounter Location Date Provider Diagnosis [facility] [address] [place] [address] 04/15/2025 Kevin Francis Jr Abnormal findings in stool R19.5 Assessments Encounter Date Diagnosis (ICD Code) Assessment Notes Treatment Notes Treatment Clinical Notes Section Notes 04/15/2025 Abnormal findings in stool (ICD-10 - R19.5) We discussed stool DNA testing today. We discussed the 8 to 13% false positive and false negative rates. We discussed findings at time of colonoscopy in patients who have positive stool DNA tests. She is aware of risks and benefits of colonoscopy and agrees to proceed. She is advised to stop aspirin 1 week before the procedure and furosemide the day before the procedure. Plan Of Treatment Future Test Test Name Order Date COLONOSCOPY 06/17/2013 COLONOSCOPY 04/15/2025 Next Appt Details Provider Name:Kevin stark Jr, 05/14/2025 09:10:00 AM, [address] [place] [address] , [place], [place], [phone], Insurance Providers Payer Name Payer Address Payer Phone Subscriber Number Group Number Insured Name Patient Relationship to Insured Coverage Start Date Coverage End Date [facility] [address] [place] [address] [phone] [id number] MANDY COLÓN Self - patient is the insured Medical (General) History Medical History History ICD Code hypertension Hyperlipidemia Aortic stenosis, mild Hypothyroidism Colonoscopy 2013, normal including biops ies Surgical History Surgery Date(Month/Year) knee repalcement x2 Whipple surgery for pancreatic insulinom a
== END 2025-05-07 10:00 | disposition home or self-care (01) ==
LOC: HO.US 09:59
PROVIDERS: PCP Physician Assistant Medical; Visit Provider Surgery Vascular Surgery
DX: I83.12 Varicose veins of left lower extremity with inflammation (principal)
CPT/HCPCS: 93971

== ENCOUNTER → 2025-05-07 10:01 | Outpatient (BNV) | payer MEDICARE, SELFPAY | PROVIDERS: PCP Physician Assistant Medical; Visit Provider Radiology Diagnostic Radiology | DX: I83.12 Varicose veins of left lower extremity with inflammation (principal) | CPT/HCPCS: 93971 ==

== ENCOUNTER 2025-05-12 10:25 | Outpatient (REF) | payer MEDICARE, SELFPAY ==
--- OUTSIDE RECORDS SUMMARY | 2024-06-12 05:10 | XMS_ITS ---
Author Organization Total [employer] [facility] Address [address] [facility] [address] [place] [address] Care Team Providers Care Preparer Samples And Repairs Name Role Phone QUOC Lucero, KHLOE Primary Care Provider Unavail Janel Pina Unavailable [phone] REASON FOR VISIT INTERVAL LR MC Encounters Encounter Location Date Provider Diagnosis [facility] [employer] [address] [place] [address] 06/12/2024 Janel Bryant Plan Of Treatment Next Appt Details Provider Name:Janel maurice, 07/01/2025 11:00:00 AM, [address] [place] [address], [address], [place], [address], Progress Notes * FALLON COLÓNOB:1945 ([age] yo F)Acc No.[id number]:06/12/2024 PROGRESS NOTES Patient: MANDY LAROSE Appointment Provider: Omkar Bryant M.D. :1945 A ge:78 Y S ex:Female Date:06/12/2024 Address:[address] [place], [place] [id number] Pcp:KHLOE KUMARI M.D. Subjective: * Chief Complaints: * 1 . INTERVAL LR MC. * Medical History: Objective: * Vitals: Assessment: Plan: * Treatment: * Images: Billing Information: * Visit Code: * Procedure Codes: * Electronic signature of Binta Bryant MD on 05/12/2025 at 12:39 PM EDT Sign off status: Pending * Appointment Provider: Omkar MarionD. Date: 1 Generated for Pat high/Bora/Bonnie on: 0 05/12/2025 12:39 PM EDT
--- NOTE | 2025-05-12 11:07 | PM.PROC ---
Brief Operative Note Date of procedure: 05/12/25 Pre-op diagnosis: left mid 2.6 cm thyroid nodule FNA biopsy Post-op diagnosis: same Procedure: THYROID FINE NEEDLE ASPIRATION PROCEDURE NOTE ? PROCEDURE PERFORMED: Ultrasound-guided FNA of thyroid nodule ? OPERATORS: Dr. Jessi Claros ? INDICATION: left mid 2.6 cm thyroid nodule ; FNA performed to assess for malignancy ? DESCRIPTION OF PROCEDURE: The indications for FNA (to assess for malignancy) were reviewed with the patient in detail. Potential complications (e.g., bleeding, infection, damage to local structures, absence of clear diagnosis after FNA) were reviewed. Alternatives to FNA including conservative observation or surgery were described. The patient understood and agreed to proceed. This was documented by the signing of the written informed consent form. A time-out was performed to confirm the patient's identity and the site of planned FNA. The nodule of interest was identified using ultrasound (14 MHz linear array probe). The site of FNA was then draped in the usual fashion and carefully cleaned and prepared using alcohol swabs. The skin at the previously-identified site of needle insertion was iced and sprayed with numbing spray. Under ultrasound guidance, _5_ passes were performed using a 1.5-inch, 25-gauge needle, and sample was obtained via capillary action. The needle tip was clearly visualized to be within the nodule at the time of sampling for 5__ of _5_ passes The patient tolerated the procedure well. There were no immediate complications. A small adhesive bandage was applied, and the patient was advised to take acetaminophen (rather than NSAIDs) for any discomfort and to report any signs of inflammation/infection or marked swelling. IMPRESSION: Technically successful ultrasound-guided fine needle aspiration of left mid 2.6 cm thyroid nodule . PLAN: The patient was advised that I will provide follow-up regarding the cytology result and any subsequent plans. Jessi Claros MD Endocrinology Attending Condition: stable Disposition: same day
--- OUTSIDE RECORDS SUMMARY | 2025-05-12 12:39 | XMS_ITS | Encounter Summary ---
Author Organization [facility], Address [address] [place] [address] Phone Care Team Providers Care Continuum Of Care Manager Name Role Phone Etta Sauer MD Primary Care Provider [phone] Encounter Details Date Type Department Care Team (Late st Contact Info) Description 10/11/2021 Documentation Only [facility], [address] [place] [address] Irene Dos Santos [address] [place] [id number] Social History Tobacco Use Types Packs/Day Years [...] on filedocumented in this encounter Care Teams Continuum Of Care Manager Relationship Specialty Start Date End Date Etta Sauer MD [facility] [place] [address] PCP - General Internal Medicine 10/28/20 documented as of this encounter
--- OUTSIDE RECORDS SUMMARY | 2025-05-12 12:40 | XMS_ITS | Patient Health Record ---
Author Organization [facility] Address [address] [place] [address] Care Team Providers Care Assault Amphibious Vehicle Crewman Name Role Phone KHLOE KUMARI M.D. Primary Care Provider Unavail able Janel Bryant Unavailable [phone] Allergies Allergen (clinical drug ingredient) Drug/Non Drug [...] Status Risk Notes Problem Frequency of micturition (910780348) Frequency of micturition (R35.0) Active confirmed Problem Postmenopausal atrophic vaginitis (20367064) Postmenopausal atrophic vaginitis (N95.2) Active confirmed Problem Incomplete uterovaginal prolapse (216043935) Incomplete uterovaginal prolapse (N81.2) Active confirmed Problem Herniation of rectum into vagina (486858599) Rectocele (N81.6) Active confirmed Problem Cystocele (353603302) Cystocele, unspecified (N81.10) Active confirmed Problem Screening for malignant neoplasm of breast (279311962) Encounter for screening mammogram for malignant neoplasm of breast (Z12.31) Active confirmed Problem SI - Stress incontinence (07315785) Stress incontinence (female) (male) (N39.3) Active confirmed Problem Malignant neoplasm of Islets of [place] (610618697) 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) Active confirmed Major Problem Hyperlipidemia (46395711) Other and unspecified hyperlipidemia (272.4) Active confirmed Major Problem Nonsenile cataract (184532442) Unspecified nonsenile cataract (366.00) Active confirmed Major Problem Benign essential hypertension (5597824) Essential hypertension, benign (401.1) Active confirmed Major Problem Menopausal symptom (81642544) Symptomatic menopausal or female climacteric states (627.2) Active confirmed Major Problem Osteoarthritis (477613912) Osteoarthrosis, unspecified whether generalized or localized, unspecified site (715.90) Active confirmed Major Problem Gynecological examination normal (925739980958153) Routine gynecological examination (V72.31) Active confirmed Problem Exercises teaching, guidance, and counseling (515644063) Exercise counseling (V65.41) Active confirmed Diag Problem Screening for malignant neoplasm of colon (896199119) Special screening for malignant neoplasms, colon (V76.51) Active confirmed Major Vital Signs Temperature 97.4 degrees Fahrenheit 06/26/2024 Blood pressure diastolic 86 mm Hg 06/26/2024 Height 62.5 in 06/26/2024 Blood pressure systolic 122 mm Hg 06/26/2024 Weight 213 lbs 06/26/2024 BMI 38.33 kg/m2 06/26/2024 Encounters Encounter Location Date Provider Diagnosis Total [address] [address] 06/26/2024 Janel Bryant Encounter for gynecological examination [...] Name:Janel Francois johnalesia, 07/01/2025 11:00:00 AM, [address], [address], [place], [address], Insurance Providers Payer Name Payer Address Payer Phone Subscriber Number Group Number Insured Name Patient Relationship to Insured Coverage Start Date Coverage End Date MEDICARE [address] [place] [id number] MANDY COLÓN Self - patient is the insured MEDEX [address] [place] [address] [id number] MANDY COLÓN Self - patient [...] of breast R92.1 Surgical History Surgery Date(Month/Year) [place] Teeth Tonsillectomy Whipple Surgery Left Knee Replacement Right Knee & Ankle Surgery Colonoscopy Right Cataracts Surgery Vascular Surgery Left Leg, Vein Strippin g Hospitalization History Reason Date(Month/Year) See Surgical Hx 2 Vaginal Deliveries
--- OUTSIDE RECORDS SUMMARY | 2025-05-12 12:40 | XMS_ITS | Clinical Summary ---
Author Organization [facility], Address [address] [place] [address] [place] [address] Phone Care Team Providers Care Superintendent Police Name Role Phone Etta Sauer MD Primary Care Provider [phone] Allergies Active Allergy Reactions Criticality Noted Date [...] age to complete this topic Insurance Medicare [facility] Care Teams Superintendent Police Relationship Specialty Start Date End Date Etta Sauer MD [facility] [place] [address] PCP - General Internal Medicine 10/28/20
--- OUTSIDE RECORDS SUMMARY | 2025-05-12 12:40 | XMS_ITS | Patient Health Record ---
Author Organization [facility] Address [address] [place] [address] Care Team Providers Care Wire Puller Name Role Phone Camacho BELL, [facility] Primary Care Provider Anita Damon Unavailable [phone] Allergies Allergen (clinical drug ingredient) Drug/Non Drug [...] Inc [address] [place] [address] [id number] Eufemia Jimenez Self - patient is the insured [employer] [address] [place] [address] [id number] Eufemia Jimenez Self - patient is the insured Medical (General) History Medical History History ICD Code Anxiety Arthritis Cataracts High blood pressure Poor circulation raynauds disease Measles Mumps Chicken pox Joint implants/screws Bone implants/screws Surgical History Surgery Date(Month/Year) whipple Surgery 09/05/2004 knee replacement 06/2014 vein surgery both legs 06/2020,08/2020
--- OUTSIDE RECORDS SUMMARY | 2025-05-12 12:40 | XMS_ITS | Patient Health Record ---
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 of aspirin (V58.66) Active confirmed Vital Signs Blood pressure diastolic 77 mm Hg 04/15/2025 Height 63 in 04/15/2025 Blood pressure systolic 111 mm Hg 04/15/2025 Weight 198 lbs 04/15/2025 BMI 35.07 kg/m2 04/15/2025 Encounters Encounter Location Date Provider Diagnosis [facility] [address] [place] [address] 04/15/2025 Kevin Francis Jr Abnormal findings in [...] Provider Name:Kevin stark Jr, 05/14/2025 09:10:00 AM, [address] [place] [address] , [place], [place], [phone], Insurance Providers Payer Name Payer Address Payer Phone Subscriber Number Group Number Insured Name Patient Relationship to Insured Coverage Start Date Coverage End Date [facility] [address] [place] [address] [id number] MANDY COLÓN Self - patient is the insured Medical (General) History Medical History History ICD Code hypertension Hyperlipidemia Aortic stenosis, mild Hypothyroidism Colonoscopy 2013, normal including biops ies Surgical History Surgery Date(Month/Year) knee repalcement x2 Whipple surgery for pancreatic insulinom a
== END 2025-05-12 10:26 | disposition home or self-care (01) ==
LOC: HO.US 10:25
PROVIDERS: PCP Physician Assistant Medical; Visit Provider Student in an Organized Health Care Education/Training Program
DX: E04.2 Nontoxic multinodular goiter (principal)
CPT/HCPCS: 10005; 88173

== ENCOUNTER → 2025-05-12 10:25 | Outpatient (BNV) | payer MEDICARE, SELFPAY | PROVIDERS: PCP Physician Assistant Medical; Visit Provider Student in an Organized Health Care Education/Training Program | DX: E04.1 Nontoxic single thyroid nodule (principal) | CPT/HCPCS: 10005 ==

== ENCOUNTER 2025-05-14 06:48 | Day surgery (SDC) | payer MEDICARE, SELFPAY ==
--- OUTSIDE RECORDS SUMMARY | 2024-06-12 05:10 | XMS_ITS ---
Author Organization Total [facility] [facility] Address [address] [facility] [address] [place] [address] Care Team Providers Care Cadd Operator Name Role Phone QUOC Lucero, KHLOE Primary Care Provider Unavail Janel Pina Unavailable [phone] REASON FOR VISIT INTERVAL LR MC Encounters Encounter Location Date Provider Diagnosis [facility] [address] [place] [address] 06/12/2024 Janel Bryant Plan Of Treatment Next Appt Details Provider Name:Janel maurice, 07/01/2025 11:00:00 AM, [address] [place] [address], [address], [place], [address], Progress Notes * FALLON COLÓNOB:1945 (7 0 yo F)Acc No.[id number]:06/12/2024 PROGRESS NOTES Patient: MANDY LAROSE Appointment Provider: Omkar Bryant M.D. :1945 A ge:78 Y S ex:Female Date:06/12/2024 Address:[address] [place], [place] [phone] Pcp:KHLOE KUMARI M.D. Subjective: * Chief Complaints: * 1 . INTERVAL LR MC. * Medical History: Objective: * Vitals: Assessment: Plan: * Treatment: * Images: Billing Information: * Visit Code: * Procedure Codes: * Electronic signature of Binta Bryant MD on 04/16/2025 at 06:53 AM EDT Sign off status: Pending * Appointment Provider: Omkar MarionD. Date: 1 Generated for Pat high/Bora/Bonnie on: 0 04/16/2025 06:53 AM EDT
--- OUTSIDE RECORDS SUMMARY | 2025-04-15 10:55 | XMS_ITS ---
Author Organization [facility] Address [address] [place] [address] Care Team Providers Care Stencil Cutter Machine Name Role Phone TESHA TORRES PA-C Primary Care Provider Kevin Matamoros Jr Unavailable Allergies Allergen (clinical drug ingredient) [...] 04/15/2025 Encounters Encounter Location Date Provider Diagnosis [facility] [address] [facility] [address] [place] [address] 04/15/2025 Kevin Francis Jr Abnormal findings in stool R19.5 Assessments Encounter Date Diagnosis (ICD Code) Assessment Notes Treatment Notes Treatment Clinical Notes Section Notes 04/15/2025 Abnormal findings in stool (ICD-10 - R19.5) Plan Of Treatment Future Test Test Name Order Date COLONOSCOPY 04/15/2025 Next Appt Details Provider Name:Kevin Zach stark Jr, 05/14/2025 10:00:00 AM, [address] [place] [address] , [place], [place], [id number], Progress Notes * ELDONMANDY PDOB:1945 (79 yo F)Acc No.[id number]:04/15/2025 Progress Notes Patient: MANDY LAROSE Provider: Ken Francis MD :1945 A ge:79 Y S ex:Female Date:04/15/2025 Address:[address] [place], [place] [id number] Pcp:TESHA TORRES PA-C Subjective: * Chief Complaints: * 1 . PATIENT PRESENTS TODAY FOR POSITIVE COLOGUARD. * Medical History: H ypertension, Denies [place],DM,CVA,Lung disease,renal disease, Thyroid. * Surgical History: w [...] M iscellaneous: M arital status: . 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 D rug/Alcohol: A EMILY-C (Standard) [...] Follow-up G iving encouragement to exercise, B UT management provided Y es. Urinary Incontinence: U [...] 0 04/15/2025 Generated for Pat high/Bora/Rachaelitting on: 04/16/2025 06:53 AM EDT
--- OUTSIDE RECORDS SUMMARY | 2025-04-16 06:53 | XMS_ITS | Patient Health Record ---
Author [facility] [place] Address [address] [place] [address] Care Team Providers Care Earth Burner Name Role Phone Camacho BELL, [facility] Primary Care Provider Anita Damon Unavailable [phone] Allergies Allergen (clinical drug ingredient) Drug/Non Drug [...] Inc [address] [place] [address] [id number] Eufemia Jimenez Self - patient is the insured [employer] [address] [place] [address] [phone] [id number] Eufemia Jimenez Self - patient is the insured Medical (General) History Medical History History ICD Code Anxiety Arthritis Cataracts High blood pressure Poor circulation raynauds disease Measles Mumps Chicken pox Joint implants/screws Bone implants/screws Surgical History Surgery Date(Month/Year) whipple Surgery 09/05/2004 knee replacement 06/2014 vein surgery both legs 06/2020,08/2020
--- OUTSIDE RECORDS SUMMARY | 2025-04-16 06:53 | XMS_ITS | Encounter Summary ---
Author Organization [facility], Address [address] [place] [address] Phone Care Team Providers Care Manager Strategic Development Name Role Phone Etta Sauer MD Primary Care Provider [phone] Encounter Details Date Type Department Care Team (Late st Contact Info) Description 10/11/2021 Documentation Only [facility], [address] [place] [address] Irene Dos Santos [address] [place] [address] Social History Tobacco Use Types Packs/Day Years [...] on filedocumented in this encounter Care Teams Manager Strategic Development Relationship Specialty Start Date End Date Etta Sauer MD [facility] [place] [address] PCP - General Internal Medicine 10/28/20 documented as of this encounter
[2025-05-12 09:10] VITALS: BMI 35.2
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
[2025-05-14 07:41] VITALS: BMI 34.9
[2025-05-14 07:55] VITALS: BP 150/55; PULSE 66; RESP 18; TEMP 36.5; O2SAT 98
[2025-05-14] MEDS: Lactated Ringers 1,000 ML 100 ML IVCONT (07:55)
--- NOTE | 2025-05-14 08:05 | MHC.SHP ---
Pre-Procedural Eval Section A - 24 Hr Update-Section A only Date of Service: 05/14/25 Section B - Complete if H&P > 30 days Chief Complaint: Other fecal abnormalities Details of Present Illness: see H*&P no changes Relevant Family History (Specify if Yes): No Relevant Social History: None Present Medications: see Short Stay Collaborative assessment Medical History: No relevant PMH History of Previous Operations: No relevant previous surgery Allergies: Allergies Allergy/AdvReac Type Severity Reaction Status Date / Time hydrochlorothiazide Allergy Intermediate ITCHING Verified 05/14/25 07:39 (HYDROCHLOROTHIAZIDE) Penicillins (PENICILLINS) Allergy Intermediate RASH Verified 05/14/25 07:39 shellfish derived (shellfish) Allergy Intermediate redness Verified 05/14/25 07:39 and itching escitalopram (From Lexapro) AdvReac Mild Palpitation Verified 05/14/25 07:39 s Review of Systems Sugical H&P ROS: Negative: Constitution, Cardiovascular, Respiratory, Neurological, Psychiatric, Hem-Onc, Allergic/Immunologic, Gastrointestinal, Genitourinary, Musculoskeletal, Integumentary, Endocrine and Eyes/Ears/Nose/Throat Exam Surgical H&P Exam: Normal: HEENT, Normal: Heart, Normal: Lungs, Normal: Extremities, Normal: Abdomen, Normal: Skin and Normal: Neurological Plan Diagnosis/Plan: Unchanged I have reviewed the history and physical and performed a pertinent physical examination on my patient. No changes have occurred unless specified. Time Spent With Patient Time: Total time managing care of this patient today ____ minutes.
[2025-05-14 09:27] VITALS: BP 89/36; PULSE 57; RESP 16; TEMP 36.4; O2SAT 99
[2025-05-14 09:39] VITALS: BP 105/53; PULSE 57; RESP 16; TEMP 36.3; O2SAT 100
--- NOTE | 2025-05-14 10:34 | OP_ITS ---
DATE OF SERVICE: 05/14/2025 SURGEON: Kevin Francis MD INDICATIONS: abnormal findings in stool. PREOPERATIVE DIAGNOSIS: POSTOPERATIVE DIAGNOSIS: PROCEDURE PERFORMED: Colonoscopy to the cecum with hot snare polypectomy. ESTIMATED BLOOD LOSS: COMPLICATIONS: ANESTHESIA: Monitored anesthesia care. ASSISTANTS: SPECIMENS: DESCRIPTION OF PROCEDURE: A history and physical was performed. The risks and benefits of the procedure were explained to the patient, and informed consent was obtained. The patient was placed in the left lateral decubitus position. A digital rectal exam was performed and was found to be normal. The Olympus pediatric video colonoscope was introduced into the rectum and advanced to the cecum. The cecum was identified by transillumination, palpation, and identification of the ileocecal valve. Examination was performed. The scope was removed. She tolerated the procedure well and was returned to the recovery area in stable condition. FINDINGS: The terminal ileum was not examined. The visualized colonic mucosa was normal. In the right colon was a less than 5 mm sessile polyp, which was removed with a biopsy forceps. No other polyps were identified. Retroflexed examination was normal. There were internal hemorrhoids seen. IMPRESSION: Colon polyp. RECOMMENDATION: Follow up the biopsy results. MD SUKHDEEP Hairston/MODL / [id number]
== END 2025-05-14 10:11 | disposition home or self-care (01) ==
PROVIDERS: PCP Physician Assistant Medical; Visit Provider Internal Medicine Gastroenterology
PROC: 0DJD8ZZ Inspection of Lower Intestinal Tract, Via Natural or Artificial Opening Endoscopic (ICD-10-PCS; CPT 45378; principal; 2025-05-14 09:10)
DX: R19.5 Other fecal abnormalities (principal); D12.2 Benign neoplasm of ascending colon; I10 Essential (primary) hypertension; E03.9 Hypothyroidism, unspecified; Z79.02 Long term (current) use of antithrombotics/antiplatelets; Z79.82 Long term (current) use of aspirin; Z79.899 Other long term (current) drug therapy
CPT/HCPCS: 45380; 88305; J2003; J2704

== ENCOUNTER 2025-05-20 09:57 | Outpatient (AMB) | payer MEDICARE, SELFPAY ==
--- OUTSIDE RECORDS SUMMARY | 2024-06-12 05:10 | XMS_ITS ---
Author Organization Total [email or web address] Address [address] [facility] [address] [place] [address] Care Team Providers Care Striper Spray Gun Name Role Phone QUOC Lucero, KHLOE Primary Care Provider Unavail Janel Pina Unavailable [phone] REASON FOR VISIT INTERVAL LR MC Encounters Encounter Location Date Provider Diagnosis [email or web address] [address] [address] 06/12/2024 Janel Bryant Plan Of Treatment Next Appt Details Provider Name:Janel maurice, 07/01/2025 11:00:00 AM, [address] [place] [address], [facility] [address], [place], [address], Progress Notes * FALL[place] COLÓNOB:1945 ([age] yo F)Acc No.[id number]:06/12/2024 PROGRESS NOTES Patient: MANDY LAROSE Appointment Provider: Omkar Bryant M.D. :1945 A ge:78 Y S ex:Female Date:06/12/2024 Address:[address] [place], [place] [id number] Pcp:KHLOE KUMARI M.D. Subjective: * Chief Complaints: * 1 . INTERVAL LR MC. * Medical History: Objective: * Vitals: Assessment: Plan: * Treatment: * Images: Billing Information: * Visit Code: * Procedure Codes: * Electronic signature of Binta Bryant MD on 05/20/2025 at 11:42 AM EDT Sign off status: Pending * Appointment Provider: Omkar MarionD. Date: 1 Generated for Pat high/Bora/Rachaelitting on: 0 05/20/2025 11:42 AM EDT
--- OUTSIDE RECORDS SUMMARY | 2025-05-14 05:10 | XMS_ITS ---
Author Organization [facility] Address [address] [place] [id number] Care Team Providers Care Street Vendor Name Role Phone BRIAN GONZALEZ, TESHA Primary Care Provider Kevin Matamoros Jr REASON FOR VISIT abn findings in stool Encounters Encounter Location Date Provider Diagnosis [facility] Outpatient [address] [place] [phone] 05/14/2025 Kevin Francis Jr Plan Of Treatment No Information Progress Notes * ELDONCLARYE PDOB:1945 (79 yo F)Acc No.[id number]:05/14/2025 COLON WITH MAC Patient: MANDY LAROSE Provider: Ken Francis MD :1945 A ge:79 Y S ex:Female Date:05/14/2025 Address: [address] [id number] Pcp:TESHA TORRES PA-C Subjective: * Chief Complaints: [...] Date: 05/14/2025 Generated for Printi ng/Faxing/eTransmitting on: 05/20/2025 11:42 AM EDT
[2025-05-20 10:00] VITALS: BMI 34.9
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
--- OUTSIDE RECORDS SUMMARY | 2025-05-20 11:42 | XMS_ITS | Clinical Summary ---
Author Organization [facility], Address [address] [place] [address] [place] [address] Phone Care Team Providers Care Supervisor Edging Name Role Phone Etta Sauer MD Primary Care Provider [phone] Allergies Active Allergy Reactions Criticality Noted Date [...] age to complete this topic Insurance Medicare [facility] Care Teams Supervisor Edging Relationship Specialty Start Date End Date Etta Sauer MD [facility] [place] [address] PCP - General Internal Medicine 10/28/20
--- OUTSIDE RECORDS SUMMARY | 2025-05-20 11:42 | XMS_ITS | Patient Health Record ---
Author [facility] [place] Address [address] [place] [address] Care Team Providers Care Technical Testing Engineer Name Role Phone [facility] Primary Care Provider Anita Damon Unavailable [phone] Allergies Allergen (clinical drug ingredient) Drug/Non Drug [...] Inc [address] [place] [address] [id number] Eufemia Jimenez Self - patient is the insured [employer] [address] [place] [address] [id number] Eufemia Jimenez Self - patient is the insured Medical (General) History Medical History History ICD Code Anxiety Arthritis Cataracts High blood pressure Poor circulation raynauds disease Measles Mumps Chicken pox Joint implants/screws Bone implants/screws Surgical History Surgery Date(Month/Year) whipple Surgery 09/05/2004 knee replacement 06/2014 vein surgery both legs 06/2020,08/2020
--- OUTSIDE RECORDS SUMMARY | 2025-05-20 11:42 | XMS_ITS | Patient Health Record ---
Author Organization [facility] Address [address] [place] [address] Care Team Providers Care Baggage Agent Name Role Phone KHLOE KUMARI M.D. Primary Care Provider Unavail able Janel Bryant Unavailable [phone] Allergies Allergen (clinical drug ingredient) Drug/Non Drug [...] Status Risk Notes Problem Frequency of micturition (342037576) Frequency of micturition (R35.0) Active confirmed Problem Postmenopausal atrophic vaginitis (38349004) Postmenopausal atrophic vaginitis (N95.2) Active confirmed Problem Incomplete uterovaginal prolapse (130753438) Incomplete uterovaginal prolapse (N81.2) Active confirmed Problem Herniation of rectum into vagina (918083590) Rectocele (N81.6) Active confirmed Problem Cystocele (188341132) Cystocele, unspecified (N81.10) Active confirmed Problem Screening for malignant neoplasm of breast (952898417) Encounter for screening mammogram for malignant neoplasm of breast (Z12.31) Active confirmed Problem SI - Stress incontinence (25325920) Stress incontinence (female) (male) (N39.3) Active confirmed Problem Malignant neoplasm of [place] (402579709) 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) Active confirmed Major Problem Hyperlipidemia (00543949) Other and unspecified hyperlipidemia (272.4) Active confirmed Major Problem Nonsenile cataract (208273611) Unspecified nonsenile cataract (366.00) Active confirmed Major Problem Benign essential hypertension (2468949) Essential hypertension, benign (401.1) Active confirmed Major Problem Menopausal symptom (73279539) Symptomatic menopausal or female climacteric states (627.2) Active confirmed Major Problem Osteoarthritis (503250956) Osteoarthrosis, unspecified whether generalized or localized, unspecified site (715.90) Active confirmed Major Problem Gynecological examination normal (498799538449028) Routine gynecological examination (V72.31) Active confirmed Problem Exercises teaching, guidance, and counseling (524372814) Exercise counseling (V65.41) Active confirmed Diag Problem Screening for malignant neoplasm of colon (153676031) Special screening for malignant neoplasms, colon (V76.51) Active confirmed Major Vital Signs Temperature 97.4 degrees Fahrenheit 06/26/2024 Blood pressure diastolic 86 mm Hg 06/26/2024 Height 62.5 in 06/26/2024 Blood pressure systolic 122 mm Hg 06/26/2024 Weight 213 lbs 06/26/2024 BMI 38.33 kg/m2 06/26/2024 Encounters Encounter Location Date Provider Diagnosis Total [address] [address] 06/26/2024 Janel Bryant Encounter for gynecological examination [...] Name:Janel Francois johnalesia, 07/01/2025 11:00:00 AM, [address], [place], [address], Insurance Providers Payer Name Payer Address Payer Phone Subscriber Number Group Number Insured Name Patient Relationship to Insured Coverage Start Date Coverage End Date MEDICARE [address] [place] [id number] MANDY COLÓN Self - patient is the insured MEDEX [address] [place] [address] [phone] [id number] MANDY COLÓN Self - patient [...] of breast R92.1 Surgical History Surgery Date(Month/Year) [place] Teeth Tonsillectomy Whipple Surgery Left Knee Replacement Right Knee & Ankle Surgery Colonoscopy Right Cataracts Surgery Vascular Surgery Left Leg, Vein Strippin g Hospitalization History Reason Date(Month/Year) See Surgical Hx 2 Vaginal Deliveries
--- OUTSIDE RECORDS SUMMARY | 2025-05-20 11:42 | XMS_ITS | Encounter Summary ---
Author Organization [facility], Address [address] [place] [address] Phone Care Team Providers Care Shank Paperer Name Role Phone Etta Sauer MD Primary Care Provider [phone] Encounter Details Date Type Department Care Team (Late st Contact Info) Description 10/11/2021 Documentation Only [facility], [address] [place] [address] Irene Dos Santos [address] [place] [phone] Social History Tobacco Use Types Packs/Day Years [...] on filedocumented in this encounter Care Teams Shank Paperer Relationship Specialty Start Date End Date Etta Sauer MD [facility] [place] [address] PCP - General Internal Medicine 10/28/20 documented as of this encounter
--- OUTSIDE RECORDS SUMMARY | 2025-05-20 11:43 | XMS_ITS | Patient Health Record ---
Author Organization [facility] Address [address] [place] [address] Care Team Providers Care Cardiographer Name Role Phone TESHA TORRES PA-C Primary Care Provider Kevin Matamoros Jr Unavailable Allergies Allergen (clinical drug ingredient) Drug/Non Drug Allergy documented on EMR Reaction Allergy Type Onset Date Status Penicillin Unknown Drug Allergy Active hydrochlorothiazide Hydrochlorothiazide Unknown Drug Aller gy Active Shellfish (FN) SHELLFISH (uncoded) Unknown Allergy Active Results Component Value Reference Range Notes Pathology (Not yet reviewed by provider) Interpretation: Performing Lab:[facility], [address] [place] [id number] Notes/Report: Reason For Referral No Information Medications Medication [...] Status Risk Notes Problem Colon cancer screening (170137826) Colon cancer screening (V76.51) Active confirmed Problem Already on aspirin (391363274) snf current use of aspirin (V58.66) Active confirmed Vital Signs Blood pressure diastolic 77 mm Hg 04/15/2025 Height 63 in 04/15/2025 Blood pressure systolic 111 mm Hg 04/15/2025 Weight 198 lbs 04/15/2025 BMI 35.07 kg/m2 04/15/2025 Encounters Encounter Location Date Provider Diagnosis [facility] Outpatient [address] [place] [id number] 05/14/2025 Kevin Francis Jr [facility] [address] [place] [address] 04/15/2025 Kevin Francis Jr Abnormal findings in [...] day before the procedure. Plan Of Treatment Pending Test Test Name Order Date Pathology 05/14/2025 Future Test Test Name Order Date COLONOSCOPY 06/17/2013 COLONOSCOPY 04/15/2025 Insurance Providers Payer Name Payer Address Payer Phone Subscriber Number Group Number Insured Name Patient Relationship to Insured Coverage Start Date Coverage End Date [facility] [address] [place] [address] [id number] MANDY COLÓN Self - patient is the insured Medical (General) History Medical History History ICD Code hypertension Hyperlipidemia Aortic stenosis, mild Hypothyroidism Colonoscopy 2013, normal including biops ies Surgical History Surgery Date(Month/Year) knee repalcement x2 Whipple surgery for pancreatic insulinom a
== END 2025-05-20 11:13 | disposition home or self-care (01) ==
LOC: HO.HVS 09:57
PROVIDERS: PCP Physician Assistant Medical; Visit Provider Surgery Vascular Surgery
DX: I83.11 Varicose veins of right lower extremity with inflammation (principal); I83.12 Varicose veins of left lower extremity with inflammation; I89.0 Lymphedema, not elsewhere classified
CPT/HCPCS: 99214; G2211

== ENCOUNTER → 2025-05-20 09:57 | Outpatient (BNVA) | payer MEDICARE, SELFPAY | PROVIDERS: PCP Physician Assistant Medical; Visit Provider Surgery Vascular Surgery | DX: I83.11 Varicose veins of right lower extremity with inflammation (principal); I83.12 Varicose veins of left lower extremity with inflammation; I89.0 Lymphedema, not elsewhere classified | CPT/HCPCS: 99212 ==

== ENCOUNTER 2025-05-26 12:43 | Outpatient (AMB) | payer MEDICARE, SELFPAY ==
--- OUTSIDE RECORDS SUMMARY | 2024-06-12 05:10 | XMS_ITS ---
Author Organization Total [employer] [facility] Address [address] [facility] [address] [place] [address] Care Team Providers Care Mall Plant Caretaker Name Role Phone QUOC Lucero, KHLOE Primary Care Provider Unavail Janel Pina Unavailable [phone] REASON FOR VISIT INTERVAL LR MC Encounters Encounter Location Date Provider Diagnosis [facility] [employer] [address] [place] [address] 06/12/2024 Janel Bryant Plan Of Treatment Next Appt Details Provider Name:Janel maurice, 07/01/2025 11:00:00 AM, [address] [place] [address], [address], [place], [address], Progress Notes * FALLON COLÓNOB:1945 (7 0 yo F)Acc No.[id number]:06/12/2024 PROGRESS NOTES Patient: MANDY LAROSE Appointment Provider: Omkar Bryant M.D. :1945 A ge:78 Y S ex:Female Date:06/12/2024 Address:[address] [place], [place] [phone] Pcp:KHLOE KUMARI M.D. Subjective: * Chief Complaints: * 1 . INTERVAL LR MC. * Medical History: Objective: * Vitals: Assessment: Plan: * Treatment: * Images: Billing Information: * Visit Code: * Procedure Codes: * Electronic signature of Binta Bryant MD on 05/26/2025 at 03:12 PM EDT Sign off status: Pending * Appointment Provider: Omakr MarionD. Date: 1 Generated for Pat high/Bora/Bonnie on: 0 05/26/2025 03:12 PM EDT
--- OUTSIDE RECORDS SUMMARY | 2025-05-14 05:10 | XMS_ITS ---
Author Organization [facility] Address [address] [place] [phone] Care Team Providers Care Returner Name Role Phone BRIAN GONZALEZ, TESHA Primary Care Provider Kevin Matamoros Jr [phone] REASON FOR VISIT abn findings in stool Encounters Encounter Location Date Provider Diagnosis [facility] Outpatient [address] [place] [phone] 05/14/2025 Kevin Francis Jr Plan Of Treatment No Information Progress Notes * ELDONCLARYE PDOB:1945 (79 yo F)Acc No.[id number]:05/14/2025 COLON WITH MAC Patient: MANDY LAROSE Provider: Ken Francis MD :1945 A ge:79 Y S ex:Female Date:05/14/2025 Address: [address] [id number] Pcp:TESHA TORRES PA-C Subjective: * Chief Complaints: * 1 . Abn findings in stool. * Medical History: Objective: * Vitals: Assessment: Plan: * Treatment: * * The named appointment provid er may or may not be the originator of this progress note, and it is not deemed complete until electronically signed by the appointment provider. Sign off status: Pending * Provider: Ken Francis MD Date: 05/14/2025 Generated for Printi ng/Faxing/eTransmitting on: 05/26/2025 03:12 PM EDT
[2025-05-26 12:47] VITALS: BP 130/58; PULSE 66; O2SAT 95; BMI 35.1
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
--- OUTSIDE RECORDS SUMMARY | 2025-05-26 15:12 | XMS_ITS | Encounter Summary ---
Author Organization [facility], Address [address] [place] [address] Phone Care Team Providers Care Childcare Center Director Name Role Phone Etta Sauer MD Primary Care Provider [phone] Encounter Details Date Type Department Care Team (Late st Contact Info) Description 10/11/2021 Documentation Only [facility], [address] [place] [address] Irene Dos Santos [address] [place] [phone] Social History Tobacco Use Types Packs/Day Years [...] on filedocumented in this encounter Care Teams Childcare Center Director Relationship Specialty Start Date End Date Etta Sauer [place] [address] PCP - General Internal Medicine 10/28/20 documented as of this encounter
--- OUTSIDE RECORDS SUMMARY | 2025-05-26 15:13 | XMS_ITS | Clinical Summary ---
Author Organization [facility], Address [address] [place] [address] [place] [address] Phone Care Team Providers Care Heel Washer Stringing Machine Operator Name Role Phone Etta Sauer MD Primary Care Provider [phone] Allergies Active Allergy Reactions Criticality Noted Date [...] age to complete this topic Insurance Medicare [facility] Care Teams Heel Washer Stringing Machine Operator Relationship Specialty Start Date End Date Etta Sauer MD [facility] [place] [address] PCP - General Internal Medicine 10/28/20
--- OUTSIDE RECORDS SUMMARY | 2025-05-26 15:13 | XMS_ITS | Patient Health Record ---
Author Organization [facility] Address [address] [place] [address] Care Team Providers Care Manager Student Services Name Role Phone TESHA TORRES PA-C Primary Care Provider Kevin Matamoros Jr Unavailable Allergies Allergen (clinical drug ingredient) Drug/Non Drug Allergy documented on EMR Reaction Allergy Type Onset Date Status Penicillin Unknown Drug Allergy Active hydrochlorothiazide Hydrochlorothiazide Unknown Drug Aller gy Active Shellfish (FN) SHELLFISH (uncoded) Unknown Allergy Active Results Component Value Reference Range Notes Pathology Reviewed date:05/26/2025 08:28:29 AM Interpretation: Performing Lab:[facility], [address] [place] [phone] Notes/Report: Reason For Referral No Information Medications [...] Status Risk Notes Problem Colon cancer screening (006372579) Colon cancer screening (V76.51) Active confirmed Problem Already on aspirin (406621019) long term care phlebotomist current use of aspirin (V58.66) Active confirmed Vital Signs Blood pressure diastolic 77 mm Hg 04/15/2025 Height 63 in 04/15/2025 Blood pressure systolic 111 mm Hg 04/15/2025 Weight 198 lbs 04/15/2025 BMI 35.07 kg/m2 04/15/2025 Encounters Encounter Location Date Provider Diagnosis [facility] Outpatient [address] [place], [place] [id number] 05/14/2025 Kevin Francis Jr [facility] [address] [place] [phone] 04/15/2025 Kevin Francis Jr Abnormal findings in stool R19.5 [facility] [address] [place] [phone] 05/26/2025 Kevin Francis Jr Assessments Encounter Date Diagnosis (ICD Code) Assessment [...] Insured Coverage Start Date Coverage End Date [facility] [address] [place] [address] [id number] MANDY COLÓN Self - patient is the insured Medical (General) History Medical History History ICD Code hypertension Hyperlipidemia Aortic stenosis, mild Hypothyroidism Colonoscopy 2013, normal including biops ies Surgical History Surgery Date(Month/Year) knee repalcement x2 Whipple surgery for pancreatic insulinom a
--- OUTSIDE RECORDS SUMMARY | 2025-05-26 15:13 | XMS_ITS | Patient Health Record ---
Author Organization [facility] lud[facility]ina [place] Address [address] [place] [address] Care Team Providers Care Business Development Representative Name Role Phone Camacho BELL, [facility] Primary Care Provider Anita Damon Unavailable [phone] Allergies Allergen (clinical drug ingredient) Drug/Non Drug [...] Inc [address] [place] [address] [id number] Eufemia Jimenez Self - patient is the insured [employer] [address] [place] [address] [phone] [id number] Eufemia Jimenez Self - patient is the insured Medical (General) History Medical History History ICD Code Anxiety Arthritis Cataracts High blood pressure Poor circulation raynauds disease Measles Mumps Chicken pox Joint implants/screws Bone implants/screws Surgical History Surgery Date(Month/Year) whipple Surgery 09/05/2004 knee replacement 06/2014 vein surgery both legs 06/2020,08/2020
--- OUTSIDE RECORDS SUMMARY | 2025-05-26 15:13 | XMS_ITS | Patient Health Record ---
Author Organization [facility] Address [address] [place] [address] Care Team Providers Care University Relations Vice President Name Role Phone KHLOE KUMARI M.D. Primary Care Provider Unavail able Janel Bryant Unavailable [phone] Allergies Allergen (clinical drug ingredient) Drug/Non Drug [...] Status Risk Notes Problem Frequency of micturition (645758927) Frequency of micturition (R35.0) Active confirmed Problem Postmenopausal atrophic vaginitis (88309312) Postmenopausal atrophic vaginitis (N95.2) Active confirmed Problem Incomplete uterovaginal prolapse (634790621) Incomplete uterovaginal prolapse (N81.2) Active confirmed Problem Herniation of rectum into vagina (566696008) Rectocele (N81.6) Active confirmed Problem Cystocele (264278190) Cystocele, unspecified (N81.10) Active confirmed Problem Screening for malignant neoplasm of breast (909159764) Encounter for screening mammogram for malignant neoplasm of breast (Z12.31) Active confirmed Problem SI - Stress incontinence (15669736) Stress incontinence (female) (male) (N39.3) Active confirmed Problem Malignant neoplasm of Islets of [place] (977199741) 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) Active confirmed Major Problem Hyperlipidemia (40032648) Other and unspecified hyperlipidemia (272.4) Active confirmed Major Problem Nonsenile cataract (329605957) Unspecified nonsenile cataract (366.00) Active confirmed Major Problem Benign essential hypertension (6369150) Essential hypertension, benign (401.1) Active confirmed Major Problem Menopausal symptom (27372775) Symptomatic menopausal or female climacteric states (627.2) Active confirmed Major Problem Osteoarthritis (232314292) Osteoarthrosis, unspecified whether generalized or localized, unspecified site (715.90) Active confirmed Major Problem Gynecological examination normal (326426047553801) Routine gynecological examination (V72.31) Active confirmed Problem Exercises teaching, guidance, and counseling (892163528) Exercise counseling (V65.41) Active confirmed Diag Problem Screening for malignant neoplasm of colon (700662288) Special screening for malignant neoplasms, colon (V76.51) Active confirmed Major Vital Signs Temperature 97.4 degrees Fahrenheit 06/26/2024 Blood pressure diastolic 86 mm Hg 06/26/2024 Height 62.5 in 06/26/2024 Blood pressure systolic 122 mm Hg 06/26/2024 Weight 213 lbs 06/26/2024 BMI 38.33 kg/m2 06/26/2024 Encounters Encounter Location Date Provider Diagnosis Total [address] [address] 06/26/2024 Janel Bryant Encounter for gynecological examination [...] Francois johnalesia, 07/01/2025 11:00:00 AM, [address], [place], [address], Insurance Providers Payer Name Payer Address Payer Phone Subscriber Number Group Number Insured Name Patient Relationship to Insured Coverage Start Date Coverage End Date MEDICARE [address] [place] [id number] MANDY COLÓN Self - patient is the insured MEDEX [address] [place] [address] [id number] [phone] MANDY COLÓN Self - patient [...] of breast R92.1 Surgical History Surgery Date(Month/Year) [place] Teeth Tonsillectomy Whipple Surgery Left Knee Replacement Right Knee & Ankle Surgery Colonoscopy Right Cataracts Surgery Vascular Surgery Left Leg, Vein Strippin g Hospitalization History Reason Date(Month/Year) See Surgical Hx 2 Vaginal Deliveries
== END 2025-05-26 13:41 | disposition home or self-care (01) ==
LOC: HO.ENCR 12:44
PROVIDERS: PCP Physician Assistant Medical; Visit Provider Student in an Organized Health Care Education/Training Program
DX: E04.2 Nontoxic multinodular goiter (principal); C73 Malignant neoplasm of thyroid gland; E03.8 Other specified hypothyroidism
CPT/HCPCS: 99215; G2211

== ENCOUNTER → 2025-05-26 12:43 | Outpatient (BNVA) | payer MEDICARE, SELFPAY | PROVIDERS: PCP Physician Assistant Medical; Visit Provider Student in an Organized Health Care Education/Training Program | DX: E04.2 Nontoxic multinodular goiter (principal); E03.8 Other specified hypothyroidism; C73 Malignant neoplasm of thyroid gland | CPT/HCPCS: 99212 ==

== ENCOUNTER → 2025-06-02 13:25 | Outpatient (BNVA) | payer MEDICARE, SELFPAY | PROVIDERS: PCP Physician Assistant Medical; Visit Provider Physician Assistant Medical | DX: C73 Malignant neoplasm of thyroid gland (principal); H00.019 Hordeolum externum unspecified eye, unspecified eyelid | CPT/HCPCS: 96127 ==

== ENCOUNTER 2025-06-02 13:42 | Outpatient (AMB) | payer MEDICARE, SELFPAY ==
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
== END 2025-06-02 13:52 | disposition home or self-care (01) ==
LOC: HO.HMCSH 13:42
PROVIDERS: PCP Physician Assistant Medical; Visit Provider Physician Assistant Medical
DX: H00.019 Hordeolum externum unspecified eye, unspecified eyelid (principal); C73 Malignant neoplasm of thyroid gland

== ENCOUNTER 2025-06-15 08:20 | Outpatient (REF) | payer MEDICARE, SELFPAY ==
--- OUTSIDE RECORDS SUMMARY | 2024-06-12 05:10 | XMS_ITS ---
Author Organization Total [employer] [facility] [employer] [facility] Address [address] [facility] [address] [place] [address] Care Team Providers Care Senior Microsoft Consultant Name Role Phone QUOC Lucero, KHLOE Primary Care Provider Unavail Janel Pina Unavailable [phone] REASON FOR VISIT INTERVAL LR MC Encounters Encounter Location Date Provider Diagnosis [facility] [employer] [facility] [address] [place] [address] 06/12/2024 Janel Bryant Plan Of Treatment Next Appt Details Provider Name:Janel maurice, 07/01/2025 11:00:00 AM, [address] [place] [address], [address], [place], [address], Progress Notes * FALLON COLÓNOB:1945 (7 0 yo F)Acc No.[id number]:06/12/2024 PROGRESS NOTES Patient: MANDY LAROSE Appointment Provider: Omkar Bryant M.D. :1945 A ge:78 Y S ex:Female Date:06/12/2024 Address:[address] [place], [place] [phone] Pcp:KHLOE KUMARI M.D. Subjective: * Chief Complaints: * 1 . INTERVAL LR MC. * Medical History: Objective: * Vitals: Assessment: Plan: * Treatment: * Images: Billing Information: * Visit Code: * Procedure Codes: * Electronic signature of Binta Bryant MD on 06/15/2025 at 08:32 AM EDT Sign off status: Pending * Appointment Provider: Omkar MarionD. Date: Generated for Pat high/Bora/Bonnie on: 08:32 AM EDT
--- OUTSIDE RECORDS SUMMARY | 2025-05-14 05:10 | XMS_ITS ---
Author Organization [facility] Address [address] [place] [phone] Care Team Providers Care Broom Machine Operator Name Role Phone BRIAN GONZALEZ, TESHA Primary Care Provider Kevin Matamoros Jr REASON FOR VISIT abn findings in stool Encounters Encounter Location Date Provider Diagnosis [facility] Outpatient [address] [place] [phone] 05/14/2025 Kevin Francis Jr Plan Of Treatment No Information Progress Notes * ELDONCLAYRE PDOB:1945 (79 yo F)Acc No.[id number]:05/14/2025 COLON WITH MAC Patient: MANDY LAROSE Provider: Ken Francis MD :1945 A ge:79 Y S ex:Female Date:05/14/2025 Address: [address] [id number] Pcp:TESHA TORRES PA-C Subjective: * Chief Complaints: [...] * Provider: Ken Francis MD Date: 0 05/14/2025 Generated for Printi ng/Faxing/eTransmitting on: 1 08:33 AM EDT
--- OUTSIDE RECORDS SUMMARY | 2025-06-15 08:33 | XMS_ITS | Encounter Summary ---
Author Organization [facility], Address [address] [place] [address] Phone Care Team Providers Care Independent Insurance Adjuster Name Role Phone Etta Sauer MD Primary Care Provider [phone] Encounter Details Date Type Department Care Team (Late st Contact Info) Description 10/11/2021 Documentation Only [facility], [address] [place] [address] Irene Dos Santos [address] [place] [phone] Social History Tobacco Use Types Packs/Day Years [...] on filedocumented in this encounter Care Teams Independent Insurance Adjuster Relationship Specialty Start Date End Date Etta Sauer MD [facility] [place] [address] PCP - General Internal Medicine 10/28/20 documented as of this encounter
--- OUTSIDE RECORDS SUMMARY | 2025-06-15 08:33 | XMS_ITS | Patient Health Record ---
Author Organization [facility] ludivina [place] Address [address] [place] [address] Care Team Providers Care Coordinator Integrated Marketing Name Role Phone Camacho BELL, [facility] Primary Care Provider Anita Damon Unavailable [phone] Allergies Allergen (clinical drug ingredient) Drug/Non Drug [...] Inc [address] [place] [address] [id number] Eufemia Jimenez Self - patient is the insured [employer] [address] [place] [address] [phone] [id number] Eufemia Jimenez Self - patient is the insured Medical (General) History Medical History History ICD Code Anxiety Arthritis Cataracts High blood pressure Poor circulation raynauds disease Measles Mumps Chicken pox Joint implants/screws Bone implants/screws Surgical History Surgery Date(Month/Year) whipple Surgery 09/05/2004 knee replacement 06/2014 vein surgery both legs 06/2020,08/2020
--- OUTSIDE RECORDS SUMMARY | 2025-06-15 08:33 | XMS_ITS | Clinical Summary ---
Author Organization [facility], Address [address] [place] [address] [place] [address] Phone Care Team Providers Care Illusionist Name Role Phone Etta Sauer MD Primary Care Provider [phone] Allergies Active Allergy Reactions Criticality Noted Date [...] age to complete this topic Insurance Medicare [facility] Care Teams Illusionist Relationship Specialty Start Date End Date Etta Sauer MD [facility] [place] [address] PCP - General Internal Medicine 10/28/20
--- OUTSIDE RECORDS SUMMARY | 2025-06-15 08:33 | XMS_ITS | Patient Health Record ---
Author Organization [facility] Address [address] [place] [address] Care Team Providers Care Senior Hardware Engineer Name Role Phone KHLOE KUMARI M.D. Primary Care Provider Unavail able Janel Braynt Unavailable [phone] Allergies Allergen (clinical drug ingredient) Drug/Non Drug [...] Status Risk Notes Problem Frequency of micturition (132160546) Frequency of micturition (R35.0) Active confirmed Problem Postmenopausal atrophic vaginitis (92759602) Postmenopausal atrophic vaginitis (N95.2) Active confirmed Problem Incomplete uterovaginal prolapse (814806862) Incomplete uterovaginal prolapse (N81.2) Active confirmed Problem Herniation of rectum into vagina (943338624) Rectocele (N81.6) Active confirmed Problem Cystocele (599008507) Cystocele, unspecified (N81.10) Active confirmed Problem Screening for malignant neoplasm of breast (502844656) Encounter for screening mammogram for malignant neoplasm of breast (Z12.31) Active confirmed Problem SI - Stress incontinence (75240747) Stress incontinence (female) (male) (N39.3) Active confirmed Problem Malignant neoplasm of Islets of [place] (524836017) 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) Active confirmed Major Problem Hyperlipidemia (13005112) Other and unspecified hyperlipidemia (272.4) Active confirmed Major Problem Nonsenile cataract (254720672) Unspecified nonsenile cataract (366.00) Active confirmed Major Problem Benign essential hypertension (9333865) Essential hypertension, benign (401.1) Active confirmed Major Problem Menopausal symptom (23943938) Symptomatic menopausal or female climacteric states (627.2) Active confirmed Major Problem Osteoarthritis (004086552) Osteoarthrosis, unspecified whether generalized or localized, unspecified site (715.90) Active confirmed Major Problem Gynecological examination normal (685857522964209) Routine gynecological examination (V72.31) Active confirmed Problem Exercises teaching, guidance, and counseling (995524180) Exercise counseling (V65.41) Active confirmed Diag Problem Screening for malignant neoplasm of colon (550442527) Special screening for malignant neoplasms, colon (V76.51) Active confirmed Major Vital Signs Temperature 97.4 degrees Fahrenheit 06/26/2024 Blood pressure diastolic 86 mm Hg 06/26/2024 Height 62.5 in 06/26/2024 Blood pressure systolic 122 mm Hg 06/26/2024 Weight 213 lbs 06/26/2024 BMI 38.33 kg/m2 06/26/2024 Encounters Encounter Location Date Provider Diagnosis Total [address] [address] 06/26/2024 Janel Bryant Encounter for gynecological examination [...] Name:Janel Francois johnalesia, 07/01/2025 11:00:00 AM, [address], [address], [place], [address], Insurance Providers Payer Name Payer Address Payer Phone Subscriber Number Group Number Insured Name Patient Relationship to Insured Coverage Start Date Coverage End Date MEDICARE [address] [place] [id number] MANDY COLÓN Self - patient is the insured MEDEX [address] [place] [address] [id number] [phone] MANDY COLÓN Self - patient [...] of breast R92.1 Surgical History Surgery Date(Month/Year) [place] Teeth Tonsillectomy Whipple Surgery Left Knee Replacement Right Knee & Ankle Surgery Colonoscopy Right Cataracts Surgery Vascular Surgery Left Leg, Vein Strippin g Hospitalization History Reason Date(Month/Year) See Surgical Hx 2 Vaginal Deliveries
--- OUTSIDE RECORDS SUMMARY | 2025-06-15 08:34 | XMS_ITS | Patient Health Record ---
Author Organization [facility] Address [address] [place] [address] Care Team Providers Care Counter Supply Worker Name Role Phone TESHA TORRES PA-C Primary Care Provider Kevin Matamoros Jr Unavailable Allergies Allergen (clinical drug ingredient) Drug/Non Drug Allergy documented on EMR Reaction Allergy Type Onset Date Status Penicillin Unknown Drug Allergy Active hydrochlorothiazide Hydrochlorothiazide Unknown Drug Aller gy Active Shellfish (FN) SHELLFISH (uncoded) Unknown Allergy Active Results Component Value Reference Range Notes Pathology Reviewed date:05/26/2025 08:28:29 AM Interpretation: Performing Lab:[facility], [address] [place] [phone] Notes/Report: Reason For Referral No Information Medications Medication SIG (Take, Route, Frequency, Duration) Notes Start Date End Date Status Rosuvastatin Calcium 5 MG Oral; Duration: 90 Days Active Atenolol 100 MG Oral; Duration: 90 Days Active Losartan Potassium 100 MG Oral; Duration: 90 Days Active Levothyroxine Sodium 25 MCG Oral; Duration: 42 Days Active Aspirin Active Clindamycin HCl 300 MG Oral; Duration: 6 Days Active Enzyme Active Daily Vitamin [...] Status Risk Notes Problem Colon cancer screening (145555061) Colon cancer screening (V76.51) Active confirmed Problem Already on aspirin (793691654) custodial current use of aspirin (V58.66) Active confirmed Vital Signs Blood pressure diastolic 77 mm Hg 04/15/2025 Height 63 in 04/15/2025 Blood pressure systolic 111 mm Hg 04/15/2025 Weight 198 lbs 04/15/2025 BMI 35.07 kg/m2 04/15/2025 Encounters Encounter Location Date Provider Diagnosis [facility] [address] [place], [place] [id number] 05/14/[address] [facility] [address] [place] [address] 04/15/2025 Kevin Francis Jr Abnormal findings in stool R19.5 [facility] [address] [place] [address] 05/26/2025 Kevin Francis Jr Assessments Encounter Date [...] Insured Coverage Start Date Coverage End Date [facility] [address] [place] [address] [id number] MANDY COLÓN Self - patient is the insured Medical (General) History Medical History History ICD Code hypertension Hyperlipidemia Aortic stenosis, mild Hypothyroidism Colonoscopy 2013, normal including biops ies Surgical History Surgery Date(Month/Year) knee repalcement x2 Whipple surgery for pancreatic insulinom a
[2025-06-15 11:32] LABS: Free T4 (Free Thyroxine) 0.93 ng/dL (0.71-1.85); Thyroid Stimulating Hormone 4.46 uIU/mL (0.32-4.0)
== END 2025-06-15 08:21 | disposition home or self-care (01) ==
LOC: HO.HMGCLDS 08:20
PROVIDERS: PCP Physician Assistant Medical; Visit Provider Student in an Organized Health Care Education/Training Program
DX: E04.2 Nontoxic multinodular goiter (principal); E03.8 Other specified hypothyroidism; E55.9 Vitamin D deficiency, unspecified
CPT/HCPCS: 36415; 82306; 84439; 84443; 86376